=== PATIENT | female | born 1975 | race Caucasian/White ===

== ENCOUNTER 2016-09-14 23:29 | Emergency (ER) | payer BC, OTHER ==
[~2016-09-14] VITALS: Ht 167.6 cm; Wt 113.4 kg
[~2016-09-14 23:29] MED LIST: ALPR0.5T PO; ALPR0.5T7 PO; ARIP15TA PO; ATOR20TA66 PO; AZIT250T81 PO; BUSP10TA95 PO; CEFU250T11 PO; CIPR500T21 PO; D-ME118S33 PO; FLUO40CA PO; GUAI-555 PO; HYDR-3454 PO; HYDR-3820 PO; IBUP200T48 PO; LAMO150T3 PO; LAMO200T2 PO; METO-272 PO; METO-352 PO; MIRT15TA6 PO; NF-URO10 PO; OMEP40CA36 PO; POTA15TA9 PO; RANI150T15 PO; SPIR25TA3 PO; TPR25T PO; TRAZ150T42 PO; VENL75CA PO; VOLTAR PO; ZLP5T PO
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
[2016-09-15] MEDS ORDERED: NAPR500T3 PO (01:15)
[2016-09-15] MEDS ORDERED: RX-CYCLOBENZAPRINE 10 MG (FLEXERIL) TAB PPK#3 PO STA (01:15)
[2016-09-15] MEDS ORDERED: CYCL10TA9 PO (01:15)
[2016-09-15] MEDS ORDERED: RX-NAPROXEN (NAPROSYN) 250 MG TAB PPK#4 PO STA (01:15)
[2016-09-15] MEDS ORDERED: RX-CYCLOBENZAPRINE 10 MG (FLEXERIL) TAB PPK#3 PO ONE (01:22)
[2016-09-15] MEDS ORDERED: RX-NAPROXEN (NAPROSYN) 250 MG TAB PPK#4 PO ONE (01:22)
[2016-09-15 01:28] VITALS: BP 104/59
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
== END 2016-09-15 01:28 | disposition home or self-care (01) ==
LOC: EDUNIT# 23:29 → ER 23:31
DX: S00.93XA Contusion of unspecified part of head, initial encounter (principal); S16.1XXA Strain of muscle, fascia and tendon at neck level, initial encounter; S39.012A Strain of muscle, fascia and tendon of lower back, initial encounter; N20.0 Calculus of kidney; N83.202 Unspecified ovarian cyst, left side; R91.1 Solitary pulmonary nodule; V40.5XXA Car driver injured in collision with pedestrian or animal in traffic accident, initial encounter; Y92.410 Unspecified street and highway as the place of occurrence of the external cause; Y99.8 Other external cause status
CPT/HCPCS: 70450; 71010; 72125; 72128; 72131; 73030; 99283

== ENCOUNTER → 2017-03-12 | Outpatient (CLI) | payer BC, OTHER ==
[~2017-03-12] MED LIST changes: +CYCL10TA9 PO; +IOHEXOL 350 MG/ML 100 ML (OMNIPAQUE 350) VIAL IV ONE; +NAPR500T3 PO; +NS 100 ML (IVPB) BAG IV ONE
--- NOTE | 2017-03-12 12:21 | Diagnostic Imaging Report ---
PROCEDURE: CT pelvis with contrast. TECHNIQUE: Oral and intravenous contrast were administered with pelvic CT performed. INDICATION: Left lower quadrant pain. 100 mL of Omnipaque 350 is administered intravenously. FINDINGS: There is a fluid attenuation lesion in the left adnexa measuring 4 x 2.7 x 2.6 cm likely related to an ovarian cyst. No definite solid component is seen. There is suggestion of prior hysterectomy. The right adnexa demonstrate no definite abnormality. The appendix projects into the lower pelvis and appears normal. There is no significant peritoneal free fluid or evidence of abscess. The urinary bladder appears unremarkable. The osseous structures appear unremarkable. IMPRESSION: 4 cm fluid attenuation lesion in the left adnexa likely related to an ovarian cyst. Dictated by: Dictated on workstation # [id number]
== END ==
LOC: RAD 11:07
PROVIDERS: ATTEND Internal Medicine
DX: R19.09 Other intra-abdominal and pelvic swelling, mass and lump (principal)
CPT/HCPCS: 72193

== ENCOUNTER 2017-07-23 21:24 | Emergency (ER) | payer BC ==
[~2017-07-23] VITALS: Ht 167.6 cm; Wt 104.8 kg
[~2017-07-23 21:24] MED LIST changes: -IOHEXOL 350 MG/ML 100 ML (OMNIPAQUE 350) VIAL IV ONE; -METO-272 PO; +METO-370 PO; +NAPR-915 PO; -NAPR500T3 PO; -NS 100 ML (IVPB) BAG IV ONE
--- OUTSIDE RECORDS SUMMARY | 2017-07-23 21:30 | XMS REPORT ---
Author Author HANANE CHRISTIANSON Organization [facility] Address [address] [place] [address] Care Team Providers Care Head Transfer Clerk Name Role Phone SAMMY HANANE Unavailable PROBLEMS Type Condition ICD9-CM Code [id number] Code Onset Dates Condition Status SNOMED Code Problem Atherosclerosis of coronary artery of [place] heart without angina pectoris, unspecified vessel or lesion type I25.10 Active 055300994 Problem Acquired hypothyroidism E03.9 Active 144688796 Problem Wellness examination Z00.00 Active 155275509 Problem HTN (hypertension) I10 Active 80113879 Problem Bipolar depression F31.30 Active 70276372 Problem Pure hypercholesterolemia E78.00 Active 331250744 Problem Bladder spasms N32.89 Active 888564515 Problem Menopausal symptoms N95.1 Active 08370442 Problem Lumbago with sciatica, right side M54.41 Active 560746950 Problem Lumbago with sciatica, left side M54.42 Active 950212199 Problem Gastroesophageal reflux disease without esophagitis K21.9 Active 842957132 Problem Pain in thoracic spine M54.6 Active 895679948977082 ALLERGIES Substance Reaction Event Type Date Status Prednisone aggitation Drug Allergy September, Active Plastic Tape Unknown Non Drug Allergy September, Active SOCIAL HISTORY Never Assessed PLAN OF CARE Activity Details Follow Up 2 Weeks Reason:w/ PCP for follow up VITAL SIGNS Height 66 in 2016-10-06 Weight 247 lbs 2016-10-06 Temperature 98.3 degrees Fahrenheit 2016-10-06 Heart Rate 70 bpm 2016-10-06 Respiratory Rate 20 2016-10-06 BMI 39.86 kg/m2 2016-10-06 Blood pressure systolic 120 mmHg 2016-10-06 Blood pressure diastolic 84 mmHg 2016-10-06 MEDICATIONS Medication Instructions Dosage Frequency Start Date End Date Duration Status Hydrocodone-Acetaminophen 5-325 MG Orally every 6 hrs 1 tablet as needed 6h September, September, 07 days Active Spironolactone 25 TAKE ONE TABLET BY MOUTH DAILY 30 Active Metoprolol Tartrate 50 MG Orally Once a day 1 tablet 24h Active Tizanidine HCl 4 MG Orally Three times a day 1 tablet as needed 8h September, September, 07 days Active W23-Hjapfy 1 MG Active Ibuprofen 800 MG Orally Three times a day 1 tablet with food or milk 8h September, Oct, 30 day(s) Active buspirone 10 mg by inhalation route 2 times a day take 1 tablet by Oral route 3 times per day 12h Apr, Active Zantac 150 TAKE ONE TABLET BY MOUTH TWICE A DAY 30 Active Rexulti 1 MG Orally Once a day 1 tablet 24h Active Effexor XR 75 MG Orally Once a day 1 capsule with food 24h Active Lipitor 40 MG Orally Once a day 1 tablet 24h Active Xanax 0.5 mg 1 tablet by Oral route 2 times per day PRN before tests and other anxiety Dec, Active RESULTS Name Result Date Reference Range Xray : Spine, Thoracic 2 views (IN HOUSE) 2016-10-06 Xray : Spine, Cervical (IN HOUSE) 2016-10-06 PROCEDURES Procedure Date Ordered Result Body Site X-RAY EXAM OF THORACIC SPINE October 06, 2016 X-RAY EXAM OF NECK SPINE October 06, 2016 IMMUNIZATIONS No Known Immunizations MEDICAL (GENERAL) HISTORY Type Description Date Medical History hyperlipidemia Medical History arthritis in hands Medical History anxiety Medical History bi-polar Medical History Borderline Personality Disorder Surgical History cholecystectomy 2005 Surgical History hysterectomy - endometriosis 2001 Surgical History orthopedic surgery - right shoulder 1993 & 2005 Surgical History arthroscopic knee surgery - right knee - 1993 Surgical History colonoscopy 2009 Surgical History heart cath w/ Dr. Trejo WNL 2013 Surgical History Left foot-removed soft tissue growth/plantar faciatis 2014 Surgical History colonoscopy EGD 05/03/2015 Surgical History bladder mesh 08/2015 Hospitalization History no hospitalizations except surgeries
--- OUTSIDE RECORDS SUMMARY | 2017-07-23 21:30 | XMS REPORT ---
Author Author DASIA SMITH Organization [facility] Address [address] [place] [address] Care Team Providers Care Quantitative Associate Name Role Phone DASIA SMITH Unavailable PROBLEMS Type Condition ICD9-CM Code [id number] Code Onset Dates Condition Status SNOMED Code Problem HTN (hypertension) I10 Active 54918063 Problem Atherosclerosis of coronary artery of [place] heart without angina pectoris, unspecified vessel or lesion type I25.10 Active 186873813 Problem Wellness examination Z00.00 Active 504775832 Problem Pure hypercholesterolemia E78.00 Active 420244720 Problem Bipolar depression F31.30 Active 29643249 Problem Menopausal symptoms N95.1 Active 95596943 Problem Gastroesophageal reflux disease without esophagitis K21.9 Active 790503738 Problem Lumbago with sciatica, right side M54.41 Active 457077055 Problem Acquired hypothyroidism E03.9 Active 390753441 Problem Pain in thoracic spine M54.6 Active 142250841139341 Problem Lumbago with sciatica, left side M54.42 Active 932279196 ALLERGIES No Known Allergies SOCIAL HISTORY No smoking Hx information available PLAN OF CARE VITAL SIGNS MEDICATIONS Medication Instructions Dosage Frequency Start Date End Date Duration Status Lipitor 40 MG Orally Once a day 1 tablet 24h Active RESULTS No Results PROCEDURES No Known procedures IMMUNIZATIONS No Known Immunizations
--- OUTSIDE RECORDS SUMMARY | 2017-07-23 21:32 | XMS REPORT ---
Author Author CHELSIE QUINN Organization [facility] Address [address] [place] [address] Care Team Providers Care Gardener Name Role Phone RAI QUINNICE Unavailable PROBLEMS Type Condition ICD9-CM Code IJH67-CM Code Onset Dates Condition Status SNOMED Code Problem Atherosclerosis of coronary artery of [place] heart without angina pectoris, unspecified vessel or lesion type I25.10 Active 444045036 Problem Acquired hypothyroidism E03.9 Active 006184720 Problem Wellness examination Z00.00 Active 459226549 Problem HTN (hypertension) I10 Active 85204763 Problem Bipolar depression F31.30 Active 69573981 Problem Pure hypercholesterolemia E78.00 Active 867555387 Problem Bladder spasms N32.89 Active 082500023 Problem Menopausal symptoms N95.1 Active 12259977 Problem Lumbago with sciatica, right side M54.41 Active 614456618 Problem Lumbago with sciatica, left side M54.42 Active 944468960 Problem Gastroesophageal reflux disease without esophagitis K21.9 Active 270496418 Problem Pain in thoracic spine M54.6 Active 838812466092311 ALLERGIES Substance Reaction Event Type Date Status Prednisone aggitation Drug Allergy September, Active Plastic Tape Unknown Non Drug Allergy September, Active SOCIAL HISTORY Never Assessed PLAN OF CARE Activity Details Follow Up prn Reason: VITAL SIGNS Height 66 in 2016-10-25 Weight 244.2 lbs 2016-10-25 Temperature 98.6 degrees Fahrenheit 2016-10-25 Heart Rate 76 bpm 2016-10-25 Respiratory Rate 20 2016-10-25 BMI 39.41 kg/m2 2016-10-25 Blood pressure systolic 130 mmHg 2016-10-25 Blood pressure diastolic 78 mmHg 2016-10-25 MEDICATIONS Medication Instructions Dosage Frequency Start Date End Date Duration Status Rexulti 1 MG Orally Once a day 1 tablet 24h Active Effexor XR 75 MG Orally Once a day 1 capsule with food 24h Active buspirone 10 mg by inhalation route 2 times a day take 1 tablet by Oral route 3 times per day 12h Apr, Active J38-Cfcwzv 1 MG Active Zantac 150 TAKE ONE TABLET BY MOUTH TWICE A DAY 30 Active Xanax 0.5 mg 1 tablet by Oral route 2 times per day PRN before tests and other anxiety Dec, Active Lipitor 40 MG Orally Once a day 1 tablet 24h Active Ibuprofen 800 MG Orally Three times a day 1 tablet with food or milk 8h September, Oct, 30 day(s) Active Spironolactone 25 TAKE ONE TABLET BY MOUTH DAILY 30 Active Metoprolol Tartrate 50 MG Orally Once a day 1 tablet 24h Active Cephalexin 500 MG Orally every 12 hrs 1 capsule 12h September, Oct, 10 day(s) Active Phenazopyridine HCl 200 MG Orally Three times a day 1 tablet after meals 8h September, September, 3 days Active RESULTS Name Result Date Reference Range STREP A (IN HOUSE) 2016-10-25 STREP A positive Control + Lot # [id number] Exp date feb 15 UA LONG DIP (IN HOUSE) 2016-10-25 Lot # [id number] Exp date 2017 08 30 Clarity cloudy Color yellow Odor none GLU negative FRANK negative KET negative SG 1.025 BLO 2+ pH 6.0 Protein 2+ URO 0.2 NIT negative DEX 3+ Lot # [id number] Exp date 2017 07 CULTURE, URINE 2016-10-25 Urine Culture, Routine Final report Result 1 Escherichia coli Antimicrobial Susceptibility PROCEDURES Procedure Date Ordered Result Body Site STREP A ASSAY W/OPTIC October 25, 2016 URINALYSIS, AUTO, W/O SCOPE October 25, 2016 URINE CULTURE/COLONY COUNT October 25, 2016 IMMUNIZATIONS No Known Immunizations MEDICAL (GENERAL) HISTORY Type Description Date Medical History hyperlipidemia Medical History arthritis in hands Medical History anxiety Medical History bi-polar Medical History Borderline Personality Disorder Surgical History cholecystectomy 2006 Surgical History hysterectomy - endometriosis 2001 Surgical [...]
--- OUTSIDE RECORDS SUMMARY | 2017-07-23 21:34 | XMS REPORT | Continuity of Care Document ---
Author Author [facility] Address Unknown Phone Unavailable Allergies Active Description Code Type Severity Reaction Onset Reported/Identified Relationship to Patient Clinical Status Yes plastic tape OA N/A N/A 06/20/2012 Yes prednisone Drug Allergy N/A N/A 06/20/2012 Yes plastic tape OA 06/20/2012 Yes prednisone Drug Allergy 06/20/2012 Yes STEROIDS STEROIDS Mild N/A 04/08/2014 Yes tomato [id number] Drug Allergy Unknown HIVES 05/17/2014 Yes tomato Drug Allergy N/A N/A 05/22/2014 Medications There is no data. Problems Date Dx Coded Attending Type Code Diagnosis Diagnosed By 04/08/2012 MARSHAL LAMBERT APRN 296.52 MO BIPOLAR I DEPRESSED MODERATE 04/08/2012 NEREIDA JONES DO 296.52 MO BIPOLAR I DEPRESSED MODERATE 04/08/2012 296.52 MO BIPOLAR I DEPRESSED MODERATE 04/08/2012 MYKEL ZAMBRANO, ESTRELLA Ramirez 296.52 MO BIPOLAR I DEPRESSED MODERATE 04/08/2012 MARSHAL LAMBERT APRN 296.52 MO BIPOLAR I DEPRESSED MODERATE 04/08/2012 NEREIDA JONES DO 296.52 MO BIPOLAR I DEPRESSED MODERATE 04/08/2012 NEREIDA JONES DO 296.52 MO BIPOLAR I DEPRESSED MODERATE 04/08/2012 MYKEL ZAMBRANO, ESTRELLA Ramirez 296.52 MO BIPOLAR I DEPRESSED MODERATE 04/08/2012 296.52 MO BIPOLAR I DEPRESSED MODERATE 04/08/2012 296.52 MO BIPOLAR I DEPRESSED MODERATE 04/08/2012 296.52 MO BIPOLAR I DEPRESSED MODERATE 04/08/2012 NEREIDA JONES DO 296.52 MO BIPOLAR I DEPRESSED MODERATE 04/08/2012 296.52 MO BIPOLAR I DEPRESSED MODERATE 04/08/2012 296.52 MO BIPOLAR I DEPRESSED MODERATE 04/08/2012 296.52 MO BIPOLAR I DEPRESSED MODERATE 04/08/2012 296.52 MO BIPOLAR I DEPRESSED MODERATE 04/08/2012 AMARILYS PEÑA DO 296.52 MO BIPOLAR I DEPRESSED MODERATE 04/08/2012 BLAYNE LEMUS DDS 296.52 MO BIPOLAR I DEPRESSED MODERATE 04/08/[address] BETTS 296.52 MO BIPOLAR I DEPRESSED MODERATE 04/08/2012 ALFONSO NIELSEN MD 296.52 MO BIPOLAR I DEPRESSED MODERATE 04/08/2012 PETRA STOLL, MARSHAL S 296.52 MO BIPOLAR I DEPRESSED MODERATE 04/08/2012 PETRA STOLL MARSHAL S 296.52 MO BIPOLAR I DEPRESSED MODERATE 04/08/2012 DESHPANDERUBEN STOLL, PK BETTS 296.52 MO BIPOLAR I DEPRESSED MODERATE 04/08/2012 PEÑA DO, AMARILYS K 296.52 MO BIPOLAR I DEPRESSED MODERATE 04/08/2012 DESHPANDERUBEN STOLL, PK BETTS 296.52 MO BIPOLAR I DEPRESSED MODERATE 04/08/2012 DESHPANDERUBEN STOLL, PK BETTS 296.52 MO BIPOLAR I DEPRESSED MODERATE 04/08/2012 PETRA STOLL, MARSHAL S 296.52 MO BIPOLAR I DEPRESSED MODERATE 04/08/2012 PEÑA DO, AMARILYS K 296.52 MO BIPOLAR I DEPRESSED MODERATE 04/08/2012 FELIX DPM, KOLE 296.52 MO BIPOLAR I DEPRESSED MODERATE 04/08/2012 FELIX DPM, KOLE 296.52 MO BIPOLAR I DEPRESSED MODERATE 04/08/2012 FELIX DPM, KOLE 296.52 MO BIPOLAR I DEPRESSED MODERATE 04/08/2012 FELIX DPM, KOLE 296.52 MO BIPOLAR I DEPRESSED MODERATE 04/08/2012 PETRA STOLL, MARSHAL S 296.52 MO BIPOLAR I DEPRESSED MODERATE 04/08/2012 PETRA STOLL, MARSHAL S 296.52 MO BIPOLAR I DEPRESSED MODERATE 04/08/2012 FELIX DPM, KOLE 296.52 MO BIPOLAR I DEPRESSED MODERATE 04/08/2012 OMAIRA CARDENAS APRN D 296.52 MO BIPOLAR I DEPRESSED MODERATE 04/08/2012 OMAIRA CARDENAS APRN D 296.52 MO BIPOLAR I DEPRESSED MODERATE 05/02/2012 SUNNY LAMBERT APRNNDA S 256.4 POLYCYSTIC OVARIAN SYNDROME 05/02/2012 SUNNY LAMBERT APRNNDA S 272.0 HYPERCHOLESTEROLEMIA 05/02/2012 SUNNY LAMBERT APRNNDA S 305.1 NONDEPENDENT TOBACCO USE DISORDER 05/02/2012 NEREIDA JONES DO 256.4 POLYCYSTIC OVARIAN SYNDROME 05/02/2012 NEREIDA JONES DO 272.0 HYPERCHOLESTEROLEMIA 05/02/2012 NEREIDA JONES DO 305.1 NONDEPENDENT TOBACCO USE DISORDER 05/02/2012 256.4 POLYCYSTIC OVARIAN SYNDROME 05/02/2012 272.0 HYPERCHOLESTEROLEMIA 05/02/2012 305.1 NONDEPENDENT TOBACCO USE DISORDER 05/02/2012 ESTRELLA HOGUE PHD 256.4 POLYCYSTIC OVARIAN SYNDROME 05/02/2012 ESTRELLA HOGUE PHD 272.0 HYPERCHOLESTEROLEMIA 05/02/2012 ESTRELLA HOGUE PHD 305.1 NONDEPENDENT TOBACCO USE DISORDER 05/02/2012 EREN LAMBERT APRNA S 256.4 POLYCYSTIC OVARIAN SYNDROME 05/02/2012 PETRA STOLL MARSHAL S 272.0 HYPERCHOLESTEROLEMIA 05/02/2012 PETRA STOLL MARSHAL S 305.1 NONDEPENDENT TOBACCO USE DISORDER 05/02/2012 NEREIDA JONES DO 256.4 POLYCYSTIC OVARIAN SYNDROME 05/02/2012 NEREIDA JONES DO 272.0 HYPERCHOLESTEROLEMIA 05/02/2012 NEREIDA JONES DO 305.1 NONDEPENDENT TOBACCO USE DISORDER 05/02/2012 NEREIDA JONES DO 256.4 POLYCYSTIC OVARIAN SYNDROME 05/02/2012 NEREIDA JONES DO 272.0 HYPERCHOLESTEROLEMIA 05/02/2012 NEREIDA JONES DO 305.1 NONDEPENDENT TOBACCO USE DISORDER 05/02/2012 ESTRELLA HOGUE PHD 256.4 POLYCYSTIC OVARIAN SYNDROME 05/02/2012 ESTRELLA HOGUE PHD 272.0 HYPERCHOLESTEROLEMIA 05/02/2012 ESTRELLA HOGUE PHD 305.1 NONDEPENDENT TOBACCO USE DISORDER 05/02/2012 256.4 POLYCYSTIC OVARIAN SYNDROME 05/02/2012 272.0 HYPERCHOLESTEROLEMIA 05/02/2012 305.1 NONDEPENDENT TOBACCO USE DISORDER 05/02/2012 256.4 POLYCYSTIC OVARIAN SYNDROME 05/02/2012 272.0 HYPERCHOLESTEROLEMIA 05/02/2012 305.1 NONDEPENDENT TOBACCO USE DISORDER 05/02/2012 256.4 POLYCYSTIC OVARIAN SYNDROME 05/02/2012 272.0 HYPERCHOLESTEROLEMIA 05/02/2012 305.1 NICOTINE DEPENDENCE 05/02/2012 NEREIDA JONES DO 256.4 POLYCYSTIC OVARIAN SYNDROME 05/02/2012 NEREIDA JONES DO 272.0 HYPERCHOLESTEROLEMIA 05/02/2012 NEREIDA JONES DO 305.1 NICOTINE DEPENDENCE 05/02/2012 256.4 POLYCYSTIC OVARIAN SYNDROME 05/02/2012 272.0 HYPERCHOLESTEROLEMIA 05/02/2012 305.1 NICOTINE DEPENDENCE 05/02/2012 256.4 POLYCYSTIC OVARIAN SYNDROME 05/02/2012 272.0 HYPERCHOLESTEROLEMIA 05/02/2012 305.1 NICOTINE DEPENDENCE 05/02/2012 256.4 POLYCYSTIC OVARIAN SYNDROME 05/02/2012 272.0 HYPERCHOLESTEROLEMIA 05/02/2012 305.1 NICOTINE DEPENDENCE 05/02/2012 256.4 POLYCYSTIC OVARIAN SYNDROME 05/02/2012 272.0 HYPERCHOLESTEROLEMIA 05/02/2012 305.1 NICOTINE DEPENDENCE 05/02/2012 PEÑA DO, AMARILYS K 256.4 POLYCYSTIC OVARIAN SYNDROME 05/02/2012 PEÑA DO, AMARILYS K 272.0 HYPERCHOLESTEROLEMIA 05/02/2012 PEÑA DO, AMARILYS K 305.1 NICOTINE DEPENDENCE 05/02/2012 BLAYNE LEMUS DDS 256.4 POLYCYSTIC OVARIAN SYNDROME 05/02/2012 MARIAH LOPEZS, BLAYNE M 272.0 HYPERCHOLESTEROLEMIA 05/02/2012 MARIAH LOPEZS, BLAYNE M 305.1 NICOTINE DEPENDENCE 05/02/2012 PK DESHPANDE APRN 256.4 POLYCYSTIC OVARIAN SYNDROME 05/02/2012 PK DESHPANDE APRN 272.0 HYPERCHOLESTEROLEMIA 05/02/2012 PK DESHPANDE APRN 305.1 NICOTINE DEPENDENCE 05/02/2012 ALFONSO NIELSEN MD 256.4 POLYCYSTIC OVARIAN SYNDROME 05/02/2012 ALFONSO NIELSEN MD 272.0 HYPERCHOLESTEROLEMIA 05/02/2012 ALFONSO NIELSEN MD 305.1 NICOTINE DEPENDENCE 05/02/2012 SUNNY LAMBERT APRNNDA S 256.4 POLYCYSTIC OVARIAN SYNDROME 05/02/2012 PETRA STOLL, MARSHAL S 272.0 HYPERCHOLESTEROLEMIA 05/02/2012 PETRA STOLL, MARSHAL S 305.1 NONDEPENDENT TOBACCO USE DISORDER 05/02/2012 PETRA STOLL, MARSHAL S 256.4 POLYCYSTIC OVARIAN SYNDROME 05/02/2012 PETRA STOLL, MARSHAL S 272.0 HYPERCHOLESTEROLEMIA 05/02/2012 PETRA STOLL, MARSHAL S 305.1 NICOTINE DEPENDENCE 05/02/2012 PK DESHPANDE APRN 256.4 POLYCYSTIC OVARIAN SYNDROME 05/02/2012 PK DESHPANDE APRN 272.0 HYPERCHOLESTEROLEMIA 05/02/2012 PK DESHPANDE APRN 305.1 NICOTINE DEPENDENCE 05/02/2012 PEÑA DO, AMARILYS K 256.4 POLYCYSTIC OVARIAN SYNDROME 05/02/2012 PEÑA DO, AMARILYS K 272.0 HYPERCHOLESTEROLEMIA 05/02/2012 PEÑA DO, AMARILYS K 305.1 NICOTINE DEPENDENCE 05/02/2012 CHARLEE STOLL, PK BETTS 256.4 POLYCYSTIC OVARIAN SYNDROME 05/02/2012 CHARLEE B OPERATOR, PK BETTS 272.0 HYPERCHOLESTEROLEMIA 05/02/2012 CHARLEE WEBBN, PK BETTS 305.1 NICOTINE DEPENDENCE 05/02/2012 CHARLEE WEBBN, PK BETTS 256.4 POLYCYSTIC OVARIAN SYNDROME 05/02/2012 CHARLEE WEBBN, PK BETTS 272.0 HYPERCHOLESTEROLEMIA 05/02/2012 CHARLEE STOLL, PK BETTS 305.1 NICOTINE DEPENDENCE 05/02/2012 PETRASUNNY ANSARI APRNNDA S 256.4 POLYCYSTIC OVARIAN SYNDROME 05/02/2012 SUNNY LAMBERT APRNNDA S 272.0 HYPERCHOLESTEROLEMIA 05/02/2012 PETRA STOLL MARSHAL S 305.1 NICOTINE DEPENDENCE 05/02/2012 PEÑA DO, AMARILYS K 256.4 POLYCYSTIC OVARIAN SYNDROME 05/02/2012 PEÑA DO, AMARILYS K 272.0 HYPERCHOLESTEROLEMIA 05/02/2012 PEÑA DO, AMARILYS K 305.1 NICOTINE DEPENDENCE 05/02/2012 FELIX DPM, KOLE 256.4 POLYCYSTIC OVARIAN SYNDROME 05/02/2012 FELIX DPM, KOLE 272.0 HYPERCHOLESTEROLEMIA 05/02/2012 FELIX DPM, KOLE 305.1 NICOTINE DEPENDENCE 05/02/2012 FELIX DPM, KOLE 256.4 POLYCYSTIC OVARIAN SYNDROME 05/02/2012 FELIX DPM, KOLE 272.0 HYPERCHOLESTEROLEMIA 05/02/2012 FELIX DPM, KOLE 305.1 NICOTINE DEPENDENCE 05/02/2012 FELIX DPM, KOLE 256.4 POLYCYSTIC OVARIAN SYNDROME 05/02/2012 FELIX DPM, KOLE 272.0 HYPERCHOLESTEROLEMIA 05/02/2012 FELIX DPM, KOLE 305.1 NICOTINE DEPENDENCE 05/02/2012 FELIX DPM, KOLE 256.4 POLYCYSTIC OVARIAN SYNDROME 05/02/2012 FELIX DPM, KOLE 272.0 HYPERCHOLESTEROLEMIA 05/02/2012 FELIX DPM, KOLE 305.1 NICOTINE DEPENDENCE 05/02/2012 PETRA B OPERATOR, MARSHLA S 256.4 POLYCYSTIC OVARIAN SYNDROME 05/02/2012 PETRA STOLL, MARSHAL S 272.0 HYPERCHOLESTEROLEMIA 05/02/2012 PETRA WEBBN, MARSHAL S 305.1 NICOTINE DEPENDENCE 05/02/2012 PETRA WEBBN, MARSHAL S 256.4 POLYCYSTIC OVARIAN SYNDROME 05/02/2012 PETRA WEBBN, MARSHAL S 272.0 HYPERCHOLESTEROLEMIA 05/02/2012 PETRA WEBBN, MARSHAL S 305.1 NICOTINE DEPENDENCE 05/02/2012 FELIX DPM, KOLE 256.4 POLYCYSTIC OVARIAN SYNDROME 05/02/2012 FELIX DPM, KOLE 272.0 HYPERCHOLESTEROLEMIA 05/02/2012 FELIX DPM, KOLE 305.1 NICOTINE DEPENDENCE 05/02/2012 OMAIRA CARDENAS APRN 256.4 POLYCYSTIC OVARIAN SYNDROME 05/02/2012 OMAIRA CARDENAS APRN D 272.0 HYPERCHOLESTEROLEMIA 05/02/2012 OMAIRA CARDENAS APRN 305.1 NICOTINE DEPENDENCE 05/02/2012 OMAIRA CARDENAS APRN 256.4 POLYCYSTIC OVARIAN SYNDROME 05/02/2012 OMAIRA CARDENAS APRN 272.0 HYPERCHOLESTEROLEMIA 05/02/2012 OMAIRA CARDENAS APRN 305.1 NICOTINE DEPENDENCE 05/05/2012 SUNNY LAMBERT APRNNDA S 244.9 HYPOTHYROIDISM 05/05/2012 NEREIDA JONES DO 244.9 HYPOTHYROIDISM 05/05/2012 244.9 HYPOTHYROIDISM 05/05/2012 MYKEL PHD, ESTRELLA Ramirez 244.9 HYPOTHYROIDISM 05/05/2012 EREN LAMBERT APRNA S 244.9 HYPOTHYROIDISM 05/05/2012 NEREIDA JONES DO 244.9 HYPOTHYROIDISM 05/05/2012 NEREIDA JONES DO 244.9 HYPOTHYROIDISM 05/05/2012 MYKEL PHD, ESTRELLA Ramirez 244.9 HYPOTHYROIDISM 05/05/2012 244.9 HYPOTHYROIDISM 05/05/2012 244.9 HYPOTHYROIDISM 05/05/2012 244.9 HYPOTHYROIDISM 05/05/2012 NEREIDA JONES DO 244.9 HYPOTHYROIDISM 05/05/2012 244.9 HYPOTHYROIDISM 05/05/2012 244.9 HYPOTHYROIDISM 05/05/2012 244.9 HYPOTHYROIDISM 05/05/2012 244.9 HYPOTHYROIDISM 05/05/2012 AMARILYS PEÑA DO 244.9 HYPOTHYROIDISM 05/05/2012 MARIAH SMITH, BLAYNE [place] 244.9 HYPOTHYROIDISM 05/05/2012 DESHPANDE B OPERATOR, PK BETTS 244.9 HYPOTHYROIDISM 05/05/2012 GIA GRIJALVA, ALFONSO 244.9 HYPOTHYROIDISM 05/05/2012 SUNNY LAMBERT APRNNDA S 244.9 HYPOTHYROIDISM 05/05/2012 CHARLEE WEBBN, PK BETTS 244.9 HYPOTHYROIDISM 05/05/2012 PEÑA DO, AMARILYS K 244.9 HYPOTHYROIDISM 05/05/2012 CHARLEE WEBBN, PK BETTS 244.9 HYPOTHYROIDISM 05/05/2012 DESHPANDE B OPERATOR, PK BETTS 244.9 HYPOTHYROIDISM 05/05/2012 PETRA STOLL, MARSHAL S 244.9 HYPOTHYROIDISM 05/05/2012 PEÑA DO, AMARILYS K 244.9 HYPOTHYROIDISM 05/05/2012 FELIX DPM, KLOE 244.9 HYPOTHYROIDISM 05/05/2012 FELIX DPM, KOLE 244.9 HYPOTHYROIDISM 05/05/2012 FELIX DPM, KOLE 244.9 HYPOTHYROIDISM 05/05/2012 FELIX DPM, KOLE 244.9 HYPOTHYROIDISM 05/05/2012 SUNNY LAMBERT APRNNDA S 244.9 HYPOTHYROIDISM 05/05/2012 SUNNY LAMBERT APRNNDA S 244.9 HYPOTHYROIDISM 05/05/2012 FELIX DPM, KOLE 244.9 HYPOTHYROIDISM 05/05/2012 OMAIRA CARDENAS APRN 244.9 HYPOTHYROIDISM 05/05/2012 OMAIRA CARDENAS APRN 244.9 HYPOTHYROIDISM 05/19/2012 NEREIDA JONES DO 296.80 BIPOLAR DISORDER UNSPECIFIED 05/19/2012 NEREIDA JONES DO 300.23 AN SOCIAL PHOBIA 05/19/2012 296.80 BIPOLAR DISORDER UNSPECIFIED 05/19/2012 300.23 AN SOCIAL PHOBIA 05/19/2012 MYKEL ZAMBRANO, ESTRELLA Ramirez 296.80 BIPOLAR DISORDER UNSPECIFIED 05/19/2012 MYKEL ZAMBRANO, ESTRELLA Ramirez 300.23 AN SOCIAL PHOBIA 05/19/2012 MARSHAL LAMBERT APRN S 296.80 BIPOLAR DISORDER UNSPECIFIED 05/19/2012 EREN LAMBERT APRNA S 300.23 AN SOCIAL PHOBIA 05/19/2012 NEREIDA JONES DO 296.80 BIPOLAR DISORDER UNSPECIFIED 05/19/2012 NEREIDA JONES DO 300.23 AN SOCIAL PHOBIA 05/19/2012 WERDER DO, NEREIDA F 296.80 BIPOLAR DISORDER UNSPECIFIED 05/19/2012 KAREN DONEREIDA F 300.23 AN SOCIAL PHOBIA 05/19/2012 ESTRELLA HOGUE PHD 296.80 BIPOLAR DISORDER UNSPECIFIED 05/19/2012 ESTRELLA HOGUE PHD 300.23 AN SOCIAL PHOBIA 05/19/2012 296.80 BIPOLAR DISORDER UNSPECIFIED 05/19/2012 300.23 AN SOCIAL PHOBIA 05/19/2012 296.80 BIPOLAR DISORDER UNSPECIFIED 05/19/2012 300.23 AN SOCIAL PHOBIA 05/19/2012 296.80 BIPOLAR DISORDER UNSPECIFIED 05/19/2012 300.23 AN SOCIAL PHOBIA 05/19/2012 WERMANJEET DO, NEREIDA F 296.80 BIPOLAR DISORDER UNSPECIFIED 05/19/2012 KAREN DO NEREIDA F 300.23 AN SOCIAL PHOBIA 05/19/2012 296.80 BIPOLAR DISORDER UNSPECIFIED 05/19/2012 300.23 AN SOCIAL PHOBIA 05/19/2012 296.80 BIPOLAR DISORDER UNSPECIFIED 05/19/2012 300.23 AN SOCIAL PHOBIA 05/19/2012 296.80 BIPOLAR DISORDER UNSPECIFIED 05/19/2012 300.23 AN SOCIAL PHOBIA 05/19/2012 296.80 BIPOLAR DISORDER UNSPECIFIED 05/19/2012 300.23 AN SOCIAL PHOBIA 05/19/2012 PEÑA DOAMARILYS K 296.80 BIPOLAR DISORDER UNSPECIFIED 05/19/2012 PEÑA DOKIANA K 300.23 AN SOCIAL PHOBIA 05/19/2012 BLAYNE LEMUS DDS 296.80 BIPOLAR DISORDER UNSPECIFIED 05/19/2012 BLAYNE LEMUS DDS 300.23 AN SOCIAL PHOBIA 05/19/2012 PK DESHPANDE APRN 296.80 BIPOLAR DISORDER UNSPECIFIED 05/19/2012 PK DESHPANDE APRN 300.23 AN SOCIAL PHOBIA 05/19/2012 ALFONSO NIELSEN MD 296.80 BIPOLAR DISORDER UNSPECIFIED 05/19/2012 ALFONSO NIELSEN MD 300.23 AN SOCIAL PHOBIA 05/19/2012 MARSHAL LAMBERT APRN S 296.80 BIPOLAR DISORDER UNSPECIFIED 05/19/2012 MARSHAL LAMBERT APRN S 300.23 AN SOCIAL PHOBIA 05/19/2012 PK DESHPANDE APRN 296.80 BIPOLAR DISORDER UNSPECIFIED 05/19/2012 DESHPANDE B OPERATOR, PK ALPESH 300.23 AN SOCIAL PHOBIA 05/19/2012 PEÑA DO, AMARILYS K 296.80 BIPOLAR DISORDER UNSPECIFIED 05/19/2012 PEÑA DO, AMARILYS K 300.23 AN SOCIAL PHOBIA 05/19/2012 DESHPANDE B OPERATOR, PK BETTS 296.80 BIPOLAR DISORDER UNSPECIFIED 05/19/2012 DESHPANDE B OPERATOR, PK BETTS 300.23 AN SOCIAL PHOBIA 05/19/2012 DESHPANDE B OPERATOR, PK BETTS 296.80 BIPOLAR DISORDER UNSPECIFIED 05/19/2012 DESHPANDE B OPERATOR, PK BETTS 300.23 AN SOCIAL PHOBIA 05/19/2012 PETRA TSOLL, MARSHAL S 296.80 BIPOLAR DISORDER UNSPECIFIED 05/19/2012 PETRA STOLL, MARSHAL S 300.23 AN SOCIAL PHOBIA 05/19/2012 PEÑA DO, AMARILYS K 296.80 BIPOLAR DISORDER UNSPECIFIED 05/19/2012 PEÑA DO, AMARILYS K 300.23 AN SOCIAL PHOBIA 05/19/2012 FELIX DPM, KOLE 296.80 BIPOLAR DISORDER UNSPECIFIED 05/19/2012 FELIX DPM, KOLE 300.23 AN SOCIAL PHOBIA 05/19/2012 FELIX DPM, KOLE 296.80 BIPOLAR DISORDER UNSPECIFIED 05/19/2012 FELIX DPM, KOLE 300.23 AN SOCIAL PHOBIA 05/19/2012 FELIX DPM, KOLE 296.80 BIPOLAR DISORDER UNSPECIFIED 05/19/2012 FELIX DPM, KOLE 300.23 AN SOCIAL PHOBIA 05/19/2012 FELIX DPM, KOLE 296.80 BIPOLAR DISORDER UNSPECIFIED 05/19/2012 FELIX DPM, KOLE 300.23 AN SOCIAL PHOBIA 05/19/2012 PETRA STOLL, MARSHAL S 296.80 BIPOLAR DISORDER UNSPECIFIED 05/19/2012 PETRA STOLL, MARSHAL S 300.23 AN SOCIAL PHOBIA 05/19/2012 PETRA STOLL MARSHAL S 296.80 BIPOLAR DISORDER UNSPECIFIED 05/19/2012 PETRA STOLL MARSHAL S 300.23 AN SOCIAL PHOBIA 05/19/2012 FELIX DPM, KOLE 296.80 BIPOLAR DISORDER UNSPECIFIED 05/19/2012 FELIX DPM, KOLE 300.23 AN SOCIAL PHOBIA 05/19/2012 OMAIRA CARDENAS APRN 296.80 BIPOLAR DISORDER UNSPECIFIED 05/19/2012 OMAIRA CARDENAS APRN 300.23 AN SOCIAL PHOBIA 05/19/2012 OMAIRA CARDENAS APRN 296.80 BIPOLAR DISORDER UNSPECIFIED 05/19/2012 OMAIRA CARDENAS APRN 300.23 AN SOCIAL PHOBIA 06/20/2012 EREN LAMBERT APRNA S 782.1 RASH AND OTHER NONSPECIFIC SKIN ERUPTION 06/20/2012 EREN LAMBERT APRNA S V72.31 REINFORCING STEEL MACHINE OPERATOR EXAM, ROUTINE 06/20/2012 SUNNY LAMBERT APRNNDA S V76.10 BREAST CANCER SCREENING 06/20/2012 PETRA STOLL MARSHAL S V76.2 CERVICAL CANCER SCREENING (PAP SMEAR) 06/20/2012 NEREIDA JONES DO 782.1 RASH AND OTHER NONSPECIFIC SKIN ERUPTION 06/20/2012 NEREIDA JONES DO V72.31 REINFORCING STEEL MACHINE OPERATOR EXAM, ROUTINE 06/20/2012 NEREIDA JONES DO V76.10 BREAST CANCER SCREENING 06/20/2012 NEREIDA JONES DO V76.2 CERVICAL CANCER SCREENING (PAP SMEAR) 06/20/2012 NEREIDA JONES DO 782.1 RASH AND OTHER NONSPECIFIC SKIN ERUPTION 06/20/2012 NEREIDA JONES DO V72.31 REINFORCING STEEL MACHINE OPERATOR EXAM, ROUTINE 06/20/2012 NEREIDA JONES DO V76.10 BREAST CANCER SCREENING 06/20/2012 NEREIDA JONES DO V76.2 CERVICAL CANCER SCREENING (PAP SMEAR) 06/20/2012 ESTRELLA HOGUE PHD 782.1 RASH AND OTHER NONSPECIFIC SKIN ERUPTION 06/20/2012 ESTRELLA HOGUE PHD V72.31 REINFORCING STEEL MACHINE OPERATOR EXAM, ROUTINE 06/20/2012 ESTRELLA HOGUE PHD V76.10 BREAST CANCER SCREENING 06/20/2012 ESTRELLA HOGUE PHD V76.2 CERVICAL CANCER SCREENING (PAP SMEAR) 06/20/2012 782.1 RASH AND OTHER NONSPECIFIC SKIN ERUPTION 06/20/2012 V72.31 REINFORCING STEEL MACHINE OPERATOR EXAM, ROUTINE 06/20/2012 V76.10 BREAST CANCER SCREENING 06/20/2012 V76.2 CERVICAL CANCER SCREENING (PAP SMEAR) 06/20/2012 782.1 RASH AND OTHER NONSPECIFIC SKIN ERUPTION 06/20/2012 V72.31 REINFORCING STEEL MACHINE OPERATOR EXAM, ROUTINE 06/20/2012 V76.10 BREAST CANCER SCREENING 06/20/2012 V76.2 CERVICAL CANCER SCREENING (PAP SMEAR) 06/20/2012 782.1 RASH AND OTHER NONSPECIFIC SKIN ERUPTION 06/20/2012 V72.31 REINFORCING STEEL MACHINE OPERATOR EXAM, ROUTINE 06/20/2012 V76.10 BREAST CANCER SCREENING 06/20/2012 V76.2 CERVICAL CANCER SCREENING (PAP SMEAR) 06/20/2012 NEREIDA JONES DO F 782.1 RASH AND OTHER NONSPECIFIC SKIN ERUPTION 06/20/2012 NEREIDA JONES DO F V72.31 REINFORCING STEEL MACHINE OPERATOR EXAM, ROUTINE 06/20/2012 NEREIDA JONES DO F V76.10 BREAST CANCER SCREENING 06/20/2012 NEREIDA JONES DO F V76.2 CERVICAL CANCER SCREENING (PAP SMEAR) 06/20/2012 782.1 RASH AND OTHER NONSPECIFIC SKIN ERUPTION 06/20/2012 V72.31 REINFORCING STEEL MACHINE OPERATOR EXAM, ROUTINE 06/20/2012 V76.10 BREAST CANCER SCREENING 06/20/2012 V76.2 CERVICAL CANCER SCREENING (PAP SMEAR) 06/20/2012 782.1 RASH AND OTHER NONSPECIFIC SKIN ERUPTION 06/20/2012 V72.31 REINFORCING STEEL MACHINE OPERATOR EXAM, ROUTINE 06/20/2012 V76.10 BREAST CANCER SCREENING 06/20/2012 V76.2 CERVICAL CANCER SCREENING (PAP SMEAR) 06/20/2012 782.1 RASH AND OTHER NONSPECIFIC SKIN ERUPTION 06/20/2012 V72.31 REINFORCING STEEL MACHINE OPERATOR EXAM, ROUTINE 06/20/2012 V76.10 BREAST CANCER SCREENING 06/20/2012 V76.2 CERVICAL CANCER SCREENING (PAP SMEAR) 06/20/2012 782.1 RASH AND OTHER NONSPECIFIC SKIN ERUPTION 06/20/2012 V72.31 REINFORCING STEEL MACHINE OPERATOR EXAM, ROUTINE 06/20/2012 V76.10 BREAST CANCER SCREENING 06/20/2012 V76.2 CERVICAL CANCER SCREENING (PAP SMEAR) 06/20/2012 AMARILYS PEÑA DO 782.1 RASH AND OTHER NONSPECIFIC SKIN ERUPTION 06/20/2012 AMARILYS PEÑA DO K V72.31 REINFORCING STEEL MACHINE OPERATOR EXAM, ROUTINE 06/20/2012 AMARILYS PEÑA DO K V76.10 BREAST CANCER SCREENING 06/20/2012 KIAN PEÑA DOA K V76.2 CERVICAL CANCER SCREENING (PAP SMEAR) 06/20/2012 BLAYNE LEMUS DDS 782.1 RASH AND OTHER NONSPECIFIC SKIN ERUPTION 06/20/2012 BLAYNE LEMUS DDS V72.31 REINFORCING STEEL MACHINE OPERATOR EXAM, ROUTINE 06/20/2012 BLAYNE LEMUS DDS V76.10 BREAST CANCER SCREENING 06/20/2012 BLAYNE LEMUS DDS V76.2 CERVICAL CANCER SCREENING (PAP SMEAR) 06/20/2012 PK DESHPANDE APRN 782.1 RASH AND OTHER NONSPECIFIC SKIN ERUPTION 06/20/2012 CHARLEE STOLL PK ALPESH V72.31 REINFORCING STEEL MACHINE OPERATOR EXAM, ROUTINE 06/20/2012 PK DESHPANDE APRN V76.10 BREAST CANCER SCREENING 06/20/2012 PK DESHPANDE APRN V76.2 CERVICAL CANCER SCREENING (PAP SMEAR) 06/20/2012 ALFONSO NIELSEN MD 782.1 RASH AND OTHER NONSPECIFIC SKIN ERUPTION 06/20/2012 ALFONSO NIELSEN MD V72.31 REINFORCING STEEL MACHINE OPERATOR EXAM, ROUTINE 06/20/2012 ALFONSO NIELSEN MD V76.10 BREAST CANCER SCREENING 06/20/2012 ALFONSO NIELSEN MD V76.2 CERVICAL CANCER SCREENING (PAP SMEAR) 06/20/2012 EREN LAMBERT APRNA S 782.1 RASH AND OTHER NONSPECIFIC SKIN ERUPTION 06/20/2012 MARSHAL LAMBERT APRN S V72.31 REINFORCING STEEL MACHINE OPERATOR EXAM, ROUTINE 06/20/2012 EREN LAMBERT APRNA S V76.10 BREAST CANCER SCREENING 06/20/2012 EREN LAMBERT APRNA S V76.2 CERVICAL CANCER SCREENING (PAP SMEAR) 06/20/2012 PK DESHPANDE APRN 782.1 RASH AND OTHER NONSPECIFIC SKIN ERUPTION 06/20/2012 PK DESHPANDE APRN V72.31 REINFORCING STEEL MACHINE OPERATOR EXAM, ROUTINE 06/20/2012 PK DESHPANDE APRN V76.10 BREAST CANCER SCREENING 06/20/2012 PK DESHPANDE APRN V76.2 CERVICAL CANCER SCREENING (PAP SMEAR) 06/20/2012 MARIANA WOLFE AMARILYS K 782.1 RASH AND OTHER NONSPECIFIC SKIN ERUPTION 06/20/2012 MARIANA WOLFE AMARILYS K V72.31 REINFORCING STEEL MACHINE OPERATOR EXAM, ROUTINE 06/20/2012 PEÑA DO AMARILYS K V76.10 BREAST CANCER SCREENING 06/20/2012 MARIANA WOLFE AMARILYS K V76.2 CERVICAL CANCER SCREENING (PAP SMEAR) 06/20/2012 PK DESHPANDE APRN 782.1 RASH AND OTHER NONSPECIFIC SKIN ERUPTION 06/20/2012 DESHPANDERUBEN STOLL PK BETTS V72.31 REINFORCING STEEL MACHINE OPERATOR EXAM, ROUTINE 06/20/2012 DESHPANDE B OPERATOR, PK BETTS V76.10 BREAST CANCER SCREENING 06/20/2012 DESHPANDE B OPERATOR, PK BETTS V76.2 CERVICAL CANCER SCREENING (PAP SMEAR) 06/20/2012 DESHPANDE DODIE PK BETTS 782.1 RASH AND OTHER NONSPECIFIC SKIN ERUPTION 06/20/2012 DESHPANDE B OPERATOR, PK BETTS V72.31 REINFORCING STEEL MACHINE OPERATOR EXAM, ROUTINE 06/20/2012 DESHPANDE B OPERATOR, PK BETTS V76.10 BREAST CANCER SCREENING 06/20/2012 DESHPANDE B OPERATOR, PK BETTS V76.2 CERVICAL CANCER SCREENING (PAP SMEAR) 06/20/2012 PETRA STOLL MARSHAL S 782.1 RASH AND OTHER NONSPECIFIC SKIN ERUPTION 06/20/2012 PETRA STOLL MARSHAL S V72.31 REINFORCING STEEL MACHINE OPERATOR EXAM, ROUTINE 06/20/2012 PETRA STOLL MARSHAL S V76.10 BREAST CANCER SCREENING 06/20/2012 PETRA STOLL MARSHAL S V76.2 CERVICAL CANCER SCREENING (PAP SMEAR) 06/20/2012 PEÑA DO AMARILYS K 782.1 RASH AND OTHER NONSPECIFIC SKIN ERUPTION 06/20/2012 PEÑA DO AMARILYS K V72.31 REINFORCING STEEL MACHINE OPERATOR EXAM, ROUTINE 06/20/2012 PEÑA DO AMARILYS K V76.10 BREAST CANCER SCREENING 06/20/2012 PEÑA DO AMARILYS K V76.2 CERVICAL CANCER SCREENING (PAP SMEAR) 06/20/2012 FELIX DPM, KOLE 782.1 RASH AND OTHER NONSPECIFIC SKIN ERUPTION 06/20/2012 FELIX DPM, KOLE V72.31 REINFORCING STEEL MACHINE OPERATOR EXAM, ROUTINE 06/20/2012 FELIX DPM, KOLE V76.10 BREAST CANCER SCREENING 06/20/2012 FELIX DPM, KOLE V76.2 CERVICAL CANCER SCREENING (PAP SMEAR) 06/20/2012 FELIX DPM, KOLE 782.1 RASH AND OTHER NONSPECIFIC SKIN ERUPTION 06/20/2012 FELIX DPM, KOLE V72.31 REINFORCING STEEL MACHINE OPERATOR EXAM, ROUTINE 06/20/2012 FELIX DPM, KOLE V76.10 BREAST CANCER SCREENING 06/20/2012 FELIX DPM, KOLE V76.2 CERVICAL CANCER SCREENING (PAP SMEAR) 06/20/2012 FELIX DPM, KOLE 782.1 RASH AND OTHER NONSPECIFIC SKIN ERUPTION 06/20/2012 FELIX DPM, KOLE V72.31 REINFORCING STEEL MACHINE OPERATOR EXAM, ROUTINE 06/20/2012 FELIX DPM, KOLE V76.10 BREAST CANCER SCREENING 06/20/2012 FELIX DPM, KOLE V76.2 CERVICAL CANCER SCREENING (PAP SMEAR) 06/20/2012 FELIX DPM, KOLE 782.1 RASH AND OTHER NONSPECIFIC SKIN ERUPTION 06/20/2012 FELIX DPM, KOLE V72.31 REINFORCING STEEL MACHINE OPERATOR EXAM, ROUTINE 06/20/2012 FELIX DPM, KOLE V76.10 BREAST CANCER SCREENING 06/20/2012 FELIX DPM, KOLE V76.2 CERVICAL CANCER SCREENING (PAP SMEAR) 06/20/2012 PETRA STOLL MRASHAL S 782.1 RASH AND OTHER NONSPECIFIC SKIN ERUPTION 06/20/2012 SUNNY LAMBERT APRNNDA S V72.31 REINFORCING STEEL MACHINE OPERATOR EXAM, ROUTINE 06/20/2012 PETRA B OPERATOR, MARSHAL S V76.10 BREAST CANCER SCREENING 06/20/2012 PETRA B OPERATOR, MARSHAL S V76.2 CERVICAL CANCER SCREENING (PAP SMEAR) 06/20/2012 PETRA STOLL MARSHAL S 782.1 RASH AND OTHER NONSPECIFIC SKIN ERUPTION 06/20/2012 PETRA STOLL MARSHAL S V72.31 REINFORCING STEEL MACHINE OPERATOR EXAM, ROUTINE 06/20/2012 PETRA STOLL MARSHAL S V76.10 BREAST CANCER SCREENING 06/20/2012 PETRA STOLL MARSHAL S V76.2 CERVICAL CANCER SCREENING (PAP SMEAR) 06/20/2012 FELIX DPM, KOLE 782.1 RASH AND OTHER NONSPECIFIC SKIN ERUPTION 06/20/2012 FELIX DPM, KOLE V72.31 REINFORCING STEEL MACHINE OPERATOR EXAM, ROUTINE 06/20/2012 FELIX DPM, KOLE V76.10 BREAST CANCER SCREENING 06/20/2012 FELIX DPM, KOLE V76.2 CERVICAL CANCER SCREENING (PAP SMEAR) 06/20/2012 OMAIRA CARDENAS APRN 782.1 RASH AND OTHER NONSPECIFIC SKIN ERUPTION 06/20/2012 OMAIRA CARDENAS APRN V72.31 REINFORCING STEEL MACHINE OPERATOR EXAM, ROUTINE 06/20/2012 OMAIRA CARDENAS APRN V76.10 BREAST CANCER SCREENING 06/20/2012 OMAIRA CARDENAS APRN V76.2 CERVICAL CANCER SCREENING (PAP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
[2017-07-23] MEDS ORDERED: ASPIRIN 81 MG CHEW (CHILDREN'S ASA) PO ONE (21:45)
[2017-07-23 21:49] LABS: BASOPHILS % (AUTO) 0 % (0-10); EOSINOPHILS # (AUTO) 0.1 10^3/uL (0.0-0.3); EOSINOPHILS % (AUTO) 1 % (0-10); HEMATOCRIT 46 % (35-52); HEMOGLOBIN 15.6 G/DL (11.5-16.0); LYMPHOCYTES # (AUTO) 3.5 X 10^3 (1.0-4.0); LYMPHOCYTES % (AUTO) 46 % (12-44); MEAN CORPUSCULAR HEMOGLOBIN 29 PG (25-34); MEAN CORPUSCULAR HGB CONC 34 G/DL (32-36); MEAN CORPUSCULAR VOLUME 86 FL (80-99); MEAN PLATELET VOLUME 10.8 FL (7.4-10.4); MONOCYTES # (AUTO) 0.6 X 10^3 (0.0-1.0); MONOCYTES % (AUTO) 7 % (0-12); NEUTROPHILS # (AUTO) 3.5 X 10^3 (1.8-7.8); NEUTROPHILS % (AUTO) 46 % (42-75); PLATELET COUNT 245 10^3/uL (130-400); RED BLOOD COUNT 5.32 10^6/uL (4.35-5.85); RED CELL DISTRIBUTION WIDTH 13.3 % (10.0-14.5); WHITE BLOOD COUNT 7.7 10^3/uL (4.3-11.0)
--- NOTE | 2017-07-23 21:59 | ED Chest Pain ---
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 recently she was treated for the flu. reports persistent cough. Nursing Sepsis Screen: No Definite Risk Source: patient Exam Limitations: no limitations History of Present Illness Date Seen by Provider: Jul 23, 2017 Time Seen by Provider: 21:27 Initial Comments This 41-year-old woman presents to the emergency room with sudden onset of severe left upper chest pain that started while she was driving. Pain started about 10 minutes prior to arrival. She describes the pain as sharp and rated as 10/10. Pain is now rated as 7/10. She reports recently having influenza- like illness. Associated symptoms included shortness of breath, cough, lightheadedness. She denies any nausea, vomiting, diaphoresis. She has history of hypertension and hyperlipidemia and is out of her medications. She denies smoking but she does use vapor nicotine products. Pain does not change with deep inspiration. Review of her chart reveals a cardiac catheterization was performed in [place] [address] Trejo with no significant disease identified. Allergies and Home Medications Allergies Coded Allergies: tomato (Unverified Allergy, Unknown, HIVES, 05/17/14) Uncoded Allergies: STEROIDS (Allergy, Mild, 04/08/14) Home Medications Alprazolam 0.5 Mg Tablet, 0.5 MG PO DAILY PRN for ANXIETY, (Reported) Atorvastatin 20 Mg Tablet, 20 MG PO HS, (Reported) Buspirone HCl 10 Mg Tablet, 20 MG PO EVERY AFTERNOON PRN for ANXIETY, (Reported) TAKES 2 (10MG) TABLETS Buspirone Hcl 10 Mg Tab, 20 MG PO BID, (Reported) TAKES 2 (10MG) TABLETS MORNING AND NIGHT SCHEDULED Cyclobenzaprine HCl 10 Mg Tablet, 10 MG PO Q8H Prescribed by: KELLY GAONA on 09/15/16 0115 Hydrocodone/Acetaminophen 1 Each Tablet, 1-2 EA PO Q4H PRN for MILD TO MODERATE PAIN Prescribed by: RUTH CORTEZ on 09/05/15 1038 Metoprolol Succinate 50 Mg Tab.er.24h, 50 MG PO HS, (Reported) Mirtazapine 15 Mg Tablet, 15 MG PO HS, (Reported) Naproxen 500 Mg Tablet, 500 MG PO BID Prescribed by: KELLY GAONA on 09/15/16 0115 Potassium Citrate 15 Meq Tab, 15 MEQ PO BID, (Reported) Ranitidine HCl 150 Mg Tablet, 150 MG PO BID, (Reported) Spironolactone 25 Mg Tablet, 50 MG PO DAILY, (Reported) TAKES 2 (25MG) TABLETS Venlafaxine HCl 75 Mg Cap.er.24h, 75 MG PO DAILY, (Reported) Review of Systems Constitutional: no symptoms reported EENTM: No Symptoms Reported Respiratory: See HPI Cardiovascular: See HPI Gastrointestinal: No Symptoms Reported Genitourinary: No Symptoms Reported Musculoskeletal: no symptoms reported Skin: no symptoms reported Psychiatric/Neurological: No Symptoms Reported Endocrine: No Symptoms Reported Past Mdquxxz-Efibla-Zcawmh Hx Patient Social History Alcohol Use: Denies Use Recreational Drug Use: No Smoking Status: Current Everyday Smoker Type Used: Cigarettes, Electronic/Vapor 2nd Hand Smoke Exposure: No Recent Foreign Travel: No Contact w/Someone Who Travel: No Recent Infectious Disease Expo: No Recent Hopitalizations: No Immunizations Up To Date Tetanus Booster (TDap): Unknown Date of Pneumonia Vaccine: Mar 31, 2014 Date of Influenza Vaccine: Mar 01, 2017 Seasonal Allergies Seasonal Allergies: No Surgeries History of Surgeries: Yes Surgeries: Abdominal, Bladder Surgery, Cardiac, Gallbladder, Hysterectomy, Oophorectomy (foot, shoulder, knee), Orthopedic Respiratory History of Respiratory Disorde: No Cardiovascular History of Cardiac Disorders: Yes (HEART CATH IN APR 2014, R/T CHEST PAINS RULED ANXIETY ATTACKS) Cardiac Disorders: High Cholesterol, Hypertension Neurological History of Neurological Disord: No Reproductive System : No Hx Reproductive Disorders: No Sexually Transmitted Disease: No HIV/AIDS: No Female Reproductive Disorders: 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 Genitourinary History of Genitourinary Disor: Yes Genitourinary Disorders: Bladder Infection, Kidney Stones Gastrointestinal History of Gastrointestinal Di: Yes (S/P OFELIA) Gastrointestinal Disorders: Gastroesophageal Reflux, Gall Bladder Disease Musculoskeletal History of Musculoskeletal Dis: Yes Musculoskeletal Disorders: Arthritis Endocrine History of Endocrine Disorders: No (OBESITY) HEENT Loss of Vision: Denies Hearing Impairment: Denies Cancer History of Cancer: No Psychosocial History of Psychiatric Problem: Yes (EXTENSIVE PSYCH ISSUES) Behavioral Health Disorders: Sleep Difficulties, Anxiety, PTSD, Bipolar, Depression Integumentary History of Skin or Integumenta: No Blood Transfusions History of Blood Disorders: No Adverse Reaction to a Blood Tr: No Family Medical History Significant Family History: Heart Disease, Stroke Family Medial History: Alcoholism 19 FATHER, Onset:20's - 25 Cardiovascular disease 19 MOTHER, Onset:40's - 50 G8 SISTER, Onset:30's - 40 G8 SISTER, Onset:40's - 50 G8 SISTER, Onset:40's - 50 G8 SISTER, Onset:40's - 50 G8 SISTER, Onset:40's - 50 Gastroenteritis 19 MOTHER, Onset:50's - 60 Hypercholesterolemia 19 MOTHER, Onset:50's - 60 G8 SISTER, Onset:30's - 40 G8 SISTER, Onset:40's - 50 G8 SISTER, Onset:40's - 50 G8 SISTER, Onset:40's - 50 G8 SISTER, Onset:40's - 50 Neoplasm 19 FATHER, Onset:50's - 60 Physical Exam Vital Signs Vital Signs - First Documented 07/23/17 07/23/17 07/24/17 21:29 21:35 02:55 Temp 97.9 Pulse 69 Resp 18 B/P (MAP) 146/104 (118) Pulse Ox 99 O2 Delivery Nasal Cannula O2 Flow Rate 2.0 Capillary Refill : Less Than 3 Seconds General Appearance: WD/WN, Mild Distress HEENT: PERRL/EOMI, Normal ENT Inspection Neck: Normal Inspection Respiratory: Lungs Clear, Normal Breath Sounds, No Accessory Muscle Use, No Respiratory Distress, Other (minimal tenderness to palpation in left upper chest ) Cardiovascular: Regular Rate, Rhythm, No Edema, No Murmur, Normal Peripheral Pulses Gastrointestinal: Normal Bowel Sounds, Non Tender, Soft Extremity: Normal Inspection, Non Tender, No Calf Tenderness, No Pedal Edema, Other (negative Anthony) Neurologic/Psychiatric: Alert, Oriented x3, No Motor/Sensory Deficits, Normal Mood/Affect, 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-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 Norm as Tested Skin: Normal Color, Warm/Dry Progress/Results/Core Measures Results/Orders Lab Results Laboratory Tests Test 07/23/17 21:35 07/24/17 01:10 Range/Units White Blood Count 7.7 4.3-11.0 10^3/uL Red Blood Count 5.32 4.35-5.85 10^6/uL Hemoglobin 15.6 11.5-16.0 G/DL Hematocrit 46 35-52 % Mean Corpuscular Volume 86 80-99 FL Mean Corpuscular Hemoglobin 29 25-34 PG Mean Corpuscular Hemoglobin Concent 34 32-36 G/DL Red Cell Distribution Width 13.3 10.0-14.5 % Platelet Count 245 130-400 10^3/uL Mean Platelet Volume 10.8 H 7.4-10.4 FL Neutrophils (%) (Auto) 46 42-75 % Lymphocytes (%) (Auto) 46 H 12-44 % Monocytes (%) (Auto) 7 0-12 % Eosinophils (%) (Auto) 1 0-10 % Basophils (%) (Auto) 0 0-10 % Neutrophils # (Auto) 3.5 1.8-7.8 X 10^3 Lymphocytes # (Auto) 3.5 1.0-4.0 X 10^3 Monocytes # (Auto) 0.6 0.0-1.0 X 10^3 Eosinophils # (Auto) 0.1 0.0-0.3 10^3/uL Basophils # (Auto) 0.0 0.0-0.1 10^3/uL Prothrombin Time 12.5 12.2-14.7 SEC INR Comment 0.9 0.8-1.4 Activated Partial Thromboplast Time 26 24-35 SEC Sodium Level 137 135-145 MMOL/L Potassium Level 3.6 3.6-5.0 MMOL/L Chloride Level 102 98-107 MMOL/L Carbon Dioxide Level 22 21-32 MMOL/L Anion Gap 13 5-14 MMOL/L Blood Urea Nitrogen 10 7-18 MG/DL Creatinine 0.76 0.60-1.30 MG/DL Estimat Glomerular Filtration Rate > 60 BUN/Creatinine Ratio 13 Glucose Level 80 70-105 MG/DL Calcium Level 9.3 8.5-10.1 MG/DL Magnesium Level 2.1 1.8-2.4 MG/DL Total Bilirubin 0.5 0.1-1.0 MG/DL Aspartate Amino Transf (AST/SGOT) 38 H 5-34 U/L Alanine Aminotransferase (ALT/SGPT) 44 0-55 U/L Alkaline Phosphatase 55 40-136 U/L Myoglobin 34.2 10.0-92.0 NG/ML Troponin I < 0.30 < 0.30 <0.30 NG/ML Total Protein 7.9 6.4-8.2 GM/DL Albumin 4.2 3.2-4.5 GM/DL My Orders Orders - LUIS HOLLEY MD Cbc With Automated Diff (07/23/17 21:34) Magnesium (07/23/17 21:34) Ekg Tracing (07/23/17 21:34) Cardiac Profile 1 (07/23/17 21:34) Comprehensive Metabolic Panel (07/23/17 21:34) Myoglobin Serum (07/23/17 21:34) Protime With Inr (07/23/17 21:34) Partial Thromboplastin Time (07/23/17 21:34) O2 (07/23/17 21:34) Monitor-Rhythm Ecg Trace Only (07/23/17 21:34) Aspirin Chewable Tablet (Baby Aspirin Ch (07/23/17 21:45) Nitroglycerin 0.4 Mg Btl 25's (Nitrostat (07/23/17 21:45) Saline Lock/Iv-Start (07/23/17 21:34) Chest Pa/Lat (2 View) (07/23/17 21:35) Troponin I (07/23/17 22:40) Ketorolac Injection (Toradol Injection) (07/23/17 22:45) Iv Push Private Wealth Advisor Ed (07/23/17 ) Medications Given in ED Vital Signs/I&O Vital Sign - Last 12Hours 07/23/17 07/23/17 07/24/17 21:29 21:35 02:55 Temp 97.9 97.9 Pulse 69 69 Resp 18 18 B/P (MAP) 146/104 (118) 107/76 (118) Pulse Ox 99 O2 Delivery Nasal Cannula Room Air O2 Flow Rate 2.0 Blood Pressure Mean: 118 Progress Note #1: Time: 22:36 Progress Note Patient pain is now down to 2/10 after nitroglycerin 2. Blood pressure is 112 systolic. We will monitor her and perform a 4 hour troponin. Toradol will be given for treatment of pain and her pain. Progress Note #2: Progress Note For her troponin was negative. Patient was feeling well and had almost unnoticeable chest discomfort. She was discharged home for outpatient follow- up. ECG Initial ECG Impression Date: Jul 23, 2017 Initial ECG Impression Time: 21:28 Initial ECG Rate: 66 Initial ECG Rhythm: Normal Sinus Initial ECG Intervals: Normal Initial ECG Impression: Normal Comment Normal sinus rhythm with no ST elevation or depression. No abnormal intervals or axis deviation. Diagnostic Imaging Diagonstic Imaging: Xray Plain Films/CT/US/NM/MRI: chest Comments Chest x-ray viewed by me and report reviewed. See report below: NAME: VIKKI NDIAYE [facility] REC#: [id number] PT STATUS: REG ER : 1975 PHYSICIAN: LUIS HOLLEY MD ADMIT DATE: 07/23/17/ER Signed Date of Exam: 07/23/17 CHEST PA/LAT (2 VIEW) EXAMINATION: Chest (PA and lateral). CLINICAL INDICATION: 42-year-old female, sudden onset left chest pain. Shortness of breath. COMPARISON: 09/15/2016. FINDINGS: Heart size and mediastinal contours are unremarkable. There is no identified pneumothorax. There is no pleural effusion. There is no identified focal airspace consolidation. There are right upper quadrant surgical clips likely relating to prior cholecystectomy. IMPRESSION: No identified acute cardiopulmonary abnormality. Dictated by: Dictated on workstation # [id number] Dict: 07/23/172212 Trans: 07/23/172215 Interpreted by: RHETT CA MD Electronically signed by: RHETT CA MD 07/23/172215 Departure Impression Impression: Primary Impression: Atypical chest pain Disposition: 01 HOME, SELF-CARE Condition: Improved Departure-Patient Inst. Decision time for Depature: 02:46 Referrals: AMARILYS PEÑA DO (PCP) Primary Care Physician DASIA SMITH (Family) Primary Care Physician Patient Instructions: Chest Pain (DC) Add. Discharge Instructions: You may take ibuprofen up to 600 mg every 6 hours as needed for pain. Add Tylenol (acetaminophen) up to 1000 mg every 6 hours as needed for additional pain relief. Return to care if symptoms worsen again. Follow-up with your primary care provider as soon as possible. All discharge instructions reviewed with patient and/or family. Voiced understanding. Copy Copies To 1: RACHELLE TREJO MD FACP [facility] LUIS HOLLEY MD Jul 23, 2017 21:59
[2017-07-23] MEDS: NITROGLYCERIN 0.4 MG SL TABS BTL 25'S SL PRN ×2 (22:03→22:13)
[2017-07-23 22:05] LABS: INR 0.9 (0.8-1.4); PROTHROMBIN TIME PATIENT 12.5 SEC (12.2-14.7)
--- NOTE | 2017-07-23 22:16 | Diagnostic Imaging Report ---
EXAMINATION: Chest (PA and lateral). CLINICAL INDICATION: 42-year-old female, sudden onset left chest pain. Shortness of breath. COMPARISON: 09/15/2016. FINDINGS: Heart size and mediastinal contours are unremarkable. There is no identified pneumothorax. There is no pleural effusion. There is no identified focal airspace consolidation. There are right upper quadrant surgical clips likely relating to prior cholecystectomy. IMPRESSION: No identified acute cardiopulmonary abnormality. Dictated by: Dictated on workstation # [id number]
[2017-07-23 22:19] LABS: MYOGLOBIN SERUM 34.2 NG/ML (10.0-92.0)
[2017-07-23 22:27] LABS: ALANINE AMINOTRANSFERASE 44 U/L (0-55); ALBUMIN 4.2 GM/DL (3.2-4.5); ALKALINE PHOSPHATASE 55 U/L (40-136); BILIRUBIN,TOTAL 0.5 MG/DL (0.1-1.0); BUN/CREATININE RATIO 13; CALCIUM 9.3 MG/DL (8.5-10.1); CARBON DIOXIDE 22 MMOL/L (21-32); CHLORIDE 102 MMOL/L (98-107); CREATININE SERUM 0.76 MG/DL (0.60-1.30); GFR ESTIMATED > 60; GLUCOSE 80 MG/DL (70-105); MAGNESIUM 2.1 MG/DL (1.8-2.4); POTASSIUM 3.6 MMOL/L (3.6-5.0); SODIUM 137 MMOL/L (135-145); TOTAL PROTEIN 7.9 GM/DL (6.4-8.2)
[2017-07-23] MEDS ORDERED: KETOROLAC 30 MG/ML VIAL IVP ONE (22:45)
[2017-07-24 02:55] VITALS: BP 107/76
== END 2017-07-24 02:59 | disposition home or self-care (01) ==
LOC: EDUNIT# 21:24 → ER 21:26
DX: R07.89 Other chest pain (principal); I10 Essential (primary) hypertension; E78.5 Hyperlipidemia, unspecified; K21.9 Gastro-esophageal reflux disease without esophagitis; E66.9 Obesity, unspecified; F43.10 Post-traumatic stress disorder, unspecified; F31.9 Bipolar disorder, unspecified; F41.9 Anxiety disorder, unspecified; F17.210 Nicotine dependence, cigarettes, uncomplicated; Z88.5 Allergy status to narcotic agent; Z82.49 Family history of ischemic heart disease and other diseases of the circulatory system; Z90.710 Acquired absence of both cervix and uterus; Z87.448 Personal history of other diseases of urinary system; Z87.442 Personal history of urinary calculi; Z90.49 Acquired absence of other specified parts of digestive tract
CPT/HCPCS: 36415; 71046; 80053; 83735; 83874; 84484; 85025; 85610; 85730; 93005; 96374

== ENCOUNTER → 2018-04-29 | Outpatient (CLI) | payer BC ==
[~2018-04-29] MED LIST changes: -RANI150T15 PO; +RANI150T46 PO; -SPIR25TA3 PO; +SPIR25TA5 PO
--- NOTE | 2018-04-29 10:29 | Diagnostic Imaging Report ---
INDICATION: Routine screening. COMPARISON: 10/24/2015 and 10/01/2014. TECHNIQUE: 2D and 3D bilateral screening mammography was performed with CAD. FINDINGS: Both breasts are heterogeneously dense, limiting the sensitivity of mammography. There is a circumscribed nodular density in the outer aspect of the left breast approximately 12 cm from the nipple. This may represent a cyst. No other suspicious mass is seen. No malignant appearing microcalcifications are identified. The axillae are unremarkable. IMPRESSION: Circumscribed density in the outer left breast. Further evaluation with ultrasound is recommended. ACR BI-RADS Category 0: Incomplete. (Needs additional imaging evaluation). Result letter will be mailed to the patient. Note: At least 10% of breast cancer is not imaged by mammography. Dictated by: Dictated on workstation # [id number]
== END ==
LOC: RAD 07:56
PROVIDERS: ATTEND Nurse Practitioner Primary Care
DX: Z12.31 Encounter for screening mammogram for malignant neoplasm of breast (principal); R92.8 Other abnormal and inconclusive findings on diagnostic imaging of breast
CPT/HCPCS: 77067

== ENCOUNTER 2018-08-10 21:43 | Emergency (ER) | payer BC ==
[~2018-08-10] VITALS: Ht 167.6 cm; Wt 93.9 kg
[2018-08-10] MEDS ORDERED: PROCHLORPERAZINE 10 MG/2ML INJ (COMPAZINE) IV ONE (22:00)
[2018-08-10] MEDS ORDERED: NS IV 1000 ML 1,000 ML IV SCH (22:00)
[2018-08-10] MEDS ORDERED: PROC5TAB52 PO (22:05)
--- NOTE | 2018-08-10 22:06 | ED Abdominal Pain ---
General Stated Complaint: N/V SINCE 10 A.M. Source of Information: Patient Exam Limitations: No Limitations History of Present Illness Date Seen by Provider: Aug 10, 2018 Time Seen by Provider: 22:03 Initial Comments To ER per private vehicle with reports of nausea vomiting and abdominal cramping since 10 AM this morning. She's been exposed to several people positive for influenza A. No diarrhea. No fever. She took Zofran at home without relief. Timing/Duration: 1-2 Days Severity/Quality: Moderate Location: Generalized Abdomen Radiation: No Radiation Activities at Onset: None Associated Symptoms: Nausea/Vomiting Allergies and Home Medications Allergies Coded Allergies: tomato (Unverified Allergy, Unknown, HIVES, 05/17/14) Uncoded Allergies: STEROIDS (Allergy, Mild, 04/08/14) Home Medications Alprazolam 0.5 Mg Tablet, 0.5 MG PO DAILY PRN for ANXIETY, (Reported) Atorvastatin 20 Mg Tablet, 20 MG PO HS, (Reported) Buspirone HCl 10 Mg Tablet, 20 MG PO EVERY AFTERNOON PRN for ANXIETY, (Reported) TAKES 2 (10MG) TABLETS Buspirone Hcl 10 Mg Tab, 20 MG PO BID, (Reported) TAKES 2 (10MG) TABLETS MORNING AND NIGHT SCHEDULED Cyclobenzaprine HCl 10 Mg Tablet, 10 MG PO Q8H Prescribed by: KELLY GAONA on 09/15/16 011 Hydrocodone/Acetaminophen 1 Each Tablet, 1-2 EA PO Q4H PRN for MILD TO MODERATE PAIN Prescribed by: RUTH CORTEZ on 09/05/15 1038 Metoprolol Succinate 50 Mg Tab.er.24h, 50 MG PO HS, (Reported) Mirtazapine 15 Mg Tablet, 15 MG PO HS, (Reported) Naproxen 500 Mg Tablet, 500 MG PO BID Prescribed by: KELLY GAONA on 09/15/16 0115 Potassium Citrate 15 Meq Tab, 15 MEQ PO BID, (Reported) Ranitidine HCl 150 Mg Tablet, 150 MG PO BID, (Reported) Spironolactone 25 Mg Tablet, 50 MG PO DAILY, (Reported) TAKES 2 (25MG) TABLETS Venlafaxine HCl 75 Mg Cap.er.24h, 75 MG PO DAILY, (Reported) Patient Home Medication List Home Medication List Reviewed: Yes Review of Systems Review of Systems Constitutional: see HPI, chills; No fever; malaise EENTM: No Symptoms Reported Respiratory: No Symptoms Reported Cardiovascular: No Symptoms Reported Gastrointestinal: See HPI, Abdominal Pain; Denies Diarrhea; Nausea, Vomiting Genitourinary: No Symptoms Reported Musculoskeletal: no symptoms reported Skin: no symptoms reported Psychiatric/Neurological: No Symptoms Reported Endocrine: No Symptoms Reported Past Umealyb-Lnteqb-Thfrpn Hx Patient Social History Type Used: Cigarettes, Electronic/Vapor 2nd Hand Smoke Exposure: No Recent Foreign Travel: No Contact w/Someone Who Travel: No Recent Hopitalizations: No Immunizations Up To Date Tetanus Booster (TDap): Unknown Date of Pneumonia Vaccine: Mar 31, 2014 Date of Influenza Vaccine: Mar 01, 2017 Seasonal Allergies Seasonal Allergies: No Past Medical History Surgeries: Yes Abdominal, Bladder Surgery, Cardiac, Gallbladder, Hysterectomy, Oophorectomy, Orthopedic Respiratory: No Cardiac: Yes (HEART CATH IN APR 2014, R/T CHEST PAINS RULED ANXIETY ATTACKS) High Cholesterol, Hypertension Neurological: No Reproductive Disorders: No Female Reproductive Disorders: 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 Sexually Transmitted Disease: No HIV/AIDS: No Genitourinary: Yes Bladder Infection, Kidney Stones Gastrointestinal: Yes (S/P OFELIA) Gastroesophageal Reflux, Gall Bladder Disease Musculoskeletal: Yes Arthritis Endocrine: No (OBESITY) Loss of Vision: Denies Hearing Impairment: Denies Cancer: No Psychosocial: Yes (EXTENSIVE PSYCH ISSUES) Sleep Difficulties, Anxiety, PTSD, Bipolar, Depression Integumentary: No Blood Disorders: No Adverse Reaction/Blood Tranf: No Family Medical History Alcoholism 19 FATHER, Onset:20's - 25 Cardiovascular disease 19 MOTHER, Onset:40's - 50 G8 SISTER, Onset:30's - 40 G8 SISTER, Onset:40's - 50 G8 SISTER, Onset:40's - 50 G8 SISTER, Onset:40's - 50 G8 SISTER, Onset:40's - 50 Gastroenteritis 19 MOTHER, Onset:50's - 60 Hypercholesterolemia 19 MOTHER, Onset:50's - 60 G8 SISTER, Onset:30's - 40 G8 SISTER, Onset:40's - 50 G8 SISTER, Onset:40's - 50 G8 SISTER, Onset:40's - 50 G8 SISTER, Onset:40's - 50 Neoplasm 19 FATHER, Onset:50's - 60 Heart Disease, Stroke Physical Exam Vital Signs Capillary Refill : Height/Weight/BMI Height: 5'6.00" Weight: 231lbs. 0.0oz. [id number]; 41.0 BMI Method:Stated General Appearance: WD/WN, no apparent distress HEENT: PERRL/EOMI, normal ENT inspection Respiratory: no respiratory distress, no accessory muscle use Gastrointestinal: normal bowel sounds, soft, tenderness Extremities: normal range of motion, non-tender Neurologic/Psychiatric: alert, normal mood/affect, oriented x 3 Skin: normal color, cyanosis Progress/Results/Core Measures Results/Orders My Orders Orders - BLAKE KIDD APRN Cbc With Automated Diff (08/10/18 21:56) Comprehensive Metabolic Panel (08/10/18 21:56) Ua Culture If Indicated (08/10/18 21:56) Urine Bedside (08/10/18 21:56) Iv Heplock-Insert (Order) (08/10/18 21:56) Ns Iv 1000 Ml (Sodium Chloride 0.9%) (08/10/18 22:00) Prochlorperazine Injection (Compazine In (08/10/18 22:00) Influenza A And B Antigens (08/10/18 21:57) Departure Impression Primary Impression: Nausea and vomiting Qualified Codes: R11.2 - Nausea with vomiting, unspecified Disposition: 01 HOME, SELF-CARE Condition: Stable Departure-Patient Inst. Decision time for Depature: 22:04 Referrals: [facility] [place] Primary Care Physician [address] APRN (Family) Primary Care Physician Patient Instructions: Nausea and Vomiting, Adult Add. Discharge Instructions: 1. Return to ER for any concerns 2. Follow-up with your doctor next week 3. Scripts Prochlorperazine Maleate (Compazine) 5 Mg Tablet 5 MG PO TID PRN for NAUSEA/VOMITING, #10 TAB Prov: BLAKE KIDD APRN 08/10/18 Work/School Note: Work Release Form Date Seen in the Emergency Department: Aug 10, 2018 Return to Work: Aug 12, 2018 BLAKE KIDD APRN Aug 10, 2018 22:06
[2018-08-10 22:14] LABS: BASOPHILS % (AUTO) 0 % (0-10); EOSINOPHILS % (AUTO) 0 % (0-10); HEMATOCRIT 43 % (35-52); HEMOGLOBIN 14.9 G/DL (11.5-16.0); LYMPHOCYTES # (AUTO) 3.4 X 10^3 (1.0-4.0); LYMPHOCYTES % (AUTO) 27 % (12-44); MEAN CORPUSCULAR HEMOGLOBIN 29 PG (25-34); MEAN CORPUSCULAR HGB CONC 35 G/DL (32-36); MEAN CORPUSCULAR VOLUME 85 FL (80-99); MEAN PLATELET VOLUME 11.2 FL (7.4-10.4); MONOCYTES # (AUTO) 0.9 X 10^3 (0.0-1.0); MONOCYTES % (AUTO) 7 % (0-12); NEUTROPHILS # (AUTO) 8.2 X 10^3 (1.8-7.8); NEUTROPHILS % (AUTO) 65 % (42-75); PLATELET COUNT 284 10^3/uL (130-400); RED CELL DISTRIBUTION WIDTH 13.4 % (10.0-14.5); WHITE BLOOD COUNT 12.6 10^3/uL (4.3-11.0)
[2018-08-10 22:32] LABS: BILIRUBIN,URINE NEGATIVE (NEGATIVE); CLARITY,URINE CLEAR; COLOR,URINE YELLOW; GLUCOSE, URINE (UA) NEGATIVE (NEGATIVE); KETONES,URINE NEGATIVE (NEGATIVE); LEUKOCYTE ESTERASE ,URINE NEGATIVE (NEGATIVE); NITRITE,URINE NEGATIVE (NEGATIVE); PH,URINE 8 (5-9); PROTEIN,URINE NEGATIVE (NEGATIVE); UROBILINOGEN,URINE NORMAL (NORMAL)
[2018-08-10 22:38] LABS: ALANINE AMINOTRANSFERASE 15 U/L (0-55); ALBUMIN 4.3 GM/DL (3.2-4.5); ALKALINE PHOSPHATASE 53 U/L (40-136); BILIRUBIN,TOTAL 0.4 MG/DL (0.1-1.0); BUN/CREATININE RATIO 14; CALCIUM 9.7 MG/DL (8.5-10.1); CARBON DIOXIDE 20 MMOL/L (21-32); CHLORIDE 106 MMOL/L (98-107); CREATININE SERUM 0.71 MG/DL (0.60-1.30); GFR ESTIMATED > 60; GLUCOSE 94 MG/DL (70-105); POTASSIUM 3.7 MMOL/L (3.6-5.0); SODIUM 138 MMOL/L (135-145); TOTAL PROTEIN 7.5 GM/DL (6.4-8.2)
[2018-08-10 22:41] LABS: BACTERIA,URINE FEW /HPF; WBC,URINE RARE /HPF
[2018-08-10 23:03] VITALS: BP 124/68
== END 2018-08-10 23:03 | disposition home or self-care (01) ==
LOC: EDUNIT# 21:43 → ER 21:44
DX: R11.2 Nausea with vomiting, unspecified (principal); E78.00 Pure hypercholesterolemia, unspecified; I10 Essential (primary) hypertension; K21.9 Gastro-esophageal reflux disease without esophagitis; E66.9 Obesity, unspecified; F41.9 Anxiety disorder, unspecified; F43.10 Post-traumatic stress disorder, unspecified; F31.9 Bipolar disorder, unspecified; Z87.19 Personal history of other diseases of the digestive system; Z90.49 Acquired absence of other specified parts of digestive tract; Z82.49 Family history of ischemic heart disease and other diseases of the circulatory system; Z68.41 Body mass index [BMI] 40.0-44.9, adult; Z87.42 Personal history of other diseases of the female genital tract; Z87.448 Personal history of other diseases of urinary system; Z95.9 Presence of cardiac and vascular implant and graft, unspecified; Z88.8 Allergy status to other drugs, medicaments and biological substances; Z98.890 Other specified postprocedural states; Z90.710 Acquired absence of both cervix and uterus
CPT/HCPCS: 36415; 80053; 81000; 84703; 85025; 87804

== ENCOUNTER 2018-09-20 06:11 | Outpatient (CLI) | payer BC ==
[~2018-09-20] VITALS: Ht 167.6 cm; Wt 93.9 kg
[~2018-09-20 06:11] MED LIST changes: +PROC5TAB52 PO
[2018-09-20] MEDS ORDERED: ATOR80TA76 PO (09:51)
[2018-09-20] MEDS ORDERED: AMIT50TA3 PO (09:51)
[2018-09-20] MEDS ORDERED: METF500T8 PO (09:51)
[2018-09-20] MEDS ORDERED: VENL150C98 PO (09:51)
[2018-09-20] MEDS ORDERED: CETI10CA PO (09:51)
== END 2018-09-20 10:04 | disposition home or self-care (01) ==
LOC: PREOP 06:11
PROVIDERS: ATTEND Surgery
DX: Z01.818 Encounter for other preprocedural examination (principal)

== ENCOUNTER 2018-09-21 05:48 | Day surgery (SDC) | payer BC ==
[2018-09-21] VITALS (10 sets, daily range): BP systolic 100–152; BP diastolic 58–87
[~2018-09-21] VITALS: Ht 167.6 cm; Wt 93.9 kg
[~2018-09-21 05:48] MED LIST changes: +AMIT50TA3 PO; +ATOR80TA76 PO; +CETI10CA PO; +METF500T8 PO; +VENL150C98 PO
--- OUTSIDE RECORDS SUMMARY | 2018-09-21 05:53 | XMS REPORT ---
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 Name Role Phone [address] Unavailable PROBLEMS Type Condition ICD9-CM Code BSI31-IZ Code Onset Dates Condition Status SNOMED Code Problem Bipolar depression F31.30 Active 31719628 Problem Atherosclerosis of coronary artery of [place] heart without angina pectoris, unspecified vessel or lesion type I25.10 Active 963931816 Problem Pure hypercholesterolemia E78.00 Active 328059698 Problem Bladder spasms N32.89 Active 139583059 Problem Menopausal symptoms N95.1 Active 37310336 Problem Lumbago with sciatica, right side M54.41 Active 689111043 Problem Lumbago with sciatica, left side M54.42 Active 421309225 Problem Gastroesophageal reflux disease without esophagitis K21.9 Active 603988106 Problem Pain in thoracic spine M54.6 Active [id number] ALLERGIES No Information ENCOUNTERS Encounter Location Date Diagnosis [facility] [id number] [place] [address] 84374- 6738 Apr, Left breast mass N63.20 [facility] [id number] [place] [address] 36783- 8253 Mar, [facility] [id number] [place] [address] 00048- 2059 Mar, Encounter for immunization Z23 ; Screening for breast cancer Z12.31 ; Screening for lipoid disorders Z13.220 ; Screening for diabetes mellitus Z13.1 ; Screening for thyroid disorder Z13.29 and Viral warts, unspecified type B07.9 [facility] [id number] [place] [address] 09486 -1680 Mar, Gastroenteritis K52.9 [facility] [id number] [place] [address] 65865 -7973 Dec, Rash and nonspecific skin eruption R21 [facility] [place] [address] [address] -4610 Jul, Influenza-like illness R69 [facility] [address] [address] Mar, Acute recurrent maxillary sinusitis J01.01 [place] [address] 58128- 0893 Feb, Pelvic pain R10.2 [facility] [address] [address] -8882 Feb, Acute recurrent maxillary sinusitis J01.01 [place] [address] 90344- 2366 Feb, Cyst of left ovary N83.202 [place] [address] 09858- 1543 Feb, LLQ pain R10.32 [place] [address] 50115- 9705 Feb, Left lower quadrant pain R10.32 [facility] [place] [address] 89969 -6801 Jan, [facility] [place] [address] 27525 -8776 Jan, Bladder spasms N32.89 [place] [address] 81036- 4142 Nov, Gastroesophageal reflux disease without esophagitis K21.9 ; HTN (hypertension) I10 ; Bipolar depression F31.30 ; Atherosclerosis of coronary artery of [place] heart without angina pectoris, unspecified vessel or lesion type I25.10 ; Acquired hypothyroidism E03.9 and Menopausal symptoms N95.1 [place] [address] [place] [address]- 3183 Oct, Pain in thoracic spine M54.6 ; Bipolar depression F31.30 ; HTN (hypertension) I10 ; Atherosclerosis of coronary artery of [place] heart without angina pectoris, unspecified vessel or lesion type I25.10 ; Acquired hypothyroidism E03.9 and Gastroesophageal reflux disease without esophagitis K21.9 [place] [address] 69834- 9748 Oct, Pain in thoracic spine M54.6 [facility] [place] [address] 08086 -4941 September, Sore throat J02.9 ; Dysuria R30.0 ; Strep throat J02.0 and Acute cystitis with hematuria N30.01 [place] [address] 10064- 8359 September, Cervicalgia M54.2 and Pain in thoracic spine M54.6 [place] [address] 33538- 3016 Aug, [place] [address] 07811- 3154 Aug, High risk bisexual behavior Z72.53 and Acute vaginitis N76.0 [place] [address] 01132- 1310 May, Internal hemorrhoids K64.8 ; Lower abdominal pain R10.30 ; HTN (hypertension) I10 ; Bipolar depression F31.30 ; Hypercholesteremia E78.0 and Other hyperlipidemia E78.4 [place] [address] 27850- 4228 Apr, Hypercholesteremia E78.0 [facility] [address] 25[address] -8226 Apr, Dysuria R30.0 ; Lumbago with sciatica, left side M54.42 and Lumbago with sciatica, right side M54.41 [place] [id number] [place] [address] 23569- 6717 Apr, HTN (hypertension) I10 ; Hypercholesteremia E78.0 ; Bipolar depression F31.30 ; Atherosclerosis of coronary artery of [place] heart without angina pectoris, unspecified vessel or lesion type I25.10 ; Wellness examination Z00.00 ; Other hyperlipidemia E78.4 ; Acquired hypothyroidism E03.9 and Other viral warts B07.8 [facility] [address] 7[address] -2581 Feb, Encounter for immunization Z23 [facility] IN [address] [address] 27 Jan, 2016 Bronchitis J40 and Sore throat J02.9 [facility] [address] 89489 -5881 07 Jan, 2016 URI, acute J06.[address] 10315- 6793 September, Other hyperlipidemia E78.[address] 70230- 3060 September, HTN (hypertension) I10 ; Hypercholesteremia E78.0 ; Bipolar depression F31.30 ; Atherosclerosis of coronary artery of [place] heart without angina pectoris, unspecified vessel or lesion type I25.10 ; Acute recurrent maxillary sinusitis J01.01 and Wellness examination Z00.00 [facility] IN [address] [address]2727 Aug, Acute allergic serous otitis media of both ears H65.113 and Acute sinusitis J01.[address] 33942- 5203 Jul, Encounter for PPD test Z11.1 [facility] [address] 35546 -9176 May, Acute bacterial sinusitis J01.90 [place] [id number] [place] [address] 09172- 3458 May, [facility] [address] 96739- 1428 Apr, [facility] [address] 41237- 3474 Apr, RUQ pain R10.11 and Exposure to strep throat Z20.818 [facility] [address] 30711- 3578 Mar, Right upper quadrant abdominal pain R10.11 [facility] [address] 07032- 9660 Mar, Encounter for immunization Z23 [place] [address] 25313- 8679 Mar, Dysuria R30.0 [facility] [address] 64472- 3202 Feb, [facility] [address] 32137- 6494 Feb, Right upper quadrant pain R10.11 and Hematuria R31.9 [place] [id number] [place] [address] 79590- 4475 Jan, RUQ pain 789.01 and Obesity 278.00 [facility] [address] 07800- 0597 Dec, [facility] [id number] [place] [address] 51570- 5311 Dec, [facility] [address] 19921- 1386 Nov, Edema 782.3 and Gastritis 535.50 [facility] [id number] [place] [address] 46716- 6174 Nov, Hypertension 401.9 [facility] [address] [place] [address]- 7556 Nov, [facility] [id number] [place] [address] 53389- 7734 Nov, Edema 782.3 [facility] [id number] [place] [address] 77514- 0621 Nov, [facility] [id number] [place] [address] 38024- 0868 Nov, Hypertension 401.9 ; Hyperlipemia 272.4 ; Edema of lower extremity 782.3 and CAD (coronary artery disease) 414.00 [facility] [id number] [place] [address] 95351- 0878 Oct, Edema 782.3 [facility] [id number] [place] [address] 44023- 1124 Oct, [facility] [id number] [place] [address] 85225- 1323 Oct, Urinary incontinence 788.30 ; Weight gain due to medication 783.9 ; Status post foot surgery V45.89 and Bronchitis [address] [place] [id number] [place] [address] 53679- 7263 September, Routine physical examination V70.0 [place] [id number] [place] [address] 33521- 2956 Aug, Breast cancer screening V76.10 [facility] [id number] [place] [address] 38597- 3138 Aug, [facility] [id number] [place] [address] 09992- 1246 Aug, [facility] [id number] [place] [address] 70996- 6464 Jul, [facility] [id number] [place] [address] 09369- 4248 Jul, [facility] [id number] [place] [address] 22172- 0372 Jul, [facility] [place] [facility] [address] [id number] [place] [address]- 3111 Jul, [facility] [place] [facility] [address] [id number] [place] [address]- 3935 Jul, [facility] [place] [facility] [address] [id number] [place] [address]- 2676 Jul, [facility] [place] [facility] [address] [id number] [place] [address]- 9734 Jul, [facility] [place] [facility] [address] [id number] [place] [address]- 8896 Jul, [facility] [place] [facility] [address] [id number] [place] [address]- 0535 May, [facility] [place] [facility] [address] [facility] [id number] [place] [address]- 8466 May, [facility] [place] [facility] [address] [id number] [place] [address]- 4984 May, [facility] [place] [facility] [address] [facility] [id number] [place] [address]- 1299 May, [facility] [place] [facility] [address] [facility] [id number] [place] [address]- 0252 Apr, [facility] [place] [facility] [address] [id number] [place] [address]- 5361 Apr, [facility] [place] [facility] [address] [id number] [place] [address]- 2334 Apr, [facility] [place] [facility] [address] [id number] [place] [address]- 1887 Apr, [facility] [place] [facility] [address] [id number] [place] [address]- 5715 Apr, [facility] [place] [facility] [address] [id number] [place] [address]- 7804 Apr, [facility] [place] [facility] [address] [id number] [place] [address]- 3587 Mar, [facility] [place] [facility] [address] [id number] [place] [address]- 1353 Mar, [facility] [place] [facility] [address] [id number] [place] [address]- 6424 Mar, [facility] [place] [facility] [address] [id number] [place] [address]- 5856 Mar, [facility] [place] [facility] [address] [id number] [place] [address]- 9690 Mar, [facility] [place] [facility] [address] [id number] [place] [address]- 0225 Mar, [facility] [place] [facility] [address] [id number] [place] [address]- 8519 Feb, [facility] [place] [facility] [address] [id number] [place] [address]- 8039 Feb, [facility] [place] [facility] [address] [id number] [place] [address]- 2199 Feb, [facility] [place] [facility] [address] [id number] [place] [address]- 9037 Feb, [facility] [place] [facility] [address] [id number] [place] [address]- 0866 Feb, [facility] [place] [facility] [address] [id number] [place] [address]- 3884 Feb, [facility] [place] [facility] [address] [id number] [place] [address]- 4997 Jan, [facility] [place] [facility] [address] [id number] [place] [address]- 6712 Jan, [facility] [place] [facility] [address] [id number] [place] [address]- 5398 12 Jan, 2014 [facility] [place] [facility] [address] [id number] [place] [address]- 1200 Jan, [facility] [place] [facility] [address] [id number] [place] [address]- 6442 Jan, [facility] [place] [facility] [address] [id number] [place] [address]- 9109 Jan, [facility] [place] [facility] [address] [id number] [place] [address]- 7266 Dec, [facility] [place] [facility] [address] [id number] [place] [address]- 5727 Dec, [facility] [place] [facility] [address] [id number] [place] [address]- 7940 Dec, [facility] [place] [facility] [address] [id number] [place] [address]- 5641 Dec, [facility] [place] [facility] [address] [id number] [place] [address]- 6532 Dec, [facility] [place] [facility] [address] [id number] [place] [address]- 3594 Dec, [facility] [place] [facility] [address] [id number] [place] [address]- 0486 Dec, [facility] [place] [facility] [address] [id number] [place] [address]- 7213 Dec, [facility] [place] [facility] [address] [id number] [place] [address]- 6173 Nov, [facility] [place] [facility] [address] [id number] [place] [address]- 6173 Nov, [facility] [place] [facility] [address] [id number] [place] [address]- 3621 Nov, [facility] [place] [facility] [address] [id number] [place] [address]- 1093 Nov, [facility] [place] [facility] [address] [id number] [place] [address]- 9235 Nov, [facility] [place] [facility] [address] [id number] [place] [address]- 4391 Nov, [facility] [place] [facility] [address] [id number] [place] [address]- 9061 Oct, [facility] [place] [facility] [address] [id number] [place] [address]- 1049 Oct, [facility] [place] [facility] [address] [id number] [place] [address]- 6587 Oct, [facility] [place] [facility] [address] [id number] [place] [address]- 6936 Oct, [facility] [place] [facility] [address] [id number] [place] [address]- 7446 Oct, [facility] [place] [facility] [address] [id number] [place] [address]- 3338 Oct, [facility] [place] [facility] [address] [id number] [place] [address]- 0665 September, [facility] [place] [facility] [address] [id number] [place] [address]- 8579 September, [facility] [place] [facility] [address] [id number] [place] [address]- 9559 Aug, [facility] [place] [facility] [address] [id number] [place] [address]- 2439 Aug, [facility] [place] [facility] [address] [id number] [place] [address]- 3999 Jul, [facility] [place] [facility] [address] [id number] [place] [address]- 4904 Jul, [facility] [place] [facility] [address] [id number] [place] [address]- 5305 Jul, [facility] [place] [facility] [address] [id number] [place] [address]- 2176 Jul, [facility] [place] [facility] [address] [id number] [place] [address]- 1347 Jul, [facility] [place] [facility] [address] [id number] [place] [address]- 0787 Jul, [facility] [place] [facility] [address] [id number] [place] [address]- 7026 Jul, [facility] [place] [facility] [address] [id number] [place] 6486 Jul, [facility] [place] [facility] [address] [id number] [place] [address]- 1214 May, [facility] [place] [facility] [address] [id number] [place] [address]- 3739 May, [facility] [place] [facility] [address] [id number] [place] [address]- 6241 Apr, [facility] [place] [facility] [address] [id number] [place] [address]- 3166 Apr, [facility] [place] [facility] [address] [id number] [place] [address]- 0683 Apr, [facility] [place] [facility] [address] [id number] [place] [address]- 1261 Apr, [facility] [place] [facility] [address] [id number] [place] [address]- 4467 Apr, [facility] [place] [facility] [address] [id number] [place] [address]- 4661 Apr, [facility] [place] [facility] [address] [id number] [place] [address]- 1048 Apr, [facility] [place] [facility] [address] [id number] [place] [address]- 1879 Apr, [facility] [place] [facility] [address] [id number] [place] [address]- 3669 Apr, [facility] [place] [facility] [address] [id number] [place] [address]- 4681 Mar, [facility] [place] [facility] [address] [id number] [place] [address]- 9020 Mar, [facility] [address] [id number] [place] [address]- 0948 Mar, [facility] [address] [id number] [place] [address]- 6502 Mar, [facility] [address] [id number] [place] [address]- 3506 Feb, [facility] [address] [id number] [place] [address]- 3282 Feb, [facility] [address] [id number] [place] [address]- 6470 Jan, [facility] [address] [id number] [place] [address]- 7761 Dec, [facility] [address] [id number] [place] [address]- 3150 Dec, [facility] [address] [id number] [place] [address]- 1718 Dec, [facility] [address] [id number] [place] [address]- 5109 Nov, [facility] [address] [id number] [place] [address]- 1567 Nov, [facility] [address] [id number] [place] [address]- 1087 Nov, [facility] [address] [id number] [place] [address]- 3679 Oct, [facility] [place] [facility] [address] [id number] [place] [address]- 2470 Aug, [facility] [place] [facility] [address] [id number] [place] [address]- 1486 Jul, [facility] [place] [facility] [address] [id number] [place] [address]- 5170 Jul, [facility] [place] [facility] [address] [id number] [place] [address]- 8429 14 Jul, 2012 [facility] [place] [facility] [address] [id number] [place] [address]- 8016 Jul, [facility] [place] [facility] [address] [id number] [place] [address]- 1328 Jul, [facility] [place] [facility] [address] [id number] [place] [address]- 3056 Jul, [facility] [place] [facility] [address] [id number] [place] [address]- 9433 Jul, [facility] [place] [facility] [address] [id number] [place] [address]- 2874 14 Jul, 2012 [facility] [place] [facility] [address] [id number] [place] [address]- 3426 Jul, [facility] [place] [facility] [address] [id number] [place] [address]- 4916 Jul, [facility] [place] [facility] [address] [id number] [place] [address]- 9156 Jul, [facility] [place] [facility] [address] [id number] [place] [address]- 7963 Jul, [facility] [place] [facility] [address] [id number] [place] [address]- 5772 Jul, [facility] [place] [facility] [address] [id number] [place] [address]- 3321 May, [facility] [place] [facility] [address] [id number] [place] [address]- 9180 May, [facility] [place] [facility] [address] [id number] [place] [address]- 2566 May, [facility] [place] [facility] [address] [id number] [place] [address]- 3128 May, [facility] [place] [facility] [address] [id number] [place] [address]- 7796 May, [facility] [address] [id number] [place] [address]- 3886 May, [facility] [address] [id number] [place] [address]- 3436 May, [facility] [address] [id number] [place] [address]- 9348 May, [facility] [address] [id number] [place] [address]- 2922 Apr, [facility] [address] [id number] [place] [address]- 4644 Apr, [facility] [address] [id number] [place] [address]- 0639 Apr, [facility] [address] [id number] [place] [address]- 3076 Apr, [facility] [address] [id number] [place] [address]- 3308 Apr, [facility] [address] [id number] [place] [address]- 5218 Apr, [facility] [address] [id number] [place] [address]- 2725 Apr, [facility] [address] [id number] [place] [address]- 2466 Apr, [facility] [address] [id number] [place] [address] Apr, [facility] [address] [id number] [place] [address] Apr, [facility] [address] [id number] [place] [address] Apr, [facility] [address] [id number] [place] [address] Mar, [facility] [address] [facility] [place] [id number], [place] [address] Mar, [facility] [address] [facility] [place] [id number], [place] [address] Mar, [facility] [address] [facility] [place] [id number], [place] [address] Mar, [facility] [address] [facility] [place] [id number], [place] [address] Feb, [facility] [address] [facility] [place] [id number], [place] [address] Feb, IMMUNIZATIONS No Known Immunizations SOCIAL HISTORY Never Assessed REASON FOR VISIT PLAN OF CARE Activity Details Pending Test Mammogram Dx, Left VITAL SIGNS MEDICATIONS Unknown Medications RESULTS No Results PROCEDURES No Known procedures INSTRUCTIONS MEDICATIONS ADMINISTERED No Known Medications MEDICAL (GENERAL) HISTORY Type Description Date Medical [...]
--- OUTSIDE RECORDS SUMMARY | 2018-09-21 05:54 | XMS REPORT ---
Author Author [address] Organization [facility] Address [address] [place] [address] Care Team Providers Care Security Director Name Role Phone [address] Unavailable PROBLEMS Type Condition ICD9-CM Code [id number] Code Onset Dates Condition Status SNOMED Code Problem Bipolar depression F31.30 Active 25695913 Problem Atherosclerosis of coronary artery of north fork heart without angina pectoris, unspecified vessel or lesion type I25.10 Active 539553922 Problem Pure hypercholesterolemia E78.00 Active 261467988 Problem Bladder spasms N32.89 Active 115192124 Problem Menopausal symptoms N95.1 Active 20896342 Problem Lumbago with sciatica, right side M54.41 Active 860711507 Problem Lumbago with sciatica, left side M54.42 Active 549673894 Problem Gastroesophageal reflux disease without esophagitis K21.9 Active 336783199 Problem Pain in thoracic spine M54.6 Active [id number] ALLERGIES No Information ENCOUNTERS Encounter Location Date Diagnosis [facility] [address] [address] Mar, [facility] [address] [address] Mar, Encounter for immunization Z23 ; Screening for breast cancer Z12.31 ; Screening for lipoid disorders Z13.220 ; Screening for diabetes mellitus Z13.1 ; Screening for thyroid disorder Z13.29 and Viral warts, unspecified type B07.9 [facility] [address] [address] Mar, Gastroenteritis K52.9 [facility] [id number] [place] [address] -[address]10 Dec, Rash and nonspecific skin eruption R21 [facility] [id number] [place] [address] 64[address] -[address]996 Jul, Influenza-like illness R69 [facility] [id number] [place] [address]00 -[address]137 Mar, Acute recurrent maxillary sinusitis J01.01 [place] [id number] [place] [address] 84486- 0939 Feb, Pelvic pain R10.2 [facility] [address] [address] Feb, Acute recurrent maxillary sinusitis J01.01 [place] [address] [address]- 1572 Feb, Cyst of left ovary N83.202 [place] [address] 69[address]- 0398 Feb, LLQ pain R10.32 [place] [address] [address]31- 2863 Feb, Left lower quadrant pain R10.32 [facility] [address] [address] Jan, [facility] [place] [id number] [place] [address]2399 Jan, Bladder spasms N32.89 [place] [address] [address] Nov, Gastroesophageal reflux disease without esophagitis K21.9 ; HTN (hypertension) I10 ; Bipolar depression F31.30 ; Atherosclerosis of coronary artery of north fork heart without angina pectoris, unspecified vessel or lesion type I25.10 ; Acquired hypothyroidism E03.9 and Menopausal symptoms N95.1 [place] [id number] [place] [address] 98006- 6906 Oct, Pain in thoracic spine M54.6 ; Bipolar depression F31.30 ; HTN (hypertension) I10 ; Atherosclerosis of coronary artery of north fork heart without angina pectoris, unspecified vessel or lesion type I25.10 ; Acquired hypothyroidism E03.9 and Gastroesophageal reflux disease without esophagitis K21.9 [place] [id number] [place] [address] 49216- 6755 Oct, Pain in thoracic spine M54.6 [facility] [id number] [place] [address] 56548 [address] September, Sore throat J02.9 ; Dysuria R30.0 ; Strep throat J02.0 and Acute cystitis with hematuria N30.01 [place] [address] 5[address]45- 9697 September, Cervicalgia M54.2 and Pain in thoracic spine M54.6 [place] [address] 73393- 7214 Aug, [place] [address] 13737- 6567 Aug, High risk bisexual behavior Z72.53 and Acute vaginitis N76.0 [place] [address] 72978- 8670 May, Internal hemorrhoids K64.8 ; Lower abdominal pain R10.30 ; HTN (hypertension) I10 ; Bipolar depression F31.30 ; Hypercholesteremia E78.0 and Other hyperlipidemia E78.4 [place] [id number] [place] [address] 88337- 5305 Apr, Hypercholesteremia E78.0 [facility] [id number] [place] [address] 58844 -1156 Apr, Dysuria R30.0 ; Lumbago with sciatica, left side M54.42 and Lumbago with sciatica, right side M54.41 [place] [id number] [place] [address] 97585- 4161 Apr, HTN (hypertension) I10 ; Hypercholesteremia E78.0 ; Bipolar depression F31.30 ; Atherosclerosis of coronary artery of north fork heart without angina pectoris, unspecified vessel or lesion type I25.10 ; Wellness examination Z00.00 ; Other hyperlipidemia E78.4 ; Acquired hypothyroidism E03.9 and Other viral warts B07.8 [facility] [id number] [place] [address] 28 Feb, 2016 Encounter for immunization Z23 [facility] [place] [address] [address] 27 Jan, 2016 Bronchitis J40 and Sore throat J02.9 [facility] [place] [address] [address] 07 Jan, 2016 URI, acute J06.9 [place] [address] 41629- 2255 September, Other hyperlipidemia E78.4 [place] [address] 05173- 5290 September, HTN (hypertension) I10 ; Hypercholesteremia E78.0 ; Bipolar depression F31.30 ; Atherosclerosis of coronary artery of north fork heart without angina pectoris, unspecified vessel or lesion type I25.10 ; Acute recurrent maxillary sinusitis J01.01 and Wellness examination Z00.00 [facility] [place] [address] [address] Aug, Acute allergic serous otitis media of both ears H65.113 and Acute sinusitis J01.90 [place] [address] [address]64- 9328 Jul, Encounter for PPD test Z11.1 [facility] [place] [address] [address] May, Acute bacterial sinusitis J01.90 [place] [address] 09639- 1471 May, [place] [address] 21491- 30[address] Apr, [facility] [address] [address]- 4967 Apr, RUQ pain R10.11 and Exposure to strep throat Z20.818 [facility] [address] [address]- 0695 Mar, Right upper quadrant abdominal pain R10.11 [facility] [address] 20301- 4923 Mar, Encounter for immunization Z23 [place] [address] 98715- 0866 Mar, Dysuria R30.0 [facility] [address] 36651- 8891 Feb, [facility] [address] 92371- 3964 Feb, Right upper quadrant pain R10.11 and Hematuria R31.9 [facility] [address] 44979- 8424 Jan, RUQ pain 789.01 and Obesity 278.00 [facility] [address] [address]25- 9906 Dec, [facility] [address] 16098- 1747 Dec, [facility] [address] 0[address]- 2007 Nov, Edema 782.3 and Gastritis 535.50 [facility] [address] 39277- 9840 Nov, Hypertension 401.9 [facility] [address] 47007- 1016 Nov, [facility] [address] 25422- 8258 Nov, Edema 782.3 [facility] [id number] [place] [address] 89143- 3465 Nov, [facility] [id number] [place] [address] 93668- 4794 Nov, Hypertension 401.9 ; Hyperlipemia 272.4 ; Edema of lower extremity 782.3 and CAD (coronary artery disease) 414.00 [place] [id number] [place] [address] 54883- 4488 Oct, Edema 782.3 [place] [id number] [place] [address] 12982- 4248 Oct, [place] [id number] [place] [address] 70349- 8969 Oct, Urinary incontinence 788.30 ; Weight gain due to medication 783.9 ; Status post foot surgery V45.89 and Bronchitis [address] [place] [id number] [place] [address] 04039- 2260 September, Routine physical examination V70.0 [place] [id number] [place] [address] 78574- 6207 Aug, Breast cancer screening V76.10 [place] [id number] [place] [address] 97268- 1517 Aug, [place] [id number] [place] [address] 21535- 8359 Aug, [place] [id number] [place] [address] 46542- 2929 Jul, [place] [id number] [place] [address] 93481- 4446 Jul, [place] [id number] [place] [address] 18363- 0006 Jul, [place] [id number] [place] [address] 02452- 0249 Jul, [facility] [place] [facility] [address] [id number] [place] [address]- 1745 Jul, [facility] [place] [facility] [address] [id number] [place] 8946 Jul, [facility] [place] [facility] [address] [id number] [place] [address]- 3521 Jul, [facility] [place] [facility] [address] [id number] [place] [address]- 6205 Jul, [facility] [place] [facility] [address] [id number] [place] [address]- 6931 May, [facility] [place] [facility] [address] [id number] [place] [address]- 5477 May, [facility] [place] [facility] [address] [id number] [place] [address]- 0102 May, [facility] [place] [facility] [address] [id number] [place] [address]- 5030 May, [facility] [place] [facility] [address] [id number] [place] [address]- 0086 Apr, [facility] [place] [facility] [address] [id number] [place] [address]- 7874 Apr, [facility] [place] [facility] [address] [id number], [place] [address]- 9809 Apr, [facility] [place] [facility] [address] [id number], [place] [address]- 6832 Apr, [facility] [place] [facility] [address] [id number] [place] [address]- 8187 Apr, [facility] [place] [facility] [address] [id number] [place] [address]28 Apr, [facility] [place] [facility] [address] [id number] [place] [address]- 1667 Mar, [facility] [place] [facility] [address] [id number] [place] [address]- 9858 Mar, [facility] [place] [facility] [address] [id number] [place] [address]- 7429 Mar, [facility] [place] [facility] [address] [id number] [place] [address]- 6366 Mar, [facility] [place] [facility] [address] [id number] [place] [address]- 5361 Mar, [facility] [place] [facility] [address] [id number] [place] [address]- 5016 Mar, [facility] [place] [facility] [address] [id number] [place] [address]- 4534 Feb, [facility] [place] [facility] [address] [id number] [place] [address]- 5498 Feb, [facility] [place] [facility] [address] [id number] [place] [address]- 1396 Feb, [facility] [place] [facility] [address] [id number] [place] [address]- 8286 Feb, [facility] [place] [facility] [address] [id number] [place] [address]- 4633 Feb, [facility] [place] [facility] [address] [id number] [place] [address]- 9073 Feb, [facility] [place] [facility] [address] [id number] [place] [address]- 7399 Jan, [facility] [place] [facility] [address] [id number] [place] [address]- 8225 19 Jan, 2014 [facility] [place] [facility] [address] [id number] [place] [address]- 5762 12 Jan, 2014 [facility] [place] [facility] [address] [id number] [place] [address]- 9163 12 Jan, 2014 [facility] [place] [facility] [address] [id number] [place] [address]- 8642 Jan, [facility] [place] [facility] [address] [id number] [place] [address]- 1852 Jan, [facility] [place] [facility] [address] [id number] [place] [address]- 1514 Dec, [facility] [place] [facility] [address] [id number] [place] [address]- 1637 Dec, [facility] [place] [facility] [address] [id number] [place] [address]- 3575 Dec, [facility] [place] [facility] [address] [id number] [place] [address]- 9787 Dec, [facility] [place] [facility] [address] [id number] [place] [address]- 1965 Dec, [facility] [place] [facility] [address] [id number] [place] [address]- 3403 Dec, [facility] [place] [facility] [address] [id number] [place] [address]- 0687 Dec, [facility] [place] [facility] [address] [id number] [place] [address]- 9388 Dec, [facility] [place] [facility] [address] [id number] [place] [address]- 4746 Nov, [facility] [place] [facility] [address] [id number] [place] [address]- 9684 Nov, [facility] [place] [facility] [address] [id number] [place] [address]- 6452 Nov, [facility] [place] [facility] [address] [id number] [place] [address]- 2458 Nov, [facility] [place] [facility] [address] [id number] [place] [address]- 7631 Nov, [facility] [place] [facility] [address] [id number] [place] [address]- 4978 Nov, [facility] [place] [facility] [address] [id number] [place] [address]- 5741 Oct, [facility] [place] [facility] [address] [id number] [place] [address]- 0007 Oct, [facility] [place] [facility] [address] [id number] [place] [address]- 6014 Oct, [facility] [place] [facility] [address] [id number] [place] [address]- 4711 Oct, [facility] [place] [facility] [address] [id number] [place] [address]- 4966 Oct, [facility] [place] [facility] [address] [id number] [place] [address]- 6432 Oct, [facility] [place] [facility] [address] [id number] [place] [address]- 8170 September, [facility] [place] [facility] [address] [id number] [place] [address]- 7413 September, [facility] [place] [facility] [address] [id number] [place] [address]- 5683 Aug, [facility] [place] [facility] [address] [id number] [place] [address]- 5942 Aug, [facility] [place] [facility] [address] [id number] [place] [address]- 6146 Jul, [facility] [place] [facility] [address] [id number] [place] [address]- 4684 Jul, [facility] [place] [facility] [address] [id number] [place] [address]- 9590 Jul, [facility] [place] [facility] [address] [id number] [place] [address]- 2638 Jul, [facility] [place] [facility] [address] [id number] [place] [address]- 6946 Jul, [facility] [place] [facility] [address] [id number] [place] [address]- 3949 Jul, [facility] [place] [facility] [address] [id number] [place] [address]- 6679 Jul, [facility] [place] [facility] [address] [id number] [place] [address]- 8006 Jul, [facility] [place] [facility] [address] [id number] [place] [address]- 7596 May, [facility] [place] [facility] [address] [id number] [place] [address]- 7178 May, [facility] [place] [facility] [address] [id number] [place] [address]- 2382 Apr, [facility] [place] [facility] [address] [id number] [place] [address]- 7949 Apr, [facility] [place] [facility] [address] [id number] [place] [address]- 4813 Apr, [facility] [place] [facility] [address] [id number] [place] [address]- 7965 Apr, [facility] [place] [facility] [address] [id number] [place] [address]- 0619 Apr, [facility] [place] [facility] [address] [id number] [place] [address]- 2535 Apr, [facility] [place] [facility] [address] [id number] [place] [address]- 4860 Apr, [facility] [place] [facility] [address] [id number], [place] [address]- 1555 Apr, [facility] [place] [facility] [address] [id number] [place] [address]- 4342 Apr, [facility] [place] [facility] [address] [id number] [place] [address]- 5425 Mar, [facility] [place] [facility] [address] [id number] [place] [address]- 0300 Mar, [facility] [place] [facility] [address] [id number], [place] [address]- 0645 Mar, [facility] [address] [id number] [place] [address]- 2832 Mar, [facility] [place] [facility] [address] [id number] [place] [address]- 7034 Feb, [facility] [place] [facility] [address] [id number] [place] [address]- 7471 Feb, [facility] [place] [facility] [address] [id number] [place] [address]- 4220 Jan, [facility] [place] [facility] [address] [id number] [place] [address]- 5860 Dec, [facility] [place] [facility] [address] [id number] [place] [address]- 0178 Dec, [facility] [place] [facility] [address] [id number] [place] [address]- 7090 Dec, [facility] [place] [facility] [address] [id number] [place] [address]- 0053 Nov, [facility] [place] [facility] [address] [id number] [place] [address]- 1574 Nov, [facility] [place] [facility] [address] [id number] [place] [address]- 9103 Nov, [facility] [place] [facility] [address] [id number] [place] [address]- 5149 Oct, [facility] [place] [facility] [address] [id number] [place] [address]- 5785 Aug, [facility] [place] [facility] [address] [id number] [place] [address]- 8701 Jul, [facility] [place] [facility] [address] [id number] [place] [address]- 7914 Jul, [facility] [place] [facility] [address] [id number] [place] [address]- 3678 Jul, [facility] [place] [facility] [address] [id number] [place] [address]- 8249 Jul, [facility] [place] [facility] [address] [id number] [place] [address]- 1379 Jul, [facility] [place] [facility] [address] [id number] [place] [address]- 6327 Jul, [facility] [place] [facility] [address] [id number] [place] [address]- 2142 Jul, [facility] [place] [facility] [address] [id number] [place] [address]- 6800 14 Jul, 2012 [facility] [place] [facility] [address] [id number] [place] [address]- 2206 Jul, [facility] [place] [facility] [address] [facility] [id number] [place] [address]- 1367 Jul, [facility] [place] [facility] [address] [id number] [place] [address]- 4892 Jul, [facility] [place] [facility] [address] [id number] [place] [address]- 3387 Jul, [facility] [place] [facility] [address] [facility] [facility] [id number] [place] [address]- 6205 Jul, [facility] [place] [facility] [address] [facility] [facility] [id number] [place] [address]- 5961 May, [facility] [place] [facility] [address] [id number], [place] [address]- 5888 May, [facility] [place] [facility] [address] [id number] [place] [address]- 0128 May, [facility] [place] [facility] [address] [id number] [place] [address]- 3864 May, [facility] [place] [facility] [address] [facility] [id number], [place] [address]- 2015 May, [facility] [place] [facility] [address] [id number], [place] [address]- 5804 May, [facility] [address] [id number] [place] [address]- 9946 May, [facility] [place] [facility] [address] [id number] [place] [address]- 3276 May, [facility] [address] [id number] [place] [address]- 6216 Apr, [facility] [place] [facility] [address] [id number] [place] [address]- 8146 Apr, [facility] [place] [facility] [address] [id number] [place] [address] Apr, [facility] [place] [facility] [address] [id number] [place] [address] Apr, [facility] [address] [facility] [facility] [id number] [place] [address] Apr, [facility] [place] [facility] [address] [id number] [place] [address] Apr, [facility] [place] [facility] [address] [id number] [place] [address] Apr, [facility] [place] [facility] [address] [id number] [place] [address] Apr, [facility] [place] [facility] [address] [id number] [place] [address] Apr, [facility] [place] [facility] [address] [id number] [place] [address] Apr, [facility] [place] [facility] [address] [id number] [place] [address] Apr, [facility] [place] [facility] [address] [id number] [place] [address] Mar, [facility] [place] [facility] [address] [id number] [place] [address] Mar, [facility] [place] [facility] [address] [facility] [address] [facility] [id number] [place] [address] Mar, [facility] [address] [facility] [id number], [place] [address] Mar, [facility] [address] [facility] [id number], [place] [address] Feb, [facility] [address] [facility] [id number], [place] [address] Feb, IMMUNIZATIONS No Known Immunizations SOCIAL HISTORY Never Assessed REASON FOR VISIT Lab results PLAN OF CARE VITAL SIGNS MEDICATIONS Medication Instructions Dosage Frequency Start Date End Date Duration Status Atorvastatin Calcium 80 MG Orally Once a day 1 tablet 24h Mar, 30 day(s) Active RESULTS No Results PROCEDURES No Known [...]
--- OUTSIDE RECORDS SUMMARY | 2018-09-21 05:54 | XMS REPORT ---
Author Author [address] [facility] Address [address] [place] [address] Care Team Providers Care Road Worker Name Role Phone [address] Unavailable PROBLEMS Type Condition ICD9-CM Code EJL97-TC Code Onset Dates Condition Status SNOMED Code Problem Bipolar depression F31.30 Active 51862292 Problem Atherosclerosis of coronary artery of tetlin heart without angina pectoris, unspecified vessel or lesion type I25.10 Active 054673023 Problem Pure hypercholesterolemia E78.00 Active 283076069 Problem Bladder spasms N32.89 Active 182064560 Problem Menopausal symptoms N95.1 Active 49765390 Problem Lumbago with sciatica, right side M54.41 Active 163191938 Problem Lumbago with sciatica, left side M54.42 Active 895084234 Problem Gastroesophageal reflux disease without esophagitis K21.9 Active 131436691 Problem Pain in thoracic spine M54.6 Active [id number] ALLERGIES Substance Reaction Event Type Date Status Prednisone aggitation Drug Allergy Mar, Active Plastic Tape Unknown Non Drug Allergy Mar, Active ENCOUNTERS Encounter Location Date Diagnosis [facility] [id number] [place] [address] 72964- 4382 Mar, Encounter for immunization Z23 ; Screening for breast cancer Z12.31 ; Screening for lipoid disorders Z13.220 ; Screening for diabetes mellitus Z13.1 ; Screening for thyroid disorder Z13.29 and Viral warts, unspecified type B07.9 [facility] [id number] [place] [address] 38495 -6008 Mar, Gastroenteritis K52.9 [facility] [id number] [place] [address] 54875 -0457 Dec, Rash and nonspecific skin eruption R21 [facility] [id number] [place] [address] 45253 -1462 Jul, Influenza-like illness R69 [facility] [place] [address] 66[address] -3221 Mar, Acute recurrent maxillary sinusitis J01.01 [place] [address] 01729- 2247 Feb, Pelvic pain R10.[address] [facility] [address] 9[address]77 -4457 Feb, Acute recurrent maxillary sinusitis J01.01 [place] [address] 52021- 9783 Feb, Cyst of left ovary N83.202 [place] [address] 41383- 5979 Feb, LLQ pain R10.32 [place] [address] 61688- 1654 Feb, Left lower quadrant pain R10.[address] [facility] [address] 25513 -3291 Jan, [facility] [place] [id number] [place] [address] 30203 -1518 Jan, Bladder spasms N32.89 [place] [address] 82503- 9985 Nov, Gastroesophageal reflux disease without esophagitis K21.9 ; HTN (hypertension) I10 ; Bipolar depression F31.30 ; Atherosclerosis of coronary artery of tetlin heart without angina pectoris, unspecified vessel or lesion type I25.10 ; Acquired hypothyroidism E03.9 and Menopausal symptoms N95.1 [place] [id number] [place] [address] 54928- 5059 Oct, Pain in thoracic spine M54.6 ; Bipolar depression F31.30 ; HTN (hypertension) I10 ; Atherosclerosis of coronary artery of tetlin heart without angina pectoris, unspecified vessel or lesion type I25.10 ; Acquired hypothyroidism E03.9 and Gastroesophageal reflux disease without esophagitis K21.9 [place] [id number] [place] [address] 46579- 1258 Oct, Pain in thoracic spine M54.6 [facility] [id number] [place] [address] 30343 -2522 September, Sore throat J02.9 ; Dysuria R30.0 ; Strep throat J02.0 and Acute cystitis with hematuria N30.01 [place] [address] 61664- 9766 September, Cervicalgia M54.2 and Pain in thoracic spine M54.6 [place] [id number] [place] [address] 74362- 6609 Aug, [place] [address] 83194- 3047 Aug, High risk bisexual behavior Z72.53 and Acute vaginitis N76.0 [place] [id number] [place] [address] 81075- 0738 May, Internal hemorrhoids K64.8 ; Lower abdominal pain R10.30 ; HTN (hypertension) I10 ; Bipolar depression F31.30 ; Hypercholesteremia E78.0 and Other hyperlipidemia E78.4 [place] [id number] [place] [address] 98519- 3460 Apr, Hypercholesteremia E78.0 [facility] [id number] [place] [address] 81771 -9534 Apr, Dysuria R30.0 ; Lumbago with sciatica, left side M54.42 and Lumbago with sciatica, right side M54.41 [place] [id number] [place] [address] 03209- 9862 Apr, HTN (hypertension) I10 ; Hypercholesteremia E78.0 ; Bipolar depression F31.30 ; Atherosclerosis of coronary artery of tetlin heart without angina pectoris, unspecified vessel or lesion type I25.10 ; Wellness examination Z00.00 ; Other hyperlipidemia E78.4 ; Acquired hypothyroidism E03.9 and Other viral warts B07.8 [facility] [id number] [place] [address] 78577 -5568 28 Feb, 2016 Encounter for immunization Z23 [facility] [place] [address] 6[address] -5144 27 Jan, 2016 Bronchitis J40 and Sore throat J02.[address] 35251 -8075 07 Jan, 2016 URI, acute J06.[address] 35278- 7751 September, Other hyperlipidemia E78.[address] 46164- 7378 September, HTN (hypertension) I10 ; Hypercholesteremia E78.0 ; Bipolar depression F31.30 ; Atherosclerosis of coronary artery of tetlin heart without angina pectoris, unspecified vessel or lesion type I25.10 ; Acute recurrent maxillary sinusitis J01.01 and Wellness examination Z00.00 [facility] [place] [id number] [place] [address] 35916 -2265 Aug, Acute allergic serous otitis media of both ears H65.113 and Acute sinusitis J01.90 [place] [id number] [place] [address] 20236- 0906 Jul, Encounter for PPD test Z11.1 [facility] [place] [address] 83240 -7554 May, Acute bacterial sinusitis J01.90 [place] [id number] [place] [address] 06645- 4789 May, [place] [address] 91359- 7752 Apr, [facility] [address] 77921- 6767 Apr, RUQ pain R10.11 and Exposure to strep throat Z20.818 [facility] [address] 64687- 1185 Mar, Right upper quadrant abdominal pain R10.11 [facility] [address] 29458- 9694 14 Mar, 2015 Encounter for immunization Z23 [facility] [address] 70410- 9127 Mar, Dysuria R30.0 [facility] [address] 29125- 2355 Feb, [facility] [address] 58074- 8296 Feb, Right upper quadrant pain R10.11 and Hematuria R31.9 [facility] [address] 03465- 2453 Jan, RUQ pain 789.01 and Obesity 278.00 [facility] [address] 86888- 7644 Dec, [facility] [address] 21914- 9756 Dec, [facility] [address] 55011- 5501 Nov, Edema 782.3 and Gastritis 535.50 [facility] [address] 96666- 2861 Nov, Hypertension 401.9 [facility] [address] 41280- 7226 Nov, [facility] [address] 97114- 6367 Nov, Edema 782.3 [facility] [id number] [place] [address] 49369- 6104 Nov, [facility] [id number] [place] [address] 54324- 7993 Nov, Hypertension 401.9 ; Hyperlipemia 272.4 ; Edema of lower extremity 782.3 and CAD (coronary artery disease) 414.00 [place] [id number] [place] [address] 86608- 9079 Oct, Edema 782.3 [facility] [id number] [place] [address] 07199- 6417 Oct, [place] [id number] [place] [address] 19304- 3983 Oct, Urinary incontinence 788.30 ; Weight gain due to medication 783.9 ; Status post foot surgery V45.89 and Bronchitis [address] [place] [id number] [place] [address] 08320- 3235 September, Routine physical examination V70.0 [place] [id number] [place] [address] 06262- 5800 Aug, Breast cancer screening V76.10 [place] [id number] [place] [address] 40936- 9877 Aug, [place] [id number] [place] [address] 84795- 9587 Aug, [facility] [id number] [place] [address] 43579- 3953 Jul, [facility] [id number] [place] [address] 65524- 5704 Jul, [facility] [id number] [place] [address] 87245- 6363 Jul, [facility] [id number] [place] [address] 31502- 2933 Jul, [facility] [place] [facility] [address] [id number] [place] [address]- 2647 Jul, 2014 [facility] [place] [facility] [address] [id number] [place] [address]- 3825 Jul, [facility] [place] [facility] [address] [id number] [place] [address]- 1000 Jul, [facility] [place] [facility] [address] [id number] [place] [address]- 3332 Jul, [facility] [place] [facility] [address] [id number] [place] [address]- 3510 May, [facility] [place] [facility] [address] [id number] [place] [address]- 0064 May, [facility] [place] [facility] [address] [id number] [place] [address]- 6421 May, [facility] [place] [facility] [address] [id number] [place] [address]- 4171 May, [facility] [place] [facility] [address] [id number] [place] [address]- 2435 Apr, [facility] [place] [facility] [address] [id number] [place] [address]- 0189 Apr, [facility] [place] [facility] [address] [id number] [place] [address]- 1433 Apr, [facility] [place] [facility] [address] [id number] [place] [address]- 9825 Apr, [facility] [place] [facility] [address] [id number] [place] [address]- 2185 Apr, [facility] [place] [facility] [address] [id number] [place] [address]- 0739 Apr, [facility] [place] [facility] [address] [id number] [place] [address]- 6186 Mar, [facility] [place] [facility] [address] [id number] [place] [address]- 3994 Mar, [facility] [place] [facility] [address] [id number] [place] [address]- 3658 Mar, [facility] [place] [facility] [address] [id number] [place] [address]- 7706 Mar, [facility] [place] [facility] [address] [id number] [place] [address]- 3474 Mar, [facility] [place] [facility] [address] [id number] [place] [address]- 7797 Mar, [facility] [place] [facility] [address] [id number] [place] [address]- 3698 Feb, [facility] [place] [facility] [address] [id number] [place] [address]- 5160 Feb, [facility] [place] [facility] [address] [id number] [place] [address]- 4186 Feb, [facility] [place] [facility] [address] [id number] [place] [address]- 2794 Feb, [facility] [place] [facility] [address] [id number] [place] [address]- 6115 Feb, [facility] [place] [facility] [address] [facility] [id number] [place] [address]- 7347 Feb, [facility] [place] [facility] [address] [id number] [place] [address]- 5794 19 Jan, 2014 [facility] [place] [facility] [address] [id number] [place] [address]- 6161 19 Jan, 2014 [facility] [place] [facility] [address] [id number] [place] [address]- 3468 12 Jan, 2014 [facility] [place] [facility] [address] [id number] [place] [address]- 9116 12 Jan, 2014 [facility] [place] [facility] [address] [id number] [place] [address]- 2398 04 Jan, 2014 [facility] [place] [facility] [address] [id number] [place] [address]- 8637 Jan, [facility] [place] [facility] [address] [id number] [place] [address]- 7752 Dec, [facility] [place] [facility] [address] [id number] [place] [address]- 5945 Dec, [facility] [place] [facility] [address] [id number] [place] [address]- 4633 Dec, [facility] [place] [facility] [address] [id number] [place] [address]- 6985 Dec, [facility] [place] [facility] [address] [id number] [place] [address]- 3502 Dec, [facility] [place] [facility] [address] [id number] [place] [address]- 8104 Dec, [facility] [place] [facility] [address] [id number] [place] [address]- 2360 Dec, [facility] [place] [facility] [address] [id number] [place] [address]- 9202 Dec, [facility] [place] [facility] [address] [id number] [place] [address]- 2969 Nov, [facility] [place] [facility] [address] [id number] [place] [address]- 6513 Nov, [facility] [place] [facility] [address] [id number] [place] [address]- 1403 Nov, [facility] [place] [facility] [address] [id number] [place] [address]- 4098 Nov, [facility] [place] [facility] [address] [id number] [place] [address]- 8794 Nov, [facility] [place] [facility] [address] [id number] [place] [address]- 4299 Nov, [facility] [place] [facility] [address] [id number] [place] [address]- 3434 Oct, [facility] [place] [facility] [address] [id number] [place] [address]- 5339 Oct, [facility] [place] [facility] [address] [id number] [place] [address]- 6916 Oct, [facility] [place] [facility] [address] [id number] [place] [address]- 4728 Oct, [facility] [place] [facility] [address] [id number] [place] [address]- 4010 Oct, [facility] [place] [facility] [address] [id number] [place] [address]- 1132 Oct, [facility] [place] [facility] [address] [id number] [place] [address]- 6350 September, [facility] [place] [facility] [address] [id number] [place] [address]- 7981 September, [facility] [place] [facility] [address] [id number] [place] [address]- 3430 Aug, [facility] [place] [facility] [address] [id number] [place] [address]- 2843 Aug, [facility] [place] [facility] [address] [id number] [place] [address]- 6170 Jul, [facility] [place] [facility] [address] [id number] [place] [address]- 7553 Jul, [facility] [place] [facility] [address] [id number] [place] [address]- 9085 Jul, [facility] [place] [facility] [address] [id number] [place] [address]- 1396 Jul, [facility] [place] [facility] [address] [id number] [place] [address]- 2390 Jul, [facility] [place] [facility] [address] [id number] [place] [address]- 7068 Jul, [facility] [place] [facility] [address] [id number] [place] [address]- 6778 10 Jul, 2013 [facility] [place] [facility] [address] [id number] [place] [address]- 4995 Jul, [facility] [place] [facility] [address] [id number] [place] [address]- 3206 May, [facility] [place] [facility] [address] [id number] [place] [address]- 3240 May, [facility] [place] [facility] [address] [id number] [place] [address]- 1927 Apr, [facility] [place] [facility] [address] [id number] [place] [address]- 6992 Apr, [facility] [place] [facility] [address] [id number] [place] [address]- 6802 Apr, [facility] [place] [facility] [address] [id number] [place] [address]- 1983 16 Apr, 2013 [facility] [place] [facility] [address] [id number] [place] [address]- 2757 12 Apr, 2013 [facility] [place] [facility] [address] [id number] [place] [address]- 1307 Apr, [facility] [place] [facility] [address] [id number] [place] [address]- 8243 Apr, [facility] [place] [facility] [address] [id number] [place] [address]- 7449 Apr, [facility] [place] [facility] [address] [id number] [place] [address]- 2549 Apr, [facility] [place] [facility] [address] [id number] [place] [address]- 1874 Mar, [facility] [place] [facility] [address] [id number] [place] [address]- 5956 Mar, [facility] [place] [facility] [address] [id number] [place] [address]- 1437 Mar, [facility] [place] [facility] [address] [id number] [place] [address]- 1232 Mar, [facility] [place] [facility] [address] [id number] [place] [address]- 5828 Feb, [facility] [place] [facility] [address] [id number] [place] [address]- 8746 Feb, [facility] [place] [facility] [address] [id number] [place] [address]- 6501 Jan, [facility] [place] [facility] [address] [id number] [place] [address]- 3731 Dec, [facility] [place] [facility] [address] [id number] [place] [address]- 2052 Dec, [facility] [place] [facility] [address] [id number] [place] [address]- 5394 Dec, [facility] [place] [facility] [address] [id number] [place] [address]- 7052 Nov, [facility] [place] [facility] [address] [id number] [place] [address]- 9405 Nov, [facility] [place] [facility] [address] [id number] [place] [address]- 2117 Nov, [facility] [place] [facility] [address] [id number] [place] [address]- 9445 Oct, [facility] [place] [facility] [address] [id number] [place] [address]- 9198 Aug, [facility] [place] [facility] [address] [id number] [place] [address]- 1195 Jul, [facility] [place] [facility] [address] [id number] [place] [address]- 8702 Jul, [facility] [place] [facility] [address] [id number] [place] [address]- 6803 Jul, [facility] [place] [facility] [address] [id number] [place] [address]- 4642 Jul, [facility] [address] [id number] [place] [address]- 9580 Jul, [facility] [place] [facility] [address] [id number] [place] [address] 2546 Jul, [facility] [place] [facility] [address] [id number] [place] [address]- 1988 Jul, [facility] [place] [facility] [address] [id number] [place] [address] 2544 14 Jul, 2012 [facility] [place] [facility] [address] [id number] [place] [address]- 0558 07 Jul, 2012 [facility] [place] [facility] [address] [id number] [place] [address] 2546 04 Jul, 2012 [facility] [place] [facility] [address] [id number] [place] [address] 2549 04 Jul, 2012 [facility] [place] [facility] [address] [id number] [place] [address]- 8553 Jul, [facility] [place] [facility] [address] [id number] [place] [address]- 4931 Jul, [facility] [place] [facility] [address] [id number] [place] [address]- 1852 May, [facility] [place] [facility] [address] [id number] [place] [address] 2544 May, [facility] [place] [facility] [address] [id number] [place] [address] 2540 May, [facility] [place] [facility] [address] [id number] [place] [address] 2543 May, [facility] [place] [facility] [address] [id number] [place] [address]- 2543 May, [facility] [place] [facility] [address] [id number] [place] [address]- 7099 May, [facility] [address] [id number] [place] [address]- 4681 May, [facility] [place] [facility] [address] [id number] [place] [address]- 4442 May, [facility] [address] [id number] [place] [address]- 5874 Apr, [facility] [place] [facility] [address] [id number] [place] [address]- 4581 Apr, [facility] [place] [facility] [address] [id number] [place] [address]- 1348 Apr, [facility] [place] [facility] [address] [id number] [place] [address]- 2416 Apr, [facility] [place] [facility] [address] [id number] [place] [address]- 8248 Apr, [facility] [place] [facility] [address] [id number] [place] [address]- 7090 Apr, [facility] [place] [facility] [address] [id number] [place] [address]- 9285 Apr, [facility] [place] [facility] [address] [id number] [place] [address]- 6415 Apr, [facility] [place] [facility] [address] [id number] [place] [address]- 1152 Apr, [facility] [place] [facility] [address] [id number] [place] [address] Apr, [facility] [place] [facility] [address] [id number] [place] [address] Apr, [facility] [place] [facility] [address] [id number] [place] [address] Mar, [facility] [place] [facility] [address] [id number] [place] [address] Mar, [facility] [place] [facility] [address] [facility] [id number] [place] [address] Mar, [facility] [address] [facility] [id number] [place] [address] Mar, [facility] [address] [facility] [id number] [place] [address] Feb, [facility] [address] [facility] [id number] [place] [address] Feb, IMMUNIZATIONS Vaccine Route Administration Date Status FLULAVAL QUAD 0.5ML (6 MO & UP) 2018 IM Intramuscular Apr 19, 2018 Administered SOCIAL HISTORY Never Assessed REASON FOR VISIT Annual Wellness Exam- NIMA Peñaloza, Establish Care- NIMA Peñaloza, breast exam and needs order for mammogram/ flu shot- NIMA Peñaloza PLAN OF CARE Activity Details Follow Up 3 months or as indicated by lab Reason: Pending Test Mammogram, Bilateral Screening Pending Test LIPID PANEL Pending Test CMP Pending Test TSH Future/Pending Procedure CRYOTHERAPY OF SKIN VITAL SIGNS Height 66 in 2018-04-19 Weight 222.8 lbs 2018-04-19 Temperature 98.0 degrees Fahrenheit 2018-04-19 Heart Rate 79 bpm 2018-04-19 Respiratory Rate 18 2018-04-19 BMI 35.96 kg/m2 2018-04-19 Blood pressure systolic 102 mmHg 2018-04-19 Blood pressure diastolic 68 mmHg 2018-04-19 MEDICATIONS Medication Instructions Dosage Frequency Start Date End Date Duration Status Fish Oil 1000 MG Orally Once a day 1 capsule 24h Active Simvastatin 10 MG Orally Once a day 1 tablet in the evening 24h Active MetFORMIN HCl ER 500 MG Orally Once a day 1 tablet with evening meal 24h Active Vitamin D-3 5000 UNIT Orally Once a day 1 tablet 24h Active RESULTS No Results PROCEDURES Procedure Date Ordered Result Body Site FLULAVAL QUAD 0.5ML (6 MO & UP) 2018 Apr 19, 2018 SINGLE IMMUNIZATION ADMIN Apr 19, 2018 VENIPUNCT, ROUTINE* Apr 19, 2018 CRYOTHERAPY OF SKIN Apr 19, 2018 LIPID PANEL Apr 19, 2018 COMPREHEN METABOLIC PANEL Apr 19, 2018 ASSAY THYROID STIM HORMONE Apr 19, 2018 INSTRUCTIONS MEDICATIONS ADMINISTERED No Known Medications MEDICAL [...]
--- OUTSIDE RECORDS SUMMARY | 2018-09-21 05:55 | XMS REPORT ---
Author Author [address] Organization [facility] Address [address] [place] [address] Care Team Providers Care Cabinetmaker Helper Name Role Phone [address] Unavailable PROBLEMS Type Condition ICD9-CM Code JQY66-OX Code Onset Dates Condition Status SNOMED Code Problem Atherosclerosis of coronary artery of [place] heart without angina pectoris, unspecified vessel or lesion type I25.10 Active 431166643 Problem Acquired hypothyroidism E03.9 Active 843725145 Problem Wellness examination Z00.00 Active 290011061 Problem HTN (hypertension) I10 Active 94400224 Problem Bipolar depression F31.30 Active 38730068 Problem Pure hypercholesterolemia E78.00 Active 810948574 Problem Bladder spasms N32.89 Active 382549732 Problem Menopausal symptoms N95.1 Active 77137243 Problem Lumbago with sciatica, right side M54.41 Active 077351711 Problem Lumbago with sciatica, left side M54.42 Active 408999349 Problem Gastroesophageal reflux disease without esophagitis K21.9 Active 652899088 Problem Pain in thoracic spine M54.6 Active [id number] ALLERGIES Substance Reaction Event Type Date Status Prednisone aggitation Drug Allergy Mar, Active Plastic Tape Unknown Non Drug Allergy Mar, Active ENCOUNTERS Encounter Location Date Diagnosis [facility] [address] [id number] [address] Mar, [facility] [id number] [place] [address] 28248 -4934 Mar, Gastroenteritis K52.9 [facility] [id number] [place] [address] 43513 -1143 Dec, Rash and nonspecific skin eruption R21 [facility] [id number] [place] [address] 26944 -7381 Jul, Influenza-like illness R69 [facility] [id number] [place] [address] 28433 -2271 Mar, Acute recurrent maxillary sinusitis J01.01 [facility] [id number] [place] [address] 37480- 6480 Feb, Pelvic pain R10.2 [facility] [place] [address] 6[address]29 -6374 Feb, Acute recurrent maxillary sinusitis J01.01 [place] [id number] [place] [address] 84124- 6529 Feb, Cyst of left ovary N83.202 [place] [address] [address]884- 7897 Feb, LLQ pain R10.32 [place] [address] 09187- 7290 Feb, Left lower quadrant pain R10.32 [facility] [place] [id number] [place] [address] 88586 -4315 Jan, [facility] [place] [id number] [place] [address] 23627 -9566 Jan, Bladder spasms N32.89 [place] [id number] [place] [address] 50798- 8477 Nov, Gastroesophageal reflux disease without esophagitis K21.9 ; HTN (hypertension) I10 ; Bipolar depression F31.30 ; Atherosclerosis of coronary artery of [place] heart without angina pectoris, unspecified vessel or lesion type I25.10 ; Acquired hypothyroidism E03.9 and Menopausal symptoms N95.1 [place] [id number] [place] [address] 30901- 3478 Oct, Pain in thoracic spine M54.6 ; Bipolar depression F31.30 ; HTN (hypertension) I10 ; Atherosclerosis of coronary artery of [place] heart without angina pectoris, unspecified vessel or lesion type I25.10 ; Acquired hypothyroidism E03.9 and Gastroesophageal reflux disease without esophagitis K21.9 [place] [id number] [place] [address] 91664- 0157 Oct, Pain in thoracic spine M54.6 [facility] [place] [id number] [place] [address] 44428 -4516 September, Sore throat J02.9 ; Dysuria R30.0 ; Strep throat J02.0 and Acute cystitis with hematuria N30.01 [place] [address] 01110- 8132 September, Cervicalgia M54.2 and Pain in thoracic spine M54.6 [place] [address] 37433- 3974 Aug, [place] [address] 38114- 9820 Aug, High risk bisexual behavior Z72.53 and Acute vaginitis N76.0 [place] [id number] [place] [address] 49442- 0461 May, Internal hemorrhoids K64.8 ; Lower abdominal pain R10.30 ; HTN (hypertension) I10 ; Bipolar depression F31.30 ; Hypercholesteremia E78.0 and Other hyperlipidemia E78.4 [place] [id number] [place] [address] 45532- 2706 Apr, Hypercholesteremia E78.0 [facility] [id number] [place] [address] 93099 -0489 Apr, Dysuria R30.0 ; Lumbago with sciatica, left side M54.42 and Lumbago with sciatica, right side M54.41 [place] [id number] [place] [address] 51367- 9157 Apr, HTN (hypertension) I10 ; Hypercholesteremia E78.0 ; Bipolar depression F31.30 ; Atherosclerosis of coronary artery of [place] heart without angina pectoris, unspecified vessel or lesion type I25.10 ; Wellness examination Z00.00 ; Other hyperlipidemia E78.4 ; Acquired hypothyroidism E03.9 and Other viral warts B07.8 [facility] [id number] [place] [address] 23453 -5513 28 Feb, 2016 Encounter for immunization Z23 [facility] [address] [address]57 [address]2171 27 Jan, 2016 Bronchitis J40 and Sore throat J02.9 [facility] [place] [address] 39347 -2075 07 Jan, 2016 URI, acute J06.9 [place] [address] 32454- 5229 September, Other hyperlipidemia E78.4 [place] [address] 90268- 3538 September, HTN (hypertension) I10 ; Hypercholesteremia E78.0 ; Bipolar depression F31.30 ; Atherosclerosis of coronary artery of [place] heart without angina pectoris, unspecified vessel or lesion type I25.10 ; Acute recurrent maxillary sinusitis J01.01 and Wellness examination Z00.00 [facility] [place] [id number] [place] [address] 49396 -2004 Aug, Acute allergic serous otitis media of both ears H65.113 and Acute sinusitis J01.90 [place] [id number] [place] [address] 45297- 4904 Jul, Encounter for PPD test Z11.1 [facility] [place] [id number] [place] [address] 12151 -0025 May, Acute bacterial sinusitis J01.90 [place] [id number] [place] [address] 34557- 1094 May, [place] [id number] [place] [address] 96244- 4959 Apr, [place] [address] 32326- 8733 08 Apr, 2015 RUQ pain R10.11 and Exposure to strep throat Z20.818 [facility] [address] 49252- 1316 Mar, Right upper quadrant abdominal pain R10.11 [facility] [address] 69714- 1641 Mar, Encounter for immunization Z23 [facility] [address] 39042- 3681 Mar, Dysuria R30.0 [place] [address] 19007- 6522 Feb, [place] [address] 34465- 0882 Feb, Right upper quadrant pain R10.11 and Hematuria R31.9 [place] [address] 38563- 8028 Jan, RUQ pain 789.01 and Obesity 278.00 [place] [address] 33364- 8247 Dec, [facility] [address] 88839- 0049 Dec, [facility] [address] 08474- 2296 Nov, Edema 782.3 and Gastritis 535.50 [facility] [address] 65571- 0432 Nov, Hypertension 401.9 [facility] [address] 19735- 4572 Nov, [facility] [address] 42484- 5682 Nov, Edema 782.3 [facility] [id number] [place] [address] 78463- 8935 Nov, [facility] [id number] [place] [address] 85186- 4139 Nov, Hypertension 401.9 ; Hyperlipemia 272.4 ; Edema of lower extremity 782.3 and CAD (coronary artery disease) 414.00 [place] [id number] [place] [address] 28614- 4544 Oct, Edema 782.3 [place] [id number] [place] [address] 92497- 5090 Oct, [place] [address] 32969- 5117 Oct, Urinary incontinence 788.30 ; Weight gain due to medication 783.9 ; Status post foot surgery V45.89 and Bronchitis 490 [place] [id number] [place] [address] 50959- 5384 September, Routine physical examination V70.0 [place] [id number] [place] [address] 12598- 9635 Aug, Breast cancer screening V76.10 [place] [id number] [place] [address] 69332- 8878 Aug, [place] [address] [address] 0452 Aug, [place] [id number] [place] [address] 08323- 0933 Jul, [facility] [id number] [place] [address] 57566- 2662 Jul, [facility] [id number] [place] [address] 56808- 0648 Jul, [facility] [address] [address]- 9166 Jul, [facility] [id number] [place] [address] 43675- 3597 Jul, [facility] [place] [facility] [address] [id number] [place] [address]- 3716 Jul, [facility] [place] [facility] [address] [id number] [place] Jul, [facility] [place] [facility] [address] [id number] [place] [address]- 4146 Jul, [facility] [place] [facility] [address] [id number] [place] [address]- 8578 May, [facility] [place] [facility] [address] [id number] [place] [address]- 3353 May, [facility] [place] [facility] [address] [id number] [place] [address]- 7233 May, [facility] [place] [facility] [address] [id number] [place] [address]- 9636 May, [facility] [place] [facility] [address] [id number] [place] [address]- 5806 Apr, [facility] [place] [facility] [address] [id number] [place] [address]- 1931 Apr, [facility] [place] [facility] [address] [facility] [id number] [place] [address]- 8598 Apr, [facility] [place] [facility] [address] [id number] [place] [address]- 7568 Apr, [facility] [place] [facility] [address] [id number] [place] [address]- 2640 Apr, [facility] [place] [facility] [address] [id number] [place] 9150 Apr, [facility] [place] [facility] [address] [id number] [place] [address]- 3896 Mar, [facility] [place] [facility] [address] [id number] [place] [address]- 7850 Mar, [facility] [place] [facility] [address] [id number] [place] [address]- 4691 Mar, [facility] [place] [facility] [address] [id number] [place] [address]- 7116 Mar, [facility] [place] [facility] [address] [id number] [place] [address]- 7245 Mar, [facility] [place] [facility] [address] [id number] [place] [address]- 9669 Mar, [facility] [place] [facility] [address] [id number] [place] [address]- 4064 Feb, [facility] [place] [facility] [address] [id number] [place] [address]- 5281 Feb, [facility] [place] [facility] [address] [id number] [place] [address]- 3765 Feb, [facility] [place] [facility] [address] [id number] [place] [address]- 3148 Feb, [facility] [place] [facility] [address] [id number] [place] [address]- 8501 Feb, [facility] [place] [facility] [address] [id number] [place] [address]- 0162 Feb, [facility] [place] [facility] [address] [id number] [place] [address]- 9841 Jan, [facility] [place] [facility] [address] [id number] [place] [address]- 9740 19 Jan, 2014 [facility] [place] [facility] [address] [id number] [place] [address]- 8946 12 Jan, 2014 [facility] [place] [facility] [address] [id number] [place] [address]- 3082 12 Jan, 2014 [facility] [place] [facility] [address] [id number] [place] [address]- 1910 04 Jan, 2014 [facility] [place] [facility] [address] [id number] [place] [address]- 0812 Jan, [facility] [place] [facility] [address] [id number] [place] [address]- 3714 Dec, [facility] [place] [facility] [address] [id number] [place] [address]- 2349 Dec, [facility] [place] [facility] [address] [id number] [place] [address]- 0313 Dec, [facility] [place] [facility] [address] [id number] [place] [address]- 1029 Dec, [facility] [place] [facility] [address] [id number] [place] [address]- 0077 Dec, [facility] [place] [facility] [address] [id number] [place] [address]- 0720 Dec, [facility] [place] [facility] [address] [id number] [place] [address]- 9257 Dec, [facility] [place] [facility] [address] [id number] [place] [address]- 7248 Dec, [facility] [place] [facility] [address] [id number] [place] [address]- 6447 Nov, [facility] [place] [facility] [address] [id number] [place] [address]- 7692 Nov, [facility] [place] [facility] [address] [id number] [place] [address]- 5986 Nov, [facility] [place] [facility] [address] [id number] [place] [address]- 2658 Nov, [facility] [place] [facility] [address] [id number] [place] [address]- 4501 Nov, [facility] [place] [facility] [address] [id number] [place] [address]- 1003 Nov, [facility] [place] [facility] [address] [id number] [place] [address]- 2938 Oct, [facility] [place] [facility] [address] [id number] [place] [address]- 4605 Oct, [facility] [place] [facility] [address] [id number] [place] [address]- 4981 Oct, [facility] [place] [facility] [address] [id number] [place] [address]- 4509 Oct, [facility] [place] [facility] [address] [id number] [place] [address]- 9623 Oct, [facility] [place] [facility] [address] [id number] [place] [address]- 6923 Oct, [facility] [place] [facility] [address] [id number] [place] [address]- 1170 September, [facility] [place] [facility] [address] [id number] [place] [address]- 8939 September, [facility] [place] [facility] [address] [id number] [place] [address]- 5180 Aug, [facility] [place] [facility] [address] [id number] [place] [address]- 1401 Aug, [facility] [place] [facility] [address] [id number] [place] [address]- 3943 Jul, [facility] [place] [facility] [address] [facility] [id number] [place] [address]- 9625 Jul, [facility] [place] [facility] [address] [id number] [place] [address]- 1526 Jul, [facility] [place] [facility] [address] [id number] [place] [address]- 8142 Jul, [facility] [place] [facility] [address] [id number] [place] [address]- 2125 Jul, [facility] [place] [facility] [address] [id number] [place] [address]- 5673 Jul, [facility] [place] [facility] [address] [id number] [place] [address]- 7526 10 Jul, 2013 [facility] [place] [facility] [address] [id number] [place] [address]- 3742 Jul, [facility] [place] [facility] [address] [id number] [place] [address]- 5646 May, [facility] [place] [facility] [address] [id number] [place] [address]- 6125 May, [facility] [place] [facility] [address] [id number] [place] [address]- 3794 Apr, [facility] [place] [facility] [address] [id number] [place] [address]- 7846 Apr, [facility] [place] [facility] [address] [id number] [place] [address]- 1558 Apr, [facility] [place] [facility] [address] [id number] [place] [address]- 0433 Apr, [facility] [place] [facility] [address] [id number] [place] [address]- 1052 Apr, [facility] [place] [facility] [address] [id number] [place] [address]- 1150 Apr, [facility] [place] [facility] [address] [id number] [place] [address]- 1530 Apr, [facility] [place] [facility] [address] [id number] [place] [address]- 9222 Apr, [facility] [place] [facility] [address] [id number] [place] [address]- 8240 Apr, [facility] [place] [facility] [address] [id number] [place] [address]- 5148 Mar, [facility] [place] [facility] [address] [id number] [place] [address]- 0011 Mar, [facility] [place] [facility] [address] [id number] [place] [address]- 7104 Mar, [facility] [place] [facility] [address] [id number] [place] [address]- 9652 Mar, [facility] [address] [id number] [place] [address]- 0922 Feb, [facility] [place] [facility] [address] [id number] [place] [address]- 8153 Feb, [facility] [address] [id number] [place] [address]- 9222 Jan, [facility] [place] [facility] [address] [id number] [place] [address]- 3711 Dec, [facility] [place] [facility] [address] [id number] [place] [address]- 9811 Dec, [facility] [place] [facility] [address] [id number] [place] [address]- 4351 Dec, [facility] [address] [id number] [place] [address]- 3960 Nov, [facility] [address] [id number] [place] [address]- 0179 Nov, [facility] [place] [facility] [address] [id number] [place] [address]- 5589 Nov, [facility] [address] [id number] [place] [address]- 8087 Oct, [facility] [place] [facility] [address] [id number] [place] [address]- 1822 Aug, [facility] [place] [facility] [address] [id number] [place] [address]- 9936 Jul, [facility] [place] [facility] [address] [id number] [place] [address]- 8320 Jul, [facility] [place] [facility] [address] [id number] [place] [address]- 8505 Jul, [facility] [place] [facility] [address] [id number] [place] [address]- 0811 Jul, [facility] [place] [facility] [address] [id number] [place] [address]- 0315 Jul, [facility] [place] [facility] [address] [id number] [place] [address]- 8546 Jul, [facility] [place] [facility] [address] [id number] [place] [address]- 4836 Jul, [facility] [place] [facility] [address] [id number] [place] [address] 2549 14 Jul, 2012 [facility] [address] [id number] [place] [address] 2542 Jul, [facility] [place] [facility] [address] [id number] [place] [address]- 6340 Jul, [facility] [place] [facility] [address] [id number] [place] [address]- 8726 Jul, [facility] [place] [facility] [address] [id number] [place] [address]- 9953 Jul, [facility] [place] [facility] [address] [id number] [place] [address]- 7572 Jul, [facility] [place] [facility] [address] [id number] [place] [address]- 8867 May, [facility] [place] [facility] [address] [id number] [place] [address]- 5506 May, [facility] [place] [facility] [address] [id number] [place] [address]- 6149 May, [facility] [place] [facility] [address] [id number] [place] [address]- 3865 May, [facility] [place] [facility] [address] [id number] [place] [address]- 4856 May, [facility] [place] [facility] [address] [id number] [place] [address]- 6968 May, [facility] [place] [facility] [address] [id number] [place] [address]- 7558 May, [facility] [address] [id number] [place] [address]- 4726 May, [facility] [address] [id number] [place] [address]276 Apr, [facility] [address] [id number] [place] [address]- 9146 Apr, [facility] [place] [facility] [address] [id number] [place] [address]- 4756 Apr, [facility] [address] [id number] [place] [address] Apr, [facility] [address] [id number] [place] [address] Apr, [facility] [address] [id number] [place] [address] Apr, [facility] [address] [id number] [place] [address] Apr, [facility] [place] [facility] [address] [id number] [place] [address] Apr, [facility] [address] [id number] [place] [address] Apr, [facility] [place] [facility] [address] [id number] [place] [address] Apr, [facility] [place] [facility] [address] [id number] [place] [address] Apr, [facility] [place] [facility] [address] [id number] [place] [address] Mar, [facility] [place] [facility] [address] [id number] [place] [address] Mar, [facility] [place] [facility] [address] [id number] [place] [address] Mar, [facility] [address] [facility] [id number] [place] [address] Mar, [facility] [address] [facility] [id number] [address] Feb, [facility] [address] [facility] [id number] [place] [address] Feb, IMMUNIZATIONS Vaccine Route Administration Date Status PHENERGAN 50MG/ML IM Intramuscular Apr 03, 2018 Administered SOCIAL HISTORY Never Assessed REASON FOR VISIT Vomiting started this morning- has a lot of facial pressure JStrasserRN PLAN OF CARE Activity Details Follow Up if not improving with PCP or reg follow up Reason: VITAL SIGNS Height 66 in 2018-04-03 Weight 222.2 lbs 2018-04-03 Temperature 97.7 degrees Fahrenheit 2018-04-03 Heart Rate 76 bpm 2018-04-03 Respiratory Rate 20 2018-04-03 BMI 35.86 kg/m2 2018-04-03 Blood pressure systolic 114 mmHg 2018-04-03 Blood pressure diastolic 80 mmHg 2018-04-03 MEDICATIONS Medication Instructions Dosage Frequency Start Date End Date Duration Status Vitamin D-3 5000 UNIT Orally Once a day 1 tablet 24h Active Promethazine HCl 25 MG Orally 4 times a day 1 tablet as needed 6h Mar, Mar, 5 days Active Simvastatin 10 MG Orally Once a day 1 tablet in the evening 24h Active MetFORMIN HCl ER 500 MG Orally Once a day 1 tablet with evening meal 24h Active Fish Oil 1000 MG Orally Once a day 1 capsule 24h Active RESULTS No Results PROCEDURES Procedure Date Ordered Result Body Site PHENERGAN 50MG/ML Apr 03, 2018 THER/PROPH/DIAG INJ, SC/IM Apr 03, 2018 INSTRUCTIONS MEDICATIONS ADMINISTERED No Known Medications [...]
--- OUTSIDE RECORDS SUMMARY | 2018-09-21 05:56 | XMS REPORT ---
Author Author TAMIKO MELENDEZ Organization [facility] Address [address] [place] [address] Care Team Providers Care Continuing Education Director Name Role Phone TAMIKO MELENDEZ Unavailable PROBLEMS Type Condition ICD9-CM Code HQZ80-II Code Onset Dates Condition Status SNOMED Code Problem Atherosclerosis of coronary artery of [place] heart without angina pectoris, unspecified vessel or lesion type I25.10 Active 677982614 Problem Acquired hypothyroidism E03.9 Active 844807957 Problem Wellness examination Z00.00 Active 327723169 Problem HTN (hypertension) I10 Active 32976587 Problem Bipolar depression F31.30 Active 86253497 Problem Pure hypercholesterolemia E78.00 Active 262082502 Problem Bladder spasms N32.89 Active 597208595 Problem Menopausal symptoms N95.1 Active 54184363 Problem Lumbago with sciatica, right side M54.41 Active 146867300 Problem Lumbago with sciatica, left side M54.42 Active 077951637 Problem Gastroesophageal reflux disease without esophagitis K21.9 Active 892970696 Problem Pain in thoracic spine M54.6 Active [id number] ALLERGIES Substance Reaction Event Type Date Status Prednisone aggitation Drug Allergy Mar, Active Plastic Tape Unknown Non Drug Allergy Mar, Active ENCOUNTERS Encounter Location Date Diagnosis [facility] [address] [facility] [id number] [address] Jul, Influenza-like illness R69 [facility] [address] [id number] [address] Mar, Acute recurrent maxillary sinusitis J01.01 [facility] [address] [id number] [address] Feb, Pelvic pain R10.2 [facility] [address] [id number] [address] Feb, Acute recurrent maxillary sinusitis J01.01 [place] [address] [place] [id number] [place] [address] Feb, Cyst of left ovary N83.202 [place] [address] [address] 10 Feb, 2017 LLQ pain R10.32 [place] [address] [address] 09 Feb, 2017 Left lower quadrant pain R10.32 [facility] [place] [address] [address] Jan, [facility] [place] [address] [address] Jan, Bladder spasms N32.[address] [address] Nov, Gastroesophageal reflux disease without esophagitis K21.9 ; HTN (hypertension) I10 ; Bipolar depression F31.30 ; Atherosclerosis of coronary artery of [place] heart without angina pectoris, unspecified vessel or lesion type I25.10 ; Acquired hypothyroidism E03.9 and Menopausal symptoms N95.1 [place] [address] [address] Oct, Pain in thoracic spine M54.6 ; Bipolar depression F31.30 ; HTN (hypertension) I10 ; Atherosclerosis of coronary artery of [place] heart without angina pectoris, unspecified vessel or lesion type I25.10 ; Acquired hypothyroidism E03.9 and Gastroesophageal reflux disease without esophagitis K21.9 [place] [address] [address] Oct, Pain in thoracic spine M54.6 [facility] [place] [address] [id number] [place] [address] September, Sore throat J02.9 ; Dysuria R30.0 ; Strep throat J02.0 and Acute cystitis with hematuria N30.[address] [address] 09 Sep, 2016 Cervicalgia M54.2 and Pain in thoracic spine M54.[address] [address] Aug, [address] [address] Aug, High risk bisexual behavior Z72.53 and Acute vaginitis N76.[address] [address] May, Internal hemorrhoids K64.8 ; Lower abdominal pain R10.30 ; HTN (hypertension) I10 ; Bipolar depression F31.30 ; Hypercholesteremia E78.0 and Other hyperlipidemia E78.[address] [address] Apr, Hypercholesteremia E78.0 [facility] IN [address] [address] 08 Apr, 2016 Dysuria R30.0 ; Lumbago with sciatica, left side M54.42 and Lumbago with sciatica, right side M54.[address] [address] Apr, HTN (hypertension) I10 ; Hypercholesteremia E78.0 ; Bipolar depression F31.30 ; Atherosclerosis of coronary artery of [place] heart without angina pectoris, unspecified vessel or lesion type I25.10 ; Wellness examination Z00.00 ; Other hyperlipidemia E78.4 ; Acquired hypothyroidism E03.9 and Other viral warts B07.8 [facility] IN [address] [address] Feb, Encounter for immunization Z23 [facility] IN [address] [address] 27 Jan, 2016 Bronchitis J40 and Sore throat J02.9 [facility] [id number] [place] [address] 07 Jan, 2016 URI, acute J06.9 [place] [address] [address] September, Other hyperlipidemia E78.[address] [address] September, HTN (hypertension) I10 ; Hypercholesteremia E78.0 ; Bipolar depression F31.30 ; Atherosclerosis of coronary artery of [place] heart without angina pectoris, unspecified vessel or lesion type I25.10 ; Acute recurrent maxillary sinusitis J01.01 and Wellness examination Z00.00 [facility] IN [place] [address] [address] Aug, Acute allergic serous otitis media of both ears H65.113 and Acute sinusitis J01.90 [place] [address] [address] Jul, Encounter for PPD test Z11.1 [facility] IN [address] [address] May, Acute bacterial sinusitis J01.90 [place] [address] [id number] [place] [address] May, [place] [address] [address] Apr, [place] [address] [address] 08 Apr, 2015 RUQ pain R10.11 and Exposure to strep throat Z20.818 [place] [address] [address] 17 Mar, 2015 Right upper quadrant abdominal pain R10.11 [place] [address] 96[address]- 6[address] 14 Mar, 2015 Encounter for immunization Z23 [place] [address] [place] [id number] [place] [address] Mar, Dysuria R30.0 [place] [address] [address]- [address] Feb, [place] [address] [address] Feb, Right upper quadrant pain R10.11 and Hematuria R31.9 [place] [address] [address] Jan, RUQ pain 789.01 and Obesity 278.00 [place] [address] [address]- [address] Dec, [place] [address] 6[address]- [address] Dec, [place] [address] 03163- 6446 Nov, Edema 782.3 and Gastritis 535.50 [place] [address] [address] Nov, Hypertension 401.9 [place] [address] 6[address]85- 9[address] Nov, [place] [address] 15017- 2784 Nov, Edema 782.3 [place] [address] [address]- 6[address] Nov, [place] [address] 6[address]66- [address] Nov, Hypertension 401.9 ; Hyperlipemia 272.4 ; Edema of lower extremity 782.3 and CAD (coronary artery disease) 414.00 [place] [address] [place] [id number] [place] [address] 8[address] Oct, Edema 782.3 [facility] [address] [id number] [address] Oct, [facility] [address] [id number] [place] [address] Oct, Urinary incontinence 788.30 ; Weight gain due to medication 783.9 ; Status post foot surgery V45.89 and Bronchitis 490 [facility] [id number] [place] [address]- [address] September, Routine physical examination V70.0 [facility] [id number] [place] [address] 10752- 5870 Aug, Breast cancer screening V76.10 [facility] [address] [place] [id number] [place] [address]61- 75[address] Aug, [facility] [address] [id number] [place] [address] 8[address]85- 9176 Aug, [facility] [id number] [place] [address]81- 5135 Jul, [facility] [id number] [place] [address] 01261- 5782 Jul, [facility] [id number] [place] [address] 81095- 5597 Jul, [facility] [address] [place] [address] 8[address]39- 555[address] Jul, [facility] [id number] [place] [address] 61652- 4279 Jul, [facility] [address] [place] [address] 10259- 0505 Jul, [facility] [id number] [place] [address] 31631- 7565 Jul, [facility] [address] [address] Jul, [facility] [place] [facility] [address] [id number] [place] [address] 69[address] May, [facility] [place] [facility] [address] [id number] [place] [address]- 6471 May, [facility] [place] [facility] [address] [id number] [place] [address]- 8887 May, [facility] [place] [facility] [address] [id number] [place] [address]- 37[address] May, [facility] [place] [facility] [address] [id number] [place] [address]- 8862 Apr, [facility] [place] [facility] [address] [id number] [place] [address]- 5534 Apr, [facility] [place] [facility] [address] [id number] [place] [address]- 7651 Apr, [facility] [place] [facility] [address] [id number] [place] [address]- 5592 Apr, [facility] [place] [facility] [address] [id number] [place] [address]- 0948 Apr, [facility] [place] [facility] [address] [id number] [place] [address]- 1972 Apr, [facility] [place] [facility] [address] [id number] [place] [address]- 9341 Mar, [facility] [place] [facility] [address] [id number] [place] [address]- 1461 Mar, [facility] [place] [facility] [address] [id number] [place] [address]- 0795 Mar, [facility] [place] [facility] [address] [id number] [place] [address]- 3557 Mar, [facility] [place] [facility] [address] [id number] [place] [address]- 8654 Mar, [facility] [place] [facility] [address] [id number] [place] [address] 59[address] Mar, [facility] [place] [facility] [address] [id number] [place] [address]- 4809 Feb, [facility] [place] [facility] [address] [id number] [place] [address]- 6901 14 Feb, 2014 [facility] [place] [facility] [address] [id number] [place] [address]- 7014 Feb, [facility] [place] [facility] [address] [id number] [place] [address]- 5838 Feb, [facility] [place] [facility] [address] [id number] [place] [address]- 4154 Feb, [facility] [place] [facility] [address] [id number] [place] [address]- 1536 Feb, [facility] [place] [facility] [address] [id number] [place] [address]- 5136 Jan, [facility] [place] [facility] [address] [id number] [place] [address]- 8732 Jan, [facility] [place] [facility] [address] [id number] [place] [address]- 8253 12 Jan, 2014 [facility] [place] [facility] [address] [id number] [place] [address]- 5713 Jan, [facility] [place] [facility] [address] [id number] [address] 6990 Jan, [facility] [place] [facility] [address] [id number] [address]- 4375 Jan, [facility] [place] [facility] [address] [id number] [place] [address]- 4350 Dec, [facility] [place] [facility] [address] [id number] [place] [address]- 9277 Dec, [facility] [place] [facility] [address] [id number] [place] [address]- 9882 Dec, [facility] [place] [facility] [address] [id number] [place] [address]- 7482 Dec, [facility] [place] [facility] [address] [id number] [place] [address]- 9151 Dec, [facility] [place] [facility] [address] [id number] [place] [address]- 9153 Dec, [facility] [place] [facility] [address] [id number] [place] [address]- 7016 Dec, [facility] [place] [facility] [address] [id number] [place] [address]- 9610 Dec, [facility] [place] [facility] [address] [id number] [place] [address]- 2973 Nov, [facility] [place] [facility] [address] [id number] [place] [address]- 9424 Nov, [facility] [place] [facility] [address] [id number] [place] [address]- 3666 Nov, [facility] [place] [facility] [address] [id number] [place] [address]- 8855 Nov, [facility] [place] [facility] [address] [id number] [place] [address]- 2363 Nov, [facility] [place] [facility] [address] [id number] [place] [address]- 9154 Nov, [facility] [place] [facility] [address] [id number] [place] [address]- 0432 Oct, [facility] [place] [facility] [address] [id number] [place] [address]- 2378 Oct, [facility] [place] [facility] [address] [id number] [place] [address]- 0984 Oct, [facility] [place] [facility] [address] [id number] [place] [address]- 1568 Oct, [facility] [place] [facility] [address] [id number] [place] 24[address] Oct, [facility] [place] [facility] [address] [id number] [place] [address]- 0288 Oct, [facility] [place] [facility] [address] [id number] [place] [address]- 8392 September, [facility] [place] [facility] [address] [id number] [place] [address]- 7403 September, [facility] [place] [facility] [address] [id number] [place] [address]- 8862 Aug, [facility] [place] [facility] [address] [id number] [place] [address]- 7482 Aug, [facility] [place] [facility] [address] [id number] [place] [address]- 9278 Jul, [facility] [place] [facility] [address] [id number] [place] [address]- 1728 Jul, [facility] [place] [facility] [address] [id number] [place] [address]- 9085 Jul, [facility] [place] [facility] [address] [id number] [place] [address]- 6219 Jul, [facility] [place] [facility] [address] [id number] [place] [address]- 7391 Jul, [facility] [place] [facility] [address] [id number] [place] [address]- 2183 Jul, [facility] [place] [facility] [address] [id number] [place] [address]- 7424 Jul, [facility] [place] [facility] [address] [id number] [place] [address]- 6967 Jul, [facility] [place] [facility] [address] [id number] [place] [address]- 7725 May, [facility] [place] [facility] [address] [id number] [place] [address]- 9991 May, [facility] [place] [facility] [address] [id number] [place] [address]- 9790 24 Apr, 2013 [facility] [address] [id number] [place] [address]- 8256 24 Apr, 2013 [facility] [place] [facility] [address] [id number] [place] [address]- 2123 16 Apr, 2013 [facility] [place] [facility] [address] [id number] [place] 7841 16 Apr, 2013 [facility] [place] [facility] [address] [id number] [place] [address]- 4851 12 Apr, 2013 [facility] [place] [facility] [address] [id number] [place] [address]- 1581 11 Apr, 2013 [facility] [place] [facility] [address] [id number] [place] [address]- 4074 Apr, [facility] [place] [facility] [address] [id number] [place] [address]- 0889 10 Apr, 2013 [facility] [place] [facility] [address] [id number] [place] [address]- 4215 Apr, [facility] [place] [facility] [address] [id number] [place] [address]- 0503 Mar, [facility] [place] [facility] [address] [id number] [place] [address]- 2445 Mar, [facility] [place] [facility] [address] [id number] [place] [address]- 8202 Mar, [facility] [place] [facility] [address] [id number] [place] [address]- 8062 Mar, [facility] [place] [facility] [address] [id number] [place] [address]- 4470 29 Feb, 2013 [facility] [place] [facility] [address] [id number] [place] [address]- 8843 29 Feb, 2013 [facility] [place] [facility] [address] [id number] [place] [address]- 1336 06 Jan, 2013 [facility] [place] [facility] [address] [id number] [place] [address]- 3936 Dec, [facility] [address] [id number] [place] [address]- 0083 Dec, [facility] [place] [facility] [address] [id number] [place] [address]- 2644 Dec, [facility] [place] [facility] [address] [id number] [place] [address]- 2030 Nov, [facility] [address] [id number] [place] [address]- 7907 Nov, [facility] [place] [facility] [address] [id number] [place] [address]- 0082 Nov, [facility] [address] [id number] [place] [address]- 8428 Oct, [facility] [address] [id number] [place] [address]- 4398 Aug, [facility] [address] [id number] [place] [address]- 3616 Jul, [facility] [address] [id number] [place] [address]- 8223 Jul, [facility] [address] [id number] [place] [address]- 3324 Jul, [facility] [place] [facility] [address] [id number] [place] [address]- 2616 Jul, [facility] [place] [facility] [address] [id number] [place] [address]- 0739 Jul, [facility] [place] [facility] [address] [id number] [place] [address]- 2228 Jul, [facility] [place] [facility] [address] [id number] [place] [address]- 4261 Jul, [facility] [place] [facility] [address] [id number] [place] [address]- 1224 14 Jul, 2012 [facility] [address] [id number] [place] [address]- 0946 07 Jul, 2012 [facility] [address] [id number] [place] [address]- 5306 04 Jul, 2012 [facility] [address] [id number] [place] [address]- 7296 Jul, [facility] [address] [id number] [place] [address]- 0929 Jul, [facility] [address] [id number] [place] [address]- 4799 Jul, [facility] [address] [id number] [place] [address]- 8622 May, [facility] [address] [id number] [place] [address]- 5316 May, [facility] [address] [id number] [place] [address]- 4463 May, [facility] [address] [id number] [place] [address]- 6736 May, [facility] [address] [id number] [place] [address]- 2185 May, [facility] [address] [id number] [place] [address]- 1468 May, [facility] [address] [id number] [place] [address]- 4761 May, [facility] [address] [id number] [place] [address]- 8576 May, [facility] [address] [id number] [place] [address]- 1723 Apr, [facility] [address] [id number] [place] [address]- 7153 Apr, [facility] [address] [facility] [id number] [address] [address] Apr, [facility] [address] [facility] [id number] [place] 1706 Apr, [facility] [address] [facility] [id number] [place] [address]- 4776 Apr, [facility] [address] [facility] [id number] [place] [address], [place] [address]- 6816 Apr, [facility] [address] [facility] [id number] [place] 8535 Apr, [facility] [address] [facility] [id number] [place] 7216 Apr, [facility] [id number] [place] [address]- 6169 Apr, [facility] [id number] [address] Apr, [facility] [id number] [address] Apr, [facility] [id number] [address] Mar, [facility] [id number] [address] Mar, [facility] [id number] [address] Mar, [facility] [id number] [address] Mar, [facility] [id number] [address] Feb, [facility] [id number] [address] Feb, IMMUNIZATIONS Vaccine Route Administration Date Status SOLUMEDROL (UP TO 125 MG) IM Intramuscular Mar 31, 2017 Administered SOCIAL HISTORY Never Assessed REASON FOR VISIT sinus infection/left ear pain [facility] VITAL SIGNS Height 66 in 2017-03-31 Weight 231.8 lbs 2017-03-31 Temperature 98.3 degrees Fahrenheit 2017-03-31 Heart Rate 84 bpm 2017-03-31 Respiratory Rate 18 2017-03-31 BMI 37.41 kg/m2 2017-03-31 Blood pressure systolic 110 mmHg 2017-03-31 Blood pressure diastolic 80 mmHg 2017-03-31 MEDICATIONS Medication Instructions Dosage Frequency Start Date End Date Duration Status Tessalon Perles 100 mg Orally 3 times a day 1 capsule as needed 8h Feb, Active Augmentin 875-125 MG Orally every 12 hrs 1 tablet 12h Mar,Mar 10 day(s) Active Metoprolol Tartrate 50 MG Orally Once a day 1 tablet 24h Active Premarin 0.3 MG Orally Once a day 1 tablet 24h Nov, 30 day(s) Active Amoxicillin 500 mg Orally 3 times a day 1 capsule 8h Feb, Mar, 14 days Active RESULTS No Results PROCEDURES Procedure Date Ordered Result Body Site SOLUMEDROL (UP TO 125 MG) Mar 31, 2017 THER/PROPH/DIAG INJ, SC/IM Mar 31, 2017 INSTRUCTIONS MEDICATIONS ADMINISTERED No Known Medications MEDICAL [...]
--- OUTSIDE RECORDS SUMMARY | 2018-09-21 05:56 | XMS REPORT ---
Author Author Rufino DASIA Organization [facility] Address [address] [place] [address] Care Team Providers Care Compressor Operator Adjuster Name Role Phone celesteDASIA Drew Unavailable PROBLEMS Type Condition ICD9-CM Code [id number] Code Onset Dates Condition Status SNOMED Code Problem Atherosclerosis of coronary artery of lime heart without angina pectoris, unspecified vessel or lesion type I25.10 Active 405532926 Problem Acquired hypothyroidism E03.9 Active 164772487 Problem Wellness examination Z00.00 Active 470960819 Problem HTN (hypertension) I10 Active 31834067 Problem Bipolar depression F31.30 Active 96951441 Problem Pure hypercholesterolemia E78.00 Active 039503258 Problem Bladder spasms N32.89 Active 709281194 Problem Menopausal symptoms N95.1 Active 11900452 Problem Lumbago with sciatica, right side M54.41 Active 093770853 Problem Lumbago with sciatica, left side M54.42 Active 782376530 Problem Gastroesophageal reflux disease without esophagitis K21.9 Active 542790465 Problem Pain in thoracic spine M54.6 Active [id number] ALLERGIES No Information ENCOUNTERS Encounter Location Date Diagnosis [facility] [id number] [place] [address]40 -2965 Jul, Influenza-like illness R69 [facility] [id number] [place] [address] 46025 -2148 Mar, Acute recurrent maxillary sinusitis J01.01 [facility] [id number] [place] [address] 14833- 9228 Feb, Pelvic pain R10.2 [facility] [id number] [place] [address] 38928 -3160 Feb, Acute recurrent maxillary sinusitis J01.01 [place] [id number] [place] [address] 11206- 1589 17 Feb, 2017 Cyst of left ovary N83.202 [place] [id number] [place] [address] 40157- 6503 10 Feb, 2017 LLQ pain R10.32 [place] [address] 16473- 1965 09 Feb, 2017 Left lower quadrant pain R10.32 [facility] [place] [id number] [place] [address] 64930 -8106 Jan, [facility] [place] [address] 72614 -1689 11 Jan, 2017 Bladder spasms N32.89 [place] [address] 15162- 7034 Nov, Gastroesophageal reflux disease without esophagitis K21.9 ; HTN (hypertension) I10 ; Bipolar depression F31.30 ; Atherosclerosis of coronary artery of lime heart without angina pectoris, unspecified vessel or lesion type I25.10 ; Acquired hypothyroidism E03.9 and Menopausal symptoms N95.1 [place] [id number] [place] [address] 34656- 6134 Oct, Pain in thoracic spine M54.6 ; Bipolar depression F31.30 ; HTN (hypertension) I10 ; Atherosclerosis of coronary artery of lime heart without angina pectoris, unspecified vessel or lesion type I25.10 ; Acquired hypothyroidism E03.9 and Gastroesophageal reflux disease without esophagitis K21.9 [place] [id number] [place] [address] 53428- 8017 Oct, Pain in thoracic spine M54.6 [facility] [place] [id number] [place] [address] 40094 -1257 September, Sore throat J02.9 ; Dysuria R30.0 ; Strep throat J02.0 and Acute cystitis with hematuria N30.01 [place] [address] [place] [id number] [place] [address] 5470 September, Cervicalgia M54.2 and Pain in thoracic spine M54.[address] [address]40- 5393 Aug, [address] 40381- 5618 Aug, High risk bisexual behavior Z72.53 and Acute vaginitis N76.[address] 30604- 6755 May, Internal hemorrhoids K64.8 ; Lower abdominal pain R10.30 ; HTN (hypertension) I10 ; Bipolar depression F31.30 ; Hypercholesteremia E78.0 and Other hyperlipidemia E78.[address] 69809- 8395 Apr, Hypercholesteremia E78.0 [facility] [address] 835[address] -0079 Apr, Dysuria R30.0 ; Lumbago with sciatica, left side M54.42 and Lumbago with sciatica, right side M54.41 [place] [id number] [place] [address] 67759- 9053 Apr, HTN (hypertension) I10 ; Hypercholesteremia E78.0 ; Bipolar depression F31.30 ; Atherosclerosis of coronary artery of lime heart without angina pectoris, unspecified vessel or lesion type I25.10 ; Wellness examination Z00.00 ; Other hyperlipidemia E78.4 ; Acquired hypothyroidism E03.9 and Other viral warts B07.8 [facility] [address] [address]3698 Feb, Encounter for immunization Z23 [facility] [address] 16032 -3013 27 Jan, 2016 Bronchitis J40 and Sore throat J02.9 [facility] [place] [id number] [place] [address] 27035 -9575 07 Jan, 2016 URI, acute J06.9 [place] [address] 58780- 0505 September, Other hyperlipidemia E78.4 [place] [id number] [place] [address] 54249- 9767 September, HTN (hypertension) I10 ; Hypercholesteremia E78.0 ; Bipolar depression F31.30 ; Atherosclerosis of coronary artery of lime heart without angina pectoris, unspecified vessel or lesion type I25.10 ; Acute recurrent maxillary sinusitis J01.01 and Wellness examination Z00.00 [facility] [place] [id number] [place] [address] 07673 -7619 Aug, Acute allergic serous otitis media of both ears H65.113 and Acute sinusitis J01.90 [place] [address] 19683- 3864 Jul, Encounter for PPD test Z11.1 [facility] [place] [id number] [place] [address] 76877 -6881 May, Acute bacterial sinusitis J01.90 [place] [id number] [place] [address] 04984- 8135 May, [place] [id number] [place] [address] 58800- 8643 28 Apr, 2015 [place] [address] 94425- 1507 08 Apr, 2015 RUQ pain R10.11 and Exposure to strep throat Z20.818 [place] [address] 61028- 9003 17 Mar, 2015 Right upper quadrant abdominal pain R10.11 [place] [id number] [place] [address] 52303- 2380 14 Mar, 2015 Encounter for immunization Z23 [place] [address] [place] [address]- 8110 Mar, Dysuria R30.0 [facility] [address] 78673- 3249 Feb, [facility] [address] 10956- 3468 Feb, Right upper quadrant pain R10.11 and Hematuria R31.9 [facility] [address] 23760- 4372 Jan, RUQ pain 789.01 and Obesity 278.00 [place] [address] 33485- 8356 Dec, [facility] [address] 76676- 4810 Dec, [facility] [address] 21655- 2186 Nov, Edema 782.3 and Gastritis 535.50 [facility] [id number] [place] [address] 90366- 5423 Nov, Hypertension 401.9 [facility] [id number] [place] [address] 40682- 0777 Nov, [facility] [id number] [place] [address] 24662- 9614 Nov, Edema 782.3 [facility] [id number] [place] [address] 70647- 3406 Nov, [facility] [id number] [place] [address] 73518- 0441 Nov, Hypertension 401.9 ; Hyperlipemia 272.4 ; Edema of lower extremity 782.3 and CAD (coronary artery disease) 414.00 [facility] [id number] [place] [address] 02356- 5186 Oct, Edema 782.3 [facility] [address] [address] [place] [address] 9733 Oct, [facility] [address] [address] 8499 Oct, Urinary incontinence 788.30 ; Weight gain due to medication 783.9 ; Status post foot surgery V45.89 and Bronchitis 490 [facility] [address] [address] 3127 September, Routine physical examination V70.0 [facility] [id number] [place] [address] 53698- 2207 Aug, Breast cancer screening V76.10 [facility] [id number] [place] [address] 96182- 7798 Aug, [facility] [address] [address]- 0181 Aug, [facility] [id number] [place] [address] 31883- 2335 Jul, [facility] [address] [address]- 0640 Jul, [facility] [address] [address]- 5682 Jul, [facility] [address] [address]- 4037 Jul, [facility] [address] [address]- 1396 Jul, [facility] [address] [address]- 3505 Jul, [facility] [address] 5741 Jul, [facility] [address] [address]- 2676 Jul, [facility] [id number] [address]- 0273 May, [facility] [place] [facility] [address] [id number] [place] [address]- 6698 May, [facility] [place] [facility] [address] [id number] [place] [address]- 8190 May, [facility] [place] [facility] [address] [facility] [id number] [place] [address]- 3384 May, [facility] [place] [facility] [address] [id number] [place] [address]- 1934 Apr, [facility] [place] [facility] [address] [id number] [place] [address]- 0347 Apr, [facility] [place] [facility] [address] [id number] [place] [address]- 3839 Apr, [facility] [place] [facility] [address] [facility] [id number] [place] [address]- 7379 Apr, [facility] [place] [facility] [address] [id number] [place] [address]- 9139 Apr, [facility] [place] [facility] [address] [facility] [id number] [place] [address]- 2348 Apr, [facility] [place] [facility] [address] [facility] [id number] [place] [address]- 2469 Mar, [facility] [place] [facility] [address] [id number] [place] [address]- 2196 Mar, [facility] [place] [facility] [address] [id number] [address]- 1311 Mar, [facility] [place] [facility] [address] [id number] [place] [address]- 1336 Mar, [facility] [place] [facility] [address] [facility] [id number] [place] [address]- 4577 Mar, [facility] [place] [facility] [address] [facility] [id number] [place] [address]- 1214 Mar, [facility] [place] [facility] [address] [id number] [place] [address]- 4755 14 Feb, 2014 [facility] [place] [facility] [address] [id number] [place] [address]- 7155 14 Feb, 2014 [facility] [place] [facility] [address] [id number] [place] [address]- 6113 10 Feb, 2014 [facility] [place] [facility] [address] [id number] [place] [address]- 1274 10 Feb, 2014 [facility] [place] [facility] [address] [id number] [place] [address]- 7423 06 Feb, 2014 [facility] [place] [facility] [address] [id number] [place] [address]- 6598 06 Feb, 2014 [facility] [place] [facility] [address] [id number] [place] [address]- 2207 19 Jan, 2014 [facility] [place] [facility] [address] [id number] [place] [address]- 7100 19 Jan, 2014 [facility] [place] [facility] [address] [id number] [place] [address]- 3672 12 Jan, 2014 [facility] [place] [facility] [address] [id number] [place] [address]- 8338 12 Jan, 2014 [facility] [place] [facility] [address] [id number] [place] [address]- 9484 04 Jan, 2014 [facility] [place] [facility] [address] [id number] [place] [address]- 8748 04 Jan, 2014 [facility] [place] [facility] [address] [id number] [place] [address]- 0883 Dec, [facility] [place] [facility] [address] [id number] [place] [address]- 7954 Dec, [facility] [place] [facility] [address] [id number] [place] [address]- 8296 Dec, [facility] [place] [facility] [address] [id number] [place] [address]- 8838 Dec, [facility] [place] [facility] [address] [id number] [place] [address]- 2652 Dec, [facility] [place] [facility] [address] [id number] [place] [address]- 0267 Dec, [facility] [place] [facility] [address] [id number] [place] [address]- 3687 Dec, [facility] [place] [facility] [address] [id number] [place] [address]- 3065 Dec, [facility] [place] [facility] [address] [id number] [place] [address]- 5136 Nov, [facility] [place] [facility] [address] [id number] [place] [address]- 4113 Nov, [facility] [place] [facility] [address] [id number] [place] [address]- 8552 Nov, [facility] [place] [facility] [address] [id number] [place] [address]- 4132 Nov, [facility] [place] [facility] [address] [id number] [place] [address]- 9622 Nov, [facility] [place] [facility] [address] [id number] [place] [address]- 5132 Nov, [facility] [place] [facility] [address] [id number] [place] [address]- 4674 Oct, [facility] [place] [facility] [address] [id number] [place] [address]- 1282 Oct, [facility] [place] [facility] [address] [id number] [place] [address]- 7805 Oct, [facility] [place] [facility] [address] [id number] [place] [address]- 3091 Oct, [facility] [place] [facility] [address] [id number] [place] [address]- 7659 Oct, [facility] [place] [facility] [address] [id number] [place] [address]- 4385 Oct, [facility] [place] [facility] [address] [id number] [place] [address]- 3200 September, [facility] [place] [facility] [address] [id number] [place] [address]- 8143 September, [facility] [place] [facility] [address] [id number] [place] [address]- 9137 Aug, [facility] [place] [facility] [address] [id number] [place] [address]- 4654 Aug, [facility] [place] [facility] [address] [id number] [place] [address]- 3994 Jul, [facility] [place] [facility] [address] [id number] [place] [address]- 1666 Jul, [facility] [place] [facility] [address] [facility] [id number] [place] [address]- 6518 Jul, [facility] [place] [facility] [address] [id number] [place] [address]- 5335 Jul, [facility] [place] [facility] [address] [id number] [place] [address]- 4592 Jul, [facility] [place] [facility] [address] [facility] [id number] [place] [address]- 7764 Jul, [facility] [place] [facility] [address] [id number] [place] [address]- 8853 Jul, [facility] [place] [facility] [address] [id number] [place] [address]- 6718 Jul, [facility] [place] [facility] [address] [id number] [place] [address]- 1753 May, [facility] [place] [facility] [address] [facility] [id number] [place] [address]- 9656 May, [facility] [place] [facility] [address] [facility] [id number] [place] [address]- 8787 Apr, [facility] [address] [id number] [place] [address]- 5929 Apr, [facility] [place] [facility] [address] [id number] [place] [address]- 7185 Apr, [facility] [place] [facility] [address] [id number] [place] [address]- 8405 16 Apr, 2013 [facility] [place] [facility] [address] [id number] [place] [address]- 3218 12 Apr, 2013 [facility] [place] [facility] [address] [id number] [place] [address]- 8424 Apr, [facility] [place] [facility] [address] [id number] [place] [address]- 3996 Apr, [facility] [place] [facility] [address] [id number] [place] [address]- 2220 Apr, [facility] [place] [facility] [address] [id number] [place] [address]- 3857 Apr, [facility] [place] [facility] [address] [id number] [place] [address]- 2659 Mar, [facility] [place] [facility] [address] [id number] [place] [address]- 2900 Mar, [facility] [place] [facility] [address] [id number] [place] [address]- 4746 Mar, [facility] [place] [facility] [address] [id number], [place] [address]- 4013 Mar, [facility] [place] [facility] [address] [id number] [place] [address]- 1554 Feb, [facility] [place] [facility] [address] [id number] [place] [address]- 3122 Feb, [facility] [place] [facility] [address] [id number] [place] 8636 Jan, [facility] [place] [facility] [address] [id number] [place] [address]- 6287 Dec, [facility] [address] [id number] [place] [address]- 9384 Dec, [facility] [place] [facility] [address] [id number] [place] [address]- 9645 Dec, [facility] [address] [id number] [place] [address]- 8559 Nov, [facility] [place] [facility] [address] [id number] [place] [address]- 2190 Nov, [facility] [place] [facility] [address] [id number] [place] [address]- 8585 Nov, [facility] [place] [facility] [address] [id number] [place] [address]- 2497 Oct, [facility] [address] [id number] [place] [address]- 5856 Aug, [facility] [address] [id number] [place] [address]- 7034 Jul, [facility] [place] [facility] [address] [id number] [place] [address]- 5913 Jul, [facility] [place] [facility] [address] [id number] [place] [address]- 3259 Jul, [facility] [place] [facility] [address] [id number] [place] [address]- 3266 Jul, [facility] [place] [facility] [address] [id number] [place] [address] 2548 Jul, [facility] [place] [facility] [address] [id number] [place] [address]- 4904 28 Jul, 2012 [facility] [place] [facility] [address] [id number] [place] [address]- 8906 27 Jul, 2012 [facility] [place] [facility] [address] [id number] [place] [address]- 3085 14 Jul, 2012 [facility] [place] [facility] [address] [id number] [place] [address]- 7395 07 Jul, 2012 [facility] [address] [id number] [place] [address]- 3396 04 Jul, 2012 [facility] [address] [id number] [place] [address]- 6223 04 Jul, 2012 [facility] [place] [facility] [address] [id number] [place] [address]- 6724 Jul, [facility] [address] [id number] [place] [address]- 7361 Jul, [facility] [address] [id number] [place] [address]- 0245 May, [facility] [address] [id number] [place] [address]- 8126 May, [facility] [address] [id number] [place] [address]- 6997 May, [facility] [address] [id number] [place] [address]- 5110 May, [facility] [address] [id number] [place] [address]- 4685 May, [facility] [address] [id number] [place] [address]- 0083 May, [facility] [address] [id number] [place] [address]- 6447 May, [facility] [place] [facility] [address] [id number] [place] [address]- 7431 May, [facility] [place] [facility] [address] [id number] [place] [address]- 3872 Apr, [facility] [place] [facility] [address] [id number] [place] [address]- 2362 Apr, [facility] [place] [facility] [address] [id number] [address]115 Apr, [facility] [address] [address]93 Apr, [facility] [id number] [address] Apr, [facility] [id number] [address] Apr, [facility] [id number] [address] Apr, [facility] [id number] [place] [address] Apr, [facility] [id number] [place] [address]- [address] Apr, [facility] [id number] [place] [address] Apr, [facility] [id number] [address] Apr, [facility] [id number] [address] Mar, [facility] [id number] [address] Mar, [facility] [id number], [place] [address] Mar, [facility] [id number] [address] Mar, [facility] [id number] [address] Feb, [facility] [id number], [place] [address] Feb, IMMUNIZATIONS No Known Immunizations SOCIAL HISTORY Never Assessed REASON FOR VISIT PLAN OF CARE VITAL SIGNS MEDICATIONS No Known Medications RESULTS No Results PROCEDURES No Known [...]
--- OUTSIDE RECORDS SUMMARY | 2018-09-21 05:57 | XMS REPORT ---
Author Author CINDY FRANKS Organization [facility] Address [address] [place] [address] Care Team Providers Care Group Work Program Director Name Role Phone CINDY FRANKS Unavailable PROBLEMS Type Condition ICD9-CM Code NXD36-LV Code Onset Dates Condition Status SNOMED Code Problem Atherosclerosis of coronary artery of [place]' heart without angina pectoris, unspecified vessel or lesion type I25.10 Active 319883512 Problem Acquired hypothyroidism E03.9 Active 316827063 Problem Wellness examination Z00.00 Active 908350593 Problem HTN (hypertension) I10 Active 25314105 Problem Bipolar depression F31.30 Active 63739897 Problem Pure hypercholesterolemia E78.00 Active 708477136 Problem Bladder spasms N32.89 Active 163376173 Problem Menopausal symptoms N95.1 Active 78508867 Problem Lumbago with sciatica, right side M54.41 Active 786325948 Problem Lumbago with sciatica, left side M54.42 Active 599714626 Problem Gastroesophageal reflux disease without esophagitis K21.9 Active 815938661 Problem Pain in thoracic spine M54.6 Active [id number] ALLERGIES Substance Reaction Event Type Date Status Prednisone aggitation Drug Allergy Jan, Active Plastic Tape Unknown Non Drug Allergy Jan, Active ENCOUNTERS Encounter Location Date Diagnosis [facility] [address] [id number], [place] [address] Jul, Influenza-like illness R69 [facility] [address], [place] [address] Mar, Acute recurrent maxillary sinusitis J01.01 [facility] [place] [address] [address] Feb, Pelvic pain R10.2 [facility] [id number] [place] [address] Feb, Acute recurrent maxillary sinusitis J01.01 [place] [id number] [place] [address] 17 Feb, 2017 Cyst of left ovary N83.202 [place] [address] [address] 10 Feb, 2017 LLQ pain R10.[address] [address] 09 Feb, 2017 Left lower quadrant pain R10.32 [facility] [address] [address] 11 Jan, 2017 [facility] [place] [address] [address] 11 Jan, 2017 Bladder spasms N32.[address] [address] Nov, Gastroesophageal reflux disease without esophagitis K21.9 ; HTN (hypertension) I10 ; Bipolar depression F31.30 ; Atherosclerosis of coronary artery of [place]' heart without angina pectoris, unspecified vessel or lesion type I25.10 ; Acquired hypothyroidism E03.9 and Menopausal symptoms N95.1 [place] [id number] [place] [address] Oct, Pain in thoracic spine M54.6 ; Bipolar depression F31.30 ; HTN (hypertension) I10 ; Atherosclerosis of coronary artery of [place]' heart without angina pectoris, unspecified vessel or lesion type I25.10 ; Acquired hypothyroidism E03.9 and Gastroesophageal reflux disease without esophagitis K21.9 [place] [id number] [place] [address] Oct, Pain in thoracic spine M54.6 [facility] [id number] [place] [address] September, Sore throat J02.9 ; Dysuria R30.0 ; Strep throat J02.0 and Acute cystitis with hematuria N30.[address] [address] September, Cervicalgia M54.2 and Pain in thoracic spine M54.6 [place] [address] [address] Aug, [address] [address] Aug, High risk bisexual behavior Z72.53 and Acute vaginitis N76.[address] [address] May, Internal hemorrhoids K64.8 ; Lower abdominal pain R10.30 ; HTN (hypertension) I10 ; Bipolar depression F31.30 ; Hypercholesteremia E78.0 and Other hyperlipidemia E78.[address] [address] Apr, Hypercholesteremia E78.0 [facility] [address] [address] Apr, Dysuria R30.0 ; Lumbago with sciatica, left side M54.42 and Lumbago with sciatica, right side M54.[address] [address] Apr, HTN (hypertension) I10 ; Hypercholesteremia E78.0 ; Bipolar depression F31.30 ; Atherosclerosis of coronary artery of [place]' heart without angina pectoris, unspecified vessel or lesion type I25.10 ; Wellness examination Z00.00 ; Other hyperlipidemia E78.4 ; Acquired hypothyroidism E03.9 and Other viral warts B07.8 [facility] IN [address] [address] Feb, Encounter for immunization Z23 [facility] IN [address] [address] 27 Sep, 2016 Bronchitis J40 and Sore throat J02.9 [facility] IN [facility] [address] [address] 07 Jan, 2016 URI, acute J06.9 [place] [address] [address] September, Other hyperlipidemia E78.4 [place] [address] [address] September, HTN (hypertension) I10 ; Hypercholesteremia E78.0 ; Bipolar depression F31.30 ; Atherosclerosis of coronary artery of [place]' heart without angina pectoris, unspecified vessel or lesion type I25.10 ; Acute recurrent maxillary sinusitis J01.01 and Wellness examination Z00.00 [facility] [place] [address] [address] Aug, Acute allergic serous otitis media of both ears H65.113 and Acute sinusitis J01.90 [place] [address] [address] Jul, Encounter for PPD test Z11.1 [facility] [address] [address] May, Acute bacterial sinusitis J01.90 [place] [id number] [place] [address] May, [place] [address] [address] Apr, [place] [address] [address] 08 Apr, 2015 RUQ pain R10.11 and Exposure to strep throat Z20.818 [place] [address] [address] 17 Mar, 2015 Right upper quadrant abdominal pain R10.11 [place] [address] [address] 14 Mar, 2015 Encounter for immunization Z23 [facility] [place] [id number] [place] [address] Mar, Dysuria R30.0 [place] [address] [address] Feb, [place] [address] [address] Feb, Right upper quadrant pain R10.11 and Hematuria R31.9 [place] [address] [address] Jan, RUQ pain 789.01 and Obesity 278.00 [place] [address] [address]- [address] Dec, [place] [address] [address] Dec, [place] [address] [address] Nov, Edema 782.3 and Gastritis 535.50 [place] [address] 8[address]- 21[address] Nov, Hypertension 401.9 [place] [address] 7[address]- [address] Nov, [place] [address] [address] Nov, Edema 782.3 [place] [address] [address]- 1030 Nov, [place] [address] [address] Nov, Hypertension 401.9 ; Hyperlipemia 272.4 ; Edema of lower extremity 782.3 and CAD (coronary artery disease) 414.00 [place] [address] 00[address] 5236 Oct, Edema 782.3 [facility] [place] [address], [place] [address] Oct, [facility] [place] [id number] [place] [address] Oct, Urinary incontinence 788.30 ; Weight gain due to medication 783.9 ; Status post foot surgery V45.89 and Bronchitis 490 [facility] [place] [id number] [place] [address] September, Routine physical examination V70.0 [facility] [place] [id number] [place] [address] Aug, Breast cancer screening V76.10 [facility] [place] [address], [place] [address] Aug, [facility] [place] [id number] [place] [address] 9260 Aug, [facility] [place] [address], [place] [address] Jul, [facility] [place] [address], [place] [address] Jul, [facility] [place] [address], [place] [address] Jul, [facility] [place] [address], [place] [address] Jul, [facility] [place] [address], [place] [address] Jul, [facility] [place] [address], [place] [address] Jul, [facility] [place] [address], [place] [address] Jul, [facility] [place] [address] [address] Jul, [facility] [address] [id number] [place] [address] May, [facility] [place] [facility] [address] [id number] [place] [address]- 78[address] May, [facility] [place] [facility] [address] [id number] [place] [address] May, [facility] [place] [facility] [address] [id number] [place] [address]- 2268 May, [facility] [place] [facility] [address] [id number] [place] [address]- 8954 Apr, [facility] [place] [facility] [address] [id number] [place] [address] Apr, [facility] [place] [facility] [address] [id number] [place] [address]- 6332 Apr, [facility] [place] [facility] [address] [id number] [place] [address]- 7838 Apr, [facility] [place] [facility] [address] [id number] [place] [address]- 6[address] Apr, [facility] [place] [facility] [address] [id number] [place] [address]- 8579 Apr, [facility] [place] [facility] [address] [id number] [place] [address] 83[address] Mar, [facility] [place] [facility] [address] [id number], [place] [address] Mar, [facility] [place] [facility] [address] [id number] [place] [address]- 238[address] Mar, [facility] [place] [facility] [address] [id number] [place] [address]- 9485 Mar, [facility] [place] [facility] [address] [id number] [place] [address]- 1686 Mar, [facility] [place] [facility] [address] [id number], [place] [address] Mar, [facility] [place] [facility] [address] [id number] [place] [address]- 0796 Feb, [facility] [place] [facility] [address] [id number] [place] [address]- 5416 Feb, [facility] [place] [facility] [address] [id number] [place] [address]- 4893 Feb, [facility] [place] [facility] [address] [id number] [place] [address]- 5964 Feb, [facility] [place] [facility] [address] [id number] [place] [address]- 8297 Feb, [facility] [place] [facility] [address] [id number] [place] [address]- 0456 Feb, [facility] [place] [facility] [address] [id number] [place] [address]- 7326 Jan, [facility] [place] [facility] [address] [id number] [place] [address]- 3521 Jan, [facility] [place] [facility] [address] [id number] [place] [address]- 1411 Jan, [facility] [place] [facility] [address] [id number] [place] [address]- 4869 Jan, [facility] [place] [facility] [address] [id number] [place] [address]- 5118 Jan, [facility] [place] [facility] [address] [id number] [place] [address]- 4086 Jan, [facility] [place] [facility] [address] [id number] [place] [address]- 6180 Dec, [facility] [place] [facility] [address] [id number] [place] [address]- 5935 Dec, [facility] [place] [facility] [address] [id number] [place] [address]- 8850 Dec, [facility] [place] [facility] [address] [id number] [place] [address]- 7776 Dec, [facility] [place] [facility] [address] [id number] [place] [address]- 8531 Dec, [facility] [place] [facility] [address] [id number] [place] [address]- 4359 Dec, [facility] [place] [facility] [address] [id number] [place] [address]- 6055 Dec, [facility] [place] [facility] [address] [id number] [place] [address]- 8838 Dec, [facility] [place] [facility] [address] [id number] [place] [address]- 9067 Nov, [facility] [place] [facility] [address] [id number] [place] [address]- 4694 Nov, [facility] [place] [facility] [address] [id number] [place] [address]- 9480 Nov, [facility] [place] [facility] [address] [id number] [place] [address]- 3136 Nov, [facility] [place] [facility] [address] [id number] [place] [address]- 7592 Nov, [facility] [place] [facility] [address] [id number] [place] [address]- 7359 Nov, [facility] [place] [facility] [address] [id number] [place] [address]- 2031 Oct, [facility] [place] [facility] [address] [id number] [place] [address]- 3082 Oct, [facility] [place] [facility] [address] [id number] [place] [address]- 6799 Oct, [facility] [place] [facility] [address] [id number] [place] [address]- 3496 Oct, [facility] [place] [facility] [address] [id number] [place] [address]- 3018 Oct, [facility] [place] [facility] [address] [id number] [place] [address] Oct, [facility] [place] [facility] [address] [id number] [place] [address]- 6062 September, [facility] [place] [facility] [address] [id number] [place] [address]- 3452 September, [facility] [place] [facility] [address] [id number] [place] [address]- 9103 Aug, [facility] [place] [facility] [address] [id number] [place] [address]- 3697 Aug, [facility] [place] [facility] [address] [id number] [place] [address]- 4094 Jul, [facility] [place] [facility] [address] [id number] [place] [address]- 9325 Jul, [facility] [place] [facility] [address] [id number] [place] [address]- 2965 Jul, [facility] [place] [facility] [address] [id number] [place] [address]- 1237 Jul, [facility] [place] [facility] [address] [id number] [place] [address]- 7346 Jul, [facility] [place] [facility] [address] [id number] [place] [address]- 4919 Jul, [facility] [place] [facility] [address] [id number] [place] [address]- 1361 Jul, [facility] [place] [facility] [address] [id number] [place] [address]- 1030 Jul, [facility] [place] [facility] [address] [id number] [place] [address] May, [facility] [place] [facility] [address] [id number] [place] [address] May, [facility] [place] [facility] [address] [id number] [place] [address]- 0303 24 Apr, 2013 [facility] [address] [id number] [place] [address]60 24 Apr, 2013 [facility] [address] [id number] [place] [address] 16 Apr, 2013 [facility] [address] [id number] [place] [address]- 8213 16 Apr, 2013 [facility] [address] [id number] [place] [address]- 9773 12 Apr, 2013 [facility] [address] [id number] [place] [address] Apr, [facility] [address] [id number] [place] [address]- 0238 Apr, [facility] [address] [id number] [place] [address]- 8097 Apr, [facility] [address] [id number] [place] [address]- 4196 Apr, [facility] [address] [id number] [place] [address]- 7261 Mar, [facility] [address] [id number] [place] [address]- 7268 Mar, [facility] [place] [facility] [address] [id number] [place] [address]- 2170 Mar, [facility] [address] [id number] [place] [address]- 2362 Mar, [facility] [place] [facility] [address] [id number] [place] [address]- 5633 29 Feb, 2013 [facility] [place] [facility] [address] [id number] [place] [address]- 4566 29 Feb, 2013 [facility] [place] [facility] [address] [id number] [place] [address]- 5249 Jan, [facility] [address] [id number] [place] [address]- 8352 Dec, [facility] [place] [facility] [address] [id number] [place] [address]- 3130 Dec, [facility] [place] [facility] [address] [id number] [place] [address]- 6998 Dec, [facility] [place] [facility] [address] [id number] [place] [address]- 1098 Nov, [facility] [place] [facility] [address] [id number] [place] [address]- 7815 Nov, [facility] [place] [facility] [address] [id number] [place] [address]- 3981 Nov, [facility] [place] [facility] [address] [id number] [place] [address]- 5822 Oct, [facility] [place] [facility] [address] [id number] [place] [address]- 4866 Aug, [facility] [place] [facility] [address] [id number] [place] [address]- 4472 Jul, [facility] [place] [facility] [address] [id number] [place] [address]- 9995 Jul, [facility] [place] [facility] [address] [id number] [place] [address]- 0061 Jul, [facility] [place] [facility] [address] [id number] [place] [address]- 5655 Jul, [facility] [place] [facility] [address] [id number] [place] [address]- 7245 Jul, [facility] [place] [facility] [address] [id number] [place] [address]- 5898 Jul, [facility] [place] [facility] [address] [id number] [place] [address]- 7097 Jul, [facility] [place] [facility] [address] [id number] [place] [address]- 5698 14 Jul, 2012 [facility] [address] [id number] [place] [address]- 7006 07 Jul, 2012 [facility] [address] [id number] [place] [address] 2546 04 Jul, [address] [facility] [address] [id number] [place] [address] 2546 04 Jul, 2012 [facility] [address] [id number] [place] [address] 254 Jul, [facility] [address] [id number] [place] [address]- [address] Jul, [facility] [address] [id number] [place] [address]- 39[address] May, [facility] [address] [id number] [place] [address]- [address] May, [facility] [address] [id number] [place] [address]- 6946 May, [facility] [address] [id number] [place] [address]- [address] May, [facility] [address] [id number] [place] [address]- [address] May, [facility] [address] [id number] [place] [address] [address], [facility] [address] [id number] [place] [address] 2549 May, [facility] [address] [id number] [place] [address]- [address] May, [facility] [address] [id number] [place] [address] 254 Apr, [facility] [address] [id number] [place] [address] Apr, [facility] [place] [address] [facility] [id number], [place] [address] Apr, [facility] [address] [facility] [id number], [place] [address] Apr, [facility] [address] [facility] [id number], [place] [address] Apr, [facility] [address] [facility] [id number] [address] Apr, [facility] [address] [facility] [id number] [place] [address] Apr, [facility] [address] [facility] [id number], [place] [address] Apr, [facility], [place], [facility] [id number] [address] Apr, [facility], [place], [facility] [id number], [place] [address] Apr, [facility], [place], [facility] [address] [id number], [place] [address] Apr, [facility], [place], [facility] [id number], [place] [address] Mar, [facility], [place], [facility] [id number], [place] [address] Mar, [facility], [place], [facility] [id number], [place] [address] Mar, [facility], [place], [facility] [address] [facility] [id number] [address] Mar, [facility], [place], [facility] [id number], [place] [address] Feb, [facility], [place], [facility] [address] [id number], [place] [address] Feb, IMMUNIZATIONS No Known Immunizations SOCIAL HISTORY Never Assessed REASON FOR VISIT Lower left abd pain- dairrhea x2 weeks- bladder sling feels like bladder is spasming-- no energy and nausea JStrasserRN PLAN OF CARE Activity Details Follow Up prn Reason: VITAL SIGNS Height 66 in 2017-02-08 Weight 241.4 lbs 2017-02-08 Temperature 97.9 degrees Fahrenheit 2017-02-08 Heart Rate 88 bpm 2017-02-08 Respiratory Rate 20 2017-02-08 BMI 38.96 kg/m2 2017-02-08 Blood pressure systolic 120 mmHg 2017-02-08 Blood pressure diastolic 78 mmHg 2017-02-08 MEDICATIONS Medication Instructions Dosage Frequency Start Date End Date Duration Status Metoprolol Tartrate 50 MG Orally Once a day 1 tablet 24h Active Ditropan XL 5 MG Orally Once a day 1 tablet 24h Jan, Feb, 30 day(s) Active Premarin 0.3 MG Orally Once a day 1 tablet 24h Nov, 30 day(s) Active RESULTS No Results PROCEDURES Procedure Date Ordered Result Body Site URINALYSIS, AUTO, W/O SCOPE Feb 08, 2017 INSTRUCTIONS MEDICATIONS ADMINISTERED No Known Medications [...]
--- OUTSIDE RECORDS SUMMARY | 2018-09-21 06:01 | XMS REPORT | Continuity of Care Document ---
Author Organization Unknown Address Unknown Allergies Active Description Code Type Severity Reaction Onset Reported/Identified Relationship to Patient Clinical Status Yes plastic tape OA N/A N/A 06/20/2012 Yes prednisone Drug Allergy N/A N/A 06/20/2012 Yes plastic tape OA 06/20/2012 Yes prednisone Drug Allergy 06/20/2012 Yes STEROIDS STEROIDS Mild N/A 04/08/2014 Yes tomato [id number] Drug Allergy Unknown HIVES 05/17/2014 Yes tomato [...] 296.52 MO BIPOLAR I DEPRESSED MODERATE 04/08/2012 MARIAH SMITH, BLAYNE Nowak 296.52 MO BIPOLAR I DEPRESSED MODERATE 04/08/[address] BETTS 296.52 MO BIPOLAR I DEPRESSED MODERATE 04/08/2012 ALFONSO NIELSEN MD 296.52 MO BIPOLAR I DEPRESSED MODERATE 04/08/2012 PETRA STOLL, MARSHAL S 296.52 MO BIPOLAR I DEPRESSED MODERATE 04/08/2012 PETRA STOLL, MARSHAL S 296.52 MO BIPOLAR I DEPRESSED MODERATE 04/08/[address] PK ALPESH 296.52 MO BIPOLAR I DEPRESSED MODERATE 04/08/2012 PEÑA DO, AMARILYS K 296.52 MO BIPOLAR I DEPRESSED MODERATE 04/08/2012 DESHPANDERUBEN STOLL, PK BETTS 296.52 MO BIPOLAR I DEPRESSED MODERATE 04/08/2012 CHARLEE STOLL, PK BETTS 296.52 MO BIPOLAR I [...] PETRA STOLL MARSHAL S 272.0 HYPERCHOLESTEROLEMIA 05/02/2012 SUNNY LAMBERT APRNNDA S 305.1 NONDEPENDENT TOBACCO USE DISORDER 05/02/2012 NEREIDA JONES DO 256.4 POLYCYSTIC OVARIAN SYNDROME 05/02/2012 NEREIDA JONES DO F 272.0 HYPERCHOLESTEROLEMIA 05/02/2012 NEREIDA JONES DO 305.1 [...] POLYCYSTIC OVARIAN SYNDROME 05/02/2012 NEREIDA JONES DO F 272.0 HYPERCHOLESTEROLEMIA 05/02/2012 NEREIDA JONES DO 305.1 NONDEPENDENT TOBACCO USE DISORDER 05/02/2012 NEREIDA JONES DO 256.4 POLYCYSTIC OVARIAN SYNDROME 05/02/2012 NEREIDA JONES DO F 272.0 HYPERCHOLESTEROLEMIA 05/02/2012 NEREIDA JONES DO F 305.1 NONDEPENDENT TOBACCO USE DISORDER 05/02/2012 ESTRELLA [...] 05/02/2012 NEREIDA JONES DO 272.0 HYPERCHOLESTEROLEMIA 05/02/2012 WERDER DO, NEREIDA F 305.1 NICOTINE DEPENDENCE 05/02/2012 256.4 POLYCYSTIC OVARIAN [...] PETRA STOLL, MARSHAL S 272.0 HYPERCHOLESTEROLEMIA 05/02/2012 PETRACOTY STOLL, MARHSAL S 305.1 NICOTINE DEPENDENCE 05/02/2012 PK DESHPANDE APRN 256.4 POLYCYSTIC OVARIAN SYNDROME 05/02/2012 PK DESHPANDE APRN 272.0 HYPERCHOLESTEROLEMIA 05/02/2012 PK DESHPANDE APRN 305.1 NICOTINE DEPENDENCE 05/02/2012 PEÑA DO, AMARILYS K 256.4 POLYCYSTIC OVARIAN SYNDROME 05/02/2012 PEÑA DO, AMARILYS K 272.0 HYPERCHOLESTEROLEMIA 05/02/2012 PEÑA DO, AMARILYS K 305.1 NICOTINE DEPENDENCE 05/02/2012 CHARLEE STOLL, PK BETTS 256.4 POLYCYSTIC OVARIAN SYNDROME 05/02/2012 DESHPANDE MACHINE STAKER, PK BETTS 272.0 HYPERCHOLESTEROLEMIA 05/02/2012 CHARLEE WEBBN, PK BETTS 305.1 NICOTINE DEPENDENCE 05/02/2012 DESHPANDE MACHINE STAKER, PK BETTS 256.4 POLYCYSTIC OVARIAN SYNDROME 05/02/2012 DESHPANDE MACHINE STAKER, PK BETTS 272.0 HYPERCHOLESTEROLEMIA 05/02/2012 CHARLEE WEBBN, PK BETTS 305.1 NICOTINE DEPENDENCE 05/02/2012 PETRACOTY STOLL MARSHAL S 256.4 POLYCYSTIC OVARIAN SYNDROME 05/02/2012 [...] DPM, KOLE 305.1 NICOTINE DEPENDENCE 05/02/2012 PETRA STOLL MARSHAL S 256.4 POLYCYSTIC OVARIAN SYNDROME 05/02/2012 PETRA DODIE, MARSHAL S 272.0 HYPERCHOLESTEROLEMIA 05/02/2012 PETRA DODIE, MARSHAL S 305.1 NICOTINE DEPENDENCE 05/02/2012 PETRA MACHINE STAKER, MARSHAL S 256.4 POLYCYSTIC OVARIAN SYNDROME 05/02/2012 PETRA MACHINE STAKER, MARSHAL S 272.0 HYPERCHOLESTEROLEMIA 05/02/2012 PETRA DODIE, MARSHAL S 305.1 NICOTINE DEPENDENCE 05/02/2012 FELIX [...] NEREIDA JONES DO 244.9 HYPOTHYROIDISM 05/05/2012 MYKEL ZAMBRANO, ESTRELLA Ramirez 244.9 HYPOTHYROIDISM 05/05/2012 244.9 HYPOTHYROIDISM 05/05/2012 244.9 HYPOTHYROIDISM 05/05/2012 244.9 HYPOTHYROIDISM 05/05/2012 NEREIDA JONES DO 244.9 HYPOTHYROIDISM 05/05/2012 244.9 HYPOTHYROIDISM 05/05/2012 244.9 HYPOTHYROIDISM 05/05/2012 244.9 HYPOTHYROIDISM 05/05/2012 244.9 HYPOTHYROIDISM 05/05/2012 AMARILYS PEÑA DO 244.9 HYPOTHYROIDISM 05/05/2012 BLAYNE LEMUS DDS 244.9 HYPOTHYROIDISM 05/05/2012 CHARLEE STOLL, PK BETTS 244.9 HYPOTHYROIDISM 05/05/2012 GIA GRIJALVA, ALFONSO 244.9 HYPOTHYROIDISM 05/05/2012 EREN LAMBERT APRNA S 244.9 HYPOTHYROIDISM 05/05/2012 CHARLEE WEBBN, PK BETTS 244.9 HYPOTHYROIDISM 05/05/2012 PEÑA DO, AMARILYS K 244.9 HYPOTHYROIDISM 05/05/2012 DESHPANDE MACHINE STAKER, PK BETTS 244.9 HYPOTHYROIDISM 05/05/2012 CHARLEE WEBBN, PK BETTS 244.9 HYPOTHYROIDISM 05/05/2012 PETRA STOLL, MARSHAL S 244.9 HYPOTHYROIDISM 05/05/2012 PEÑA DO, AMARILYS K 244.9 HYPOTHYROIDISM 05/05/2012 FELIX DPM, KOLE 244.9 [...] APRN S 300.23 AN SOCIAL PHOBIA 05/19/2012 NEREIDA JONES DO 296.80 BIPOLAR DISORDER UNSPECIFIED 05/19/2012 NEREIDA JONES DO 300.23 AN SOCIAL PHOBIA 05/19/2012 NEREIDA JONES DO 296.80 BIPOLAR DISORDER UNSPECIFIED 05/19/2012 NEREIDA JONES DO F 300.23 AN SOCIAL PHOBIA 05/19/2012 ESTRELLA HOGUE PHD 296.80 BIPOLAR DISORDER UNSPECIFIED 05/19/2012 SETRELLA HOGUE PHD 300.23 AN SOCIAL PHOBIA 05/19/2012 296.80 BIPOLAR DISORDER UNSPECIFIED 05/19/2012 300.23 AN SOCIAL PHOBIA 05/19/2012 296.80 BIPOLAR DISORDER UNSPECIFIED 05/19/2012 300.23 AN SOCIAL PHOBIA 05/19/2012 296.80 BIPOLAR DISORDER UNSPECIFIED 05/19/2012 300.23 AN SOCIAL PHOBIA 05/19/2012 NEREIDA JONES DO F 296.80 BIPOLAR DISORDER UNSPECIFIED 05/19/2012 NEREIDA JONES DO F 300.23 AN SOCIAL PHOBIA 05/19/2012 296.80 BIPOLAR DISORDER UNSPECIFIED 05/19/2012 300.23 AN SOCIAL PHOBIA 05/19/2012 296.80 BIPOLAR DISORDER UNSPECIFIED 05/19/2012 300.23 AN SOCIAL PHOBIA 05/19/2012 296.80 BIPOLAR DISORDER UNSPECIFIED 05/19/2012 300.23 AN SOCIAL PHOBIA 05/19/2012 296.80 BIPOLAR DISORDER UNSPECIFIED 05/19/2012 300.23 AN SOCIAL PHOBIA 05/19/2012 PEÑA DOAMARILYS K 296.80 BIPOLAR DISORDER UNSPECIFIED 05/19/2012 PEÑA DOAMARILYS K 300.23 AN SOCIAL PHOBIA 05/19/2012 BLAYNE LEMUS DDS 296.80 BIPOLAR DISORDER UNSPECIFIED 05/19/2012 BLAYNE LEMUS DDS 300.23 AN SOCIAL PHOBIA 05/19/2012 PK DESPHANDE APRN 296.80 BIPOLAR DISORDER UNSPECIFIED 05/19/2012 PK [...] DESHPANDE APRN 300.23 AN SOCIAL PHOBIA 05/19/2012 PEÑA DO, AMARILYS K 296.80 BIPOLAR DISORDER UNSPECIFIED 05/19/2012 PEÑA DO, AMARILYS K 300.23 AN SOCIAL PHOBIA 05/19/2012 DESHPANDE MACHINE STAKER, PK BETTS 296.80 BIPOLAR DISORDER UNSPECIFIED 05/19/2012 DESHPANDE MACHINE STAKER, PK BETTS 300.23 AN SOCIAL PHOBIA 05/19/2012 DESHPANDE MACHINE STAKER, PK BETTS 296.80 BIPOLAR DISORDER UNSPECIFIED 05/19/2012 DESHPANDE MACHINE STAKER, PK BETTS 300.23 AN SOCIAL PHOBIA 05/19/2012 SUNNY LAMBERT APRNNDA S 296.80 BIPOLAR DISORDER UNSPECIFIED 05/19/2012 PETRA [...] DPM, KOLE 300.23 AN SOCIAL PHOBIA 05/19/2012 SUNNY LAMBERT APRNNDA S 296.80 BIPOLAR DISORDER UNSPECIFIED 05/19/2012 PETRA STOLL MARSHAL S 300.23 AN SOCIAL PHOBIA 05/19/2012 SUNNY LAMBERT APRNNDA S 296.80 BIPOLAR DISORDER UNSPECIFIED 05/19/2012 PETRA [...] ERUPTION 06/20/2012 EREN LAMBERT APRNA S V72.31 SENIOR CONTROLS TECHNICIAN EXAM, ROUTINE 06/20/2012 SUNNY LAMBERT APRNNDA S V76.10 BREAST CANCER SCREENING 06/20/2012 SUNNY LAMBERT APRNNDA S V76.2 CERVICAL CANCER SCREENING (PAP SMEAR) 06/20/2012 NEREIDA JONES DO 782.1 RASH AND OTHER NONSPECIFIC SKIN ERUPTION 06/20/2012 NEREIDA JONES DO V72.31 SENIOR CONTROLS TECHNICIAN EXAM, ROUTINE 06/20/2012 NEREIDA JONES DO V76.10 BREAST CANCER SCREENING 06/20/2012 NEREIDA JONES DO V76.2 CERVICAL CANCER SCREENING (PAP SMEAR) 06/20/2012 NEREIDA JONES DO 782.1 RASH AND OTHER NONSPECIFIC SKIN ERUPTION 06/20/2012 NEREIDA JONES DO V72.31 SENIOR CONTROLS TECHNICIAN EXAM, ROUTINE 06/20/2012 NEREIDA JONES DO V76.10 BREAST CANCER SCREENING 06/20/2012 NEREIDA JONES DO V76.2 CERVICAL CANCER SCREENING (PAP SMEAR) 06/20/2012 ESTRELLA HOGUE PHD 782.1 RASH AND OTHER NONSPECIFIC SKIN ERUPTION 06/20/2012 ESTRELLA HOGUE PHD V72.31 SENIOR CONTROLS TECHNICIAN EXAM, ROUTINE 06/20/2012 ESTRELLA HOGUE PHD V76.10 BREAST CANCER SCREENING 06/20/2012 ESTRELLA HOGUE PHD V76.2 CERVICAL CANCER SCREENING (PAP SMEAR) 06/20/2012 782.1 RASH AND OTHER NONSPECIFIC SKIN ERUPTION 06/20/2012 V72.31 SENIOR CONTROLS TECHNICIAN EXAM, ROUTINE 06/20/2012 V76.10 BREAST CANCER SCREENING 06/20/2012 V76.2 CERVICAL CANCER SCREENING (PAP SMEAR) 06/20/2012 782.1 RASH AND OTHER NONSPECIFIC SKIN ERUPTION 06/20/2012 V72.31 SENIOR CONTROLS TECHNICIAN EXAM, ROUTINE 06/20/2012 V76.10 BREAST CANCER SCREENING 06/20/2012 V76.2 CERVICAL CANCER SCREENING (PAP SMEAR) 06/20/2012 782.1 RASH AND OTHER NONSPECIFIC SKIN ERUPTION 06/20/2012 V72.31 SENIOR CONTROLS TECHNICIAN EXAM, ROUTINE 06/20/2012 V76.10 BREAST CANCER SCREENING 06/20/2012 V76.2 CERVICAL CANCER SCREENING (PAP SMEAR) 06/20/2012 NEREIDA JONES DO F 782.1 RASH AND OTHER NONSPECIFIC SKIN ERUPTION 06/20/2012 NEREIDA JONES DO F V72.31 SENIOR CONTROLS TECHNICIAN EXAM, ROUTINE 06/20/2012 KAREN WOLFE NEREIDA F V76.10 BREAST CANCER SCREENING 06/20/2012 KAREN WOLFE NEREIDA F V76.2 CERVICAL CANCER SCREENING (PAP SMEAR) 06/20/2012 782.1 RASH AND OTHER NONSPECIFIC SKIN ERUPTION 06/20/2012 V72.31 SENIOR CONTROLS TECHNICIAN EXAM, ROUTINE 06/20/2012 V76.10 BREAST CANCER SCREENING 06/20/2012 V76.2 CERVICAL CANCER SCREENING (PAP SMEAR) 06/20/2012 782.1 RASH AND OTHER NONSPECIFIC SKIN ERUPTION 06/20/2012 V72.31 SENIOR CONTROLS TECHNICIAN EXAM, ROUTINE 06/20/2012 V76.10 BREAST CANCER SCREENING 06/20/2012 V76.2 CERVICAL CANCER SCREENING (PAP SMEAR) 06/20/2012 782.1 RASH AND OTHER NONSPECIFIC SKIN ERUPTION 06/20/2012 V72.31 SENIOR CONTROLS TECHNICIAN EXAM, ROUTINE 06/20/2012 V76.10 BREAST CANCER SCREENING 06/20/2012 V76.2 CERVICAL CANCER SCREENING (PAP SMEAR) 06/20/2012 782.1 RASH AND OTHER NONSPECIFIC SKIN ERUPTION 06/20/2012 V72.31 SENIOR CONTROLS TECHNICIAN EXAM, ROUTINE 06/20/2012 V76.10 BREAST CANCER SCREENING 06/20/2012 V76.2 CERVICAL CANCER SCREENING (PAP SMEAR) 06/20/2012 AMARILYS PEÑA DO 782.1 RASH AND OTHER NONSPECIFIC SKIN ERUPTION 06/20/2012 AMARILYS PEÑA DO K V72.31 SENIOR CONTROLS TECHNICIAN EXAM, ROUTINE 06/20/2012 AMARILYS PEÑA DO V76.10 BREAST CANCER SCREENING 06/20/2012 AMARILYS PEÑA DO K V76.2 CERVICAL CANCER SCREENING (PAP SMEAR) 06/20/2012 BLAYNE LEMUS DDS 782.1 RASH AND OTHER NONSPECIFIC SKIN ERUPTION 06/20/2012 BLAYNE LEMUS DDS V72.31 SENIOR CONTROLS TECHNICIAN EXAM, ROUTINE 06/20/2012 BLAYNE LEMUS DDS V76.10 BREAST CANCER SCREENING 06/20/2012 BLAYNE LEMUS DDS V76.2 CERVICAL CANCER SCREENING (PAP SMEAR) 06/20/2012 PK DESHPANDE APRN 782.1 RASH AND OTHER NONSPECIFIC SKIN ERUPTION 06/20/2012 PK DESHPANDE APRN V72.31 SENIOR CONTROLS TECHNICIAN EXAM, ROUTINE 06/20/2012 PK DESHPANDE APRN V76.10 BREAST CANCER SCREENING 06/20/2012 PK DESHPANDE APRN V76.2 CERVICAL CANCER SCREENING (PAP SMEAR) 06/20/2012 ALFONSO NIELSEN MD 782.1 RASH AND OTHER NONSPECIFIC SKIN ERUPTION 06/20/2012 ALFONSO NIELSEN MD V72.31 SENIOR CONTROLS TECHNICIAN EXAM, ROUTINE 06/20/2012 ALFONSO NIELSEN MD V76.10 BREAST CANCER SCREENING 06/20/2012 ALFONSO NIELSEN MD V76.2 CERVICAL CANCER SCREENING (PAP SMEAR) 06/20/2012 EREN LAMBERT APRNA S 782.1 RASH AND OTHER NONSPECIFIC SKIN ERUPTION 06/20/2012 MARSHAL LAMBERT APRN S V72.31 SENIOR CONTROLS TECHNICIAN EXAM, ROUTINE 06/20/2012 EREN LAMBERT APRNA S V76.10 BREAST CANCER SCREENING 06/20/2012 EREN LAMBERT APRNA S V76.2 CERVICAL CANCER SCREENING (PAP SMEAR) 06/20/2012 PK DESHPANDE APRN 782.1 RASH AND OTHER NONSPECIFIC SKIN ERUPTION 06/20/2012 PK DESHPANDE APRN V72.31 SENIOR CONTROLS TECHNICIAN EXAM, ROUTINE 06/20/2012 PK DESHPANDE APRN V76.10 BREAST CANCER SCREENING 06/20/2012 PK DESHPANDE APRN V76.2 CERVICAL CANCER SCREENING (PAP SMEAR) 06/20/2012 KIAN PEÑA DOA K 782.1 RASH AND OTHER NONSPECIFIC SKIN ERUPTION 06/20/2012 MARIANA WOLFE AMARILYS K V72.31 SENIOR CONTROLS TECHNICIAN EXAM, ROUTINE 06/20/2012 PEÑA DO AMARILYS K V76.10 BREAST CANCER SCREENING 06/20/2012 MARIANA WOLFE AMARILYS K V76.2 CERVICAL CANCER SCREENING (PAP SMEAR) 06/20/2012 DESHPANDE MACHINE STAKER, PK ALPESH 782.1 RASH AND OTHER NONSPECIFIC SKIN ERUPTION 06/20/[address]BBJ[address] PK BETTS V72.31 SENIOR CONTROLS TECHNICIAN EXAM, ROUTINE 06/20/[address] PK BETTS V76.10 BREAST CANCER SCREENING 06/20/[address] WEBBJ[address] PK BETTS V76.2 CERVICAL CANCER SCREENING (PAP SMEAR) 06/20/[address] WEBBJ[address] PK BETTS 782.1 RASH AND OTHER NONSPECIFIC SKIN ERUPTION 06/20/[address] PK BETTS V72.31 SENIOR CONTROLS TECHNICIAN EXAM, ROUTINE 06/20/[address] WEBBJal[address] PK BETTS V76.10 BREAST CANCER SCREENING 06/20/[address] WEBBJalyn PK BETTS V76.2 CERVICAL CANCER SCREENING (PAP SMEAR) 06/20/2012 EREN LAMBERT APRNA S 782.1 RASH AND OTHER NONSPECIFIC SKIN ERUPTION 06/20/2012 SUNNY LAMBERT APRNNDA S V72.31 SENIOR CONTROLS TECHNICIAN EXAM, ROUTINE 06/20/2012 SUNNY LAMBERT APRNNDA S V76.10 BREAST CANCER SCREENING 06/20/2012 PETRA STOLL MARSHAL S V76.2 CERVICAL CANCER SCREENING (PAP SMEAR) 06/20/2012 PEÑA DO AMARILYS K 782.1 RASH AND OTHER NONSPECIFIC SKIN ERUPTION 06/20/2012 PEÑA DO AMARILYS K V72.31 SENIOR CONTROLS TECHNICIAN EXAM, ROUTINE 06/20/2012 MARIANA WOLFE AMARILYS K V76.10 BREAST CANCER SCREENING 06/20/2012 PEÑA DO AMARILYS K V76.2 CERVICAL CANCER SCREENING (PAP SMEAR) 06/20/2012 FELIX DPM, KOLE 782.1 RASH AND OTHER NONSPECIFIC SKIN ERUPTION 06/20/2012 FELIX DPM, KOLE V72.31 SENIOR CONTROLS TECHNICIAN EXAM, ROUTINE 06/20/2012 FELIX DPM, KOLE V76.10 BREAST CANCER SCREENING 06/20/2012 FELIX DPM, KOLE V76.2 CERVICAL CANCER SCREENING (PAP SMEAR) 06/20/2012 FELIX DPM, KOLE 782.1 RASH AND OTHER NONSPECIFIC SKIN ERUPTION 06/20/2012 FELIX DPM, KOLE V72.31 SENIOR CONTROLS TECHNICIAN EXAM, ROUTINE 06/20/2012 FELIX DPM, KOLE V76.10 BREAST CANCER SCREENING 06/20/2012 FELIX DPM, KOLE V76.2 CERVICAL CANCER SCREENING (PAP SMEAR) 06/20/2012 FELIX DPM, KOLE 782.1 RASH AND OTHER NONSPECIFIC SKIN ERUPTION 06/20/2012 EFLIX DPM, KOLE V72.31 SENIOR CONTROLS TECHNICIAN EXAM, ROUTINE 06/20/2012 FELIX DPM, KOLE V76.10 BREAST CANCER SCREENING 06/20/2012 FELIX DPM, KOLE V76.2 CERVICAL CANCER SCREENING (PAP SMEAR) 06/20/2012 FELIX DPM, KOLE 782.1 RASH AND OTHER NONSPECIFIC SKIN ERUPTION 06/20/2012 FELIX DPM, KOLE V72.31 SENIOR CONTROLS TECHNICIAN EXAM, ROUTINE 06/20/2012 FELIX DPM, KOLE V76.10 BREAST CANCER SCREENING 06/20/2012 FELIX DPM, KOLE V76.2 CERVICAL CANCER SCREENING (PAP SMEAR) 06/20/2012 PETRA STOLL MARSHAL S 782.1 RASH AND OTHER NONSPECIFIC SKIN ERUPTION 06/20/2012 SUNNY LAMBERT APRNNDA S V72.31 SENIOR CONTROLS TECHNICIAN EXAM, ROUTINE 06/20/2012 PETRA MACHINE STAKER, MARSHAL S V76.10 BREAST CANCER SCREENING 06/20/2012 PETRA MACHINE STAKER, MARSHAL S V76.2 CERVICAL CANCER SCREENING (PAP SMEAR) 06/20/2012 PETRA MACHINE STAKER, MARSHAL S 782.1 RASH AND OTHER NONSPECIFIC SKIN ERUPTION 06/20/2012 PETRA STOLL MARSHAL S V72.31 SENIOR CONTROLS TECHNICIAN EXAM, ROUTINE 06/20/2012 PETRA MACHINE STAKER, MARSHAL S V76.10 BREAST CANCER SCREENING 06/20/2012 PETRA STOLL MARSHAL S V76.2 CERVICAL CANCER SCREENING (PAP SMEAR) 06/20/2012 FELIX DPM, KOLE 782.1 RASH AND OTHER NONSPECIFIC SKIN ERUPTION 06/20/2012 FELIX DPM, KOLE V72.31 SENIOR CONTROLS TECHNICIAN EXAM, ROUTINE 06/20/2012 FELIX DPM, KOLE V76.10 BREAST CANCER SCREENING 06/20/2012 FELIX DPM, KOLE V76.2 CERVICAL CANCER SCREENING (PAP SMEAR) 06/20/2012 OMAIRA CARDENAS APRN 782.1 RASH AND OTHER NONSPECIFIC SKIN ERUPTION 06/20/2012 OMAIRA CARDENAS APRN V72.31 SENIOR CONTROLS TECHNICIAN EXAM, ROUTINE 06/20/2012 OMAIRA CARDENAS APRN V76.10 BREAST CANCER SCREENING 06/20/2012 OMAIRA CARDENAS APRN V76.2 CERVICAL CANCER SCREENING (PAP SMEAR) 06/20/2012 OMAIRA CARDENAS APRN 782.1 RASH AND OTHER NONSPECIFIC SKIN ERUPTION 06/20/2012 OMAIRA CARDENAS APRN V72.31 SENIOR CONTROLS TECHNICIAN EXAM, ROUTINE 06/20/2012 OMAIRA CARDENAS APRN V76.10 [...] ESTRELLA Ramirez 553.3 HIATAL HERNIA 07/01/2012 MYKEL ZAMBRANO, ESTRELLA Ramirez V58.69 MEDICATION HIGH RISK 07/01/2012 [...] DESHPANDE APRN V58.69 MEDICATION HIGH RISK 07/01/2012 GIA GRIJAVLA, ALFONSO V58.69 MEDICATION HIGH RISK 07/01/2012 PETRA STOLL, MARSHAL S V58.69 MEDICATION HIGH RISK 07/01/2012 CHARLEE MACHINE STAKER, PK BETTS V58.69 MEDICATION HIGH RISK 07/01/2012 PEÑA DO, AMARILYS K V58.69 MEDICATION HIGH RISK 07/01/2012 DESHPANDE MACHINE STAKER, PK BETTS V58.69 MEDICATION HIGH RISK 07/01/2012 DESHPANDE MACHINE STAKER, PK BETTS V58.69 MEDICATION HIGH RISK 07/01/2012 [...] PEÑA DO K 461.9 SINUSITIS ACUTE 08/09/2012 MARIAH SMITH, BLAYNE Nowak 461.9 SINUSITIS ACUTE 08/09/2012 CHARLEE STOLL, PK ALPESH 461.9 SINUSITIS ACUTE 08/09/2012 ALFONSO NIELSEN MD 461.9 SINUSITIS ACUTE 08/09/2012 PETRA MACHINE STAKER, MARSHAL S 461.9 SINUSITIS ACUTE 08/09/2012 DESHPANDE MACHINE STAKER, PK BETTS 461.9 SINUSITIS ACUTE 08/09/2012 PEÑA DO, AMARILYS K 461.9 SINUSITIS ACUTE 08/09/2012 DESHPANDE MACHINE STAKER, PK BETTS 461.9 SINUSITIS ACUTE 08/09/2012 DESHPANDE MACHINE STAKER, PK BETTS 461.9 SINUSITIS ACUTE 08/09/2012 PETRA MACHINE STAKER, MARSHAL S 461.9 SINUSITIS ACUTE 08/09/2012 PEÑA DOKIANA K 461.9 SINUSITIS ACUTE 08/09/2012 FELIX DPM, KOLE 461.9 SINUSITIS ACUTE 08/09/2012 FELIX DPM, KOLE 461.9 SINUSITIS ACUTE 08/09/2012 FELIX DPM, KOLE 461.9 SINUSITIS ACUTE 08/09/2012 FELIX DPM, KOLE 461.9 SINUSITIS ACUTE 08/09/2012 PETRA MACHINE STAKER, MARSHAL S 461.9 SINUSITIS ACUTE 08/09/2012 PETRA MACHINE STAKER, MARSHAL S 461.9 SINUSITIS ACUTE 08/09/2012 FELIX DPM, KOLE 461.9 SINUSITIS ACUTE 08/09/2012 OMAIRA CARDENAS APRN D 461.9 SINUSITIS ACUTE 08/09/2012 OMIARA CARDENAS APRN D 461.9 SINUSITIS ACUTE 08/25/2012 296.55 MO BIPOLAR [...] DEPRESSED IN PART OR UNSPECIFIED REMISSION 08/25/2012 AMARILYS PEÑA DO K 466.0 BRONCHITIS, ACUTE 08/25/2012 MARIAH SMITH, BLAYNE Nowak 296.55 MO BIPOLAR I DEPRESSED IN PART OR UNSPECIFIED REMISSION 08/25/2012 MARIAH DDS, BLAYNE M 466.0 BRONCHITIS, ACUTE 08/25/2012 DESHPANDE MACHINE STAKER, PK ALPESH 296.55 MO BIPOLAR I DEPRESSED IN PART OR UNSPECIFIED REMISSION 08/25/2012 DESHPANDE MACHINE STAKER, PK ALPESH 466.0 BRONCHITIS, ACUTE 08/25/2012 ALFONSO NIELSEN MD 296.55 MO BIPOLAR I DEPRESSED IN PART OR UNSPECIFIED REMISSION 08/25/2012 ALFONSO NIELSEN MD 466.0 BRONCHITIS, ACUTE 08/25/2012 PETRA MACHINE STAKER, MARSHAL S 296.55 MO BIPOLAR I DEPRESSED IN PART OR UNSPECIFIED REMISSION 08/25/2012 PETRA MACHINE STAKER, MARSHAL S 466.0 BRONCHITIS, ACUTE 08/25/[address] PK ALPESH 296.55 MO BIPOLAR I DEPRESSED IN PART OR UNSPECIFIED REMISSION 08/25/2012 CHARLEE MACHINE STAKER, PK ALPESH 466.0 BRONCHITIS, ACUTE 08/25/2012 PEÑA DO, AMARILYS K 296.55 MO BIPOLAR I DEPRESSED IN PART OR UNSPECIFIED REMISSION 08/25/2012 PEÑA DO, AMARILYS K 466.0 BRONCHITIS, ACUTE 08/25/2012 DESHPANDE MACHINE STAKER, PK ALPESH 296.55 MO BIPOLAR I DEPRESSED IN PART OR UNSPECIFIED REMISSION 08/25/2012 DESHPANDE MACHINE STAKER, PK ALPESH 466.0 BRONCHITIS, ACUTE 08/25/2012 DESHPANDE MACHINE STAKER, PK ALPESH 296.55 MO BIPOLAR I DEPRESSED IN PART OR UNSPECIFIED REMISSION 08/25/2012 DESHPANDE MACHINE STAKER, PK ALPESH 466.0 BRONCHITIS, ACUTE 08/25/2012 PETRA WEBBN, MARSHAL S 296.55 MO BIPOLAR I DEPRESSED IN PART OR UNSPECIFIED REMISSION 08/25/2012 PETRA MACHINE STAKER, MARSHAL S 466.0 BRONCHITIS, ACUTE 08/25/2012 PEÑA [...] DPM, KOLE 466.0 BRONCHITIS, ACUTE 08/25/2012 PETRA MACHINE STAKER, MARSHAL S 296.55 MO BIPOLAR I DEPRESSED IN PART OR UNSPECIFIED REMISSION 08/25/2012 PETRA MACHINE STAKER, MARSHAL S 466.0 BRONCHITIS, ACUTE 08/25/2012 PETRA MACHINE STAKER, MARSHAL S 296.55 MO BIPOLAR I DEPRESSED IN PART OR UNSPECIFIED REMISSION 08/25/2012 PETRA MACHINE STAKER, MARSHAL S 466.0 BRONCHITIS, ACUTE 08/25/2012 FELIX DPM, KOLE 296.55 MO BIPOLAR I DEPRESSED IN PART OR UNSPECIFIED REMISSION 08/25/2012 FELIX DPM, KOLE 466.0 BRONCHITIS, ACUTE 08/25/2012 CARDENAS MACHINE STAKER, OMAIRA D 296.55 MO BIPOLAR I DEPRESSED IN PART OR UNSPECIFIED REMISSION 08/25/2012 CARDENAS MACHINE STAKER, OMAIRA D 466.0 BRONCHITIS, ACUTE 08/25/2012 CARDENAS MACHINE STAKER, OMAIRA D 296.55 MO BIPOLAR I DEPRESSED IN PART OR UNSPECIFIED REMISSION 08/25/2012 CARDENAS MACHINE STAKER, OMAIRA D 466.0 BRONCHITIS, ACUTE 02/03/2013 008.8 GASTROENTERITIS, VIRAL 02/03/2013 AMARILYS PEÑA DO 008.8 GASTROENTERITIS, VIRAL 02/03/2013 BLAYNE LEMUS DDS 008.8 GASTROENTERITIS, VIRAL 02/03/2013 PK DESHPANDE APRN 008.8 GASTROENTERITIS, VIRAL 02/03/2013 ALFONSO NIELSEN MD 008.8 GASTROENTERITIS, VIRAL 02/03/2013 SUNNY LAMBERT APRNNDA S 008.8 GASTROENTERITIS, VIRAL 02/03/2013 PK DESHPANDE APRN 008.8 GASTROENTERITIS, VIRAL 02/03/2013 AMARILYS PEÑA DO 008.8 GASTROENTERITIS, VIRAL 02/03/2013 PK DESHPANDE APRN 008.8 GASTROENTERITIS, VIRAL 02/03/2013 CHARLEE STOLL, PK HARMANH 008.8 GASTROENTERITIS, VIRAL 02/03/2013 PETRA MACHINE STAKER, MARSHAL S 008.8 GASTROENTERITIS, VIRAL 02/03/2013 PEÑA DO, AMARILYS K 008.8 GASTROENTERITIS, VIRAL 02/03/2013 FELIX DPM, KOLE 008.8 GASTROENTERITIS, VIRAL 02/03/2013 FELIX DPM, KOLE 008.8 GASTROENTERITIS, VIRAL 02/03/2013 FELIX DPM, KOLE 008.8 GASTROENTERITIS, VIRAL 02/03/2013 FELIX DPM, KOLE 008.8 GASTROENTERITIS, VIRAL 02/03/2013 PETRA MACHINE STAKER, MARSHAL S 008.8 GASTROENTERITIS, VIRAL 02/03/2013 PETRA MACHINE STAKER, MARSHAL S 008.8 GASTROENTERITIS, VIRAL 02/03/2013 FELIX DPM, KOLE 008.8 GASTROENTERITIS, VIRAL 02/03/2013 OMAIRA CARDENAS APRN D 008.8 GASTROENTERITIS, VIRAL 02/03/2013 CARDENAS MACHINE STAKER, OMAIRA D 008.8 GASTROENTERITIS, VIRAL 05/09/2013 GIA GRIJALVA, ALFONSO 729.5 PAIN- HAND 05/09/2013 PETRA STOLL, MARSHAL S 729.5 PAIN- HAND 05/09/2013 CHARLEE STOLL, PK HARMANH 729.5 PAIN- HAND 05/09/2013 PEÑA AMARILYS WOLFE K 729.5 PAIN- HAND 05/09/2013 CHARLEE STOLL, PK HARMANH 729.5 PAIN- HAND 05/09/2013 CHARLEE STOLL PK ALPESH 729.5 PAIN- HAND 05/09/2013 PETRA STOLL, MARSHAL S 729.5 PAIN- HAND 05/09/2013 PEÑA AMARILYS WOLFE K 729.5 PAIN- HAND 05/09/2013 FELIX DPM, KOLE 729.5 PAIN- HAND 05/09/2013 FELIX DPM, KOLE 729.5 PAIN- HAND 05/09/2013 FELIX DPM, KOLE 729.5 PAIN- HAND 05/09/2013 FELIX DPM, KOLE 729.5 PAIN- HAND 05/09/2013 PETRA STOLL, MARSHAL S 729.5 PAIN- HAND 05/09/2013 PETRA STOLL, MARSHAL S 729.5 PAIN- HAND 05/09/2013 FELIX DPM, KOLE 729.5 PAIN- HAND 05/09/2013 CARDENAS MACHINE STAKER, OMAIRA D 729.5 PAIN- HAND 05/09/2013 CARDENAS MACHINE STAKER, OMAIRA D 729.5 PAIN- HAND 07/10/2013 PEÑA DO, AMARILYS K 599.0 URINARY TRACT INFECTION 07/10/2013 PEÑA DO, AMARILYS K V72.31 SENIOR CONTROLS TECHNICIAN EXAM, ROUTINE 07/10/2013 DESHPANDE MACHINE STAKER, PK ALPESH 599.0 URINARY TRACT INFECTION 07/10/2013 DESHPANDE MACHINE STAKER, PK BETTS V72.31 SENIOR CONTROLS TECHNICIAN EXAM, ROUTINE 07/10/2013 DESHPANDE MACHINE STAKER, PK BETTS 599.0 URINARY TRACT INFECTION 07/10/2013 DESHPANDE MACHINE STAKER, PK BETTS V72.31 SENIOR CONTROLS TECHNICIAN EXAM, ROUTINE 07/10/2013 PETRA MACHINE STAKER, MARSHAL S 599.0 URINARY TRACT INFECTION 07/10/2013 PETRA MACHINE STAKER, MARSHAL S V72.31 SENIOR CONTROLS TECHNICIAN EXAM, ROUTINE 07/10/2013 PEÑA DO, AMARILYS K 599.0 URINARY TRACT INFECTION 07/10/2013 PEÑA DO, AMARILYS K V72.31 SENIOR CONTROLS TECHNICIAN EXAM, ROUTINE 07/10/2013 FELIX DPM, KOLE 599.0 URINARY TRACT INFECTION 07/10/2013 FELIX DPM, KOLE V72.31 SENIOR CONTROLS TECHNICIAN EXAM, ROUTINE 07/10/2013 FELIX DPM, KOLE 599.0 URINARY TRACT INFECTION 07/10/2013 FELIX DPM, KOLE V72.31 SENIOR CONTROLS TECHNICIAN EXAM, ROUTINE 07/10/2013 FELIX DPM, KOLE 599.0 URINARY TRACT INFECTION 07/10/2013 FELIX DPM, KOLE V72.31 SENIOR CONTROLS TECHNICIAN EXAM, ROUTINE 07/10/2013 FELIX DPM, KOLE 599.0 URINARY TRACT INFECTION 07/10/2013 FELIX DPM, KOLE V72.31 SENIOR CONTROLS TECHNICIAN EXAM, ROUTINE 07/10/2013 EPTRA MACHINE STAKER, MARSHAL S 599.0 URINARY TRACT INFECTION 07/10/2013 PETRA MACHINE STAKER, MARSHAL S V72.31 SENIOR CONTROLS TECHNICIAN EXAM, ROUTINE 07/10/2013 PETRA MACHINE STAKER, MARSHAL S 599.0 URINARY TRACT INFECTION 07/10/2013 EREN LAMBERT APRNA S V72.31 SENIOR CONTROLS TECHNICIAN EXAM, ROUTINE 07/10/2013 FELIX DPM, KOLE 599.0 URINARY TRACT INFECTION 07/10/2013 FELIX DPM, KOLE V72.31 SENIOR CONTROLS TECHNICIAN EXAM, ROUTINE 07/10/2013 CARDENAS MACHINE STAKEROMAIRA Gunderson 599.0 URINARY TRACT INFECTION 07/10/2013 CARDENAS MACHINE STAKER, OMAIRA D V72.31 SENIOR CONTROLS TECHNICIAN EXAM, ROUTINE 07/10/2013 CARDENAS MACHINE STAKEROMAIRA D 599.0 URINARY TRACT INFECTION 07/10/2013 CARDENAS MACHINE STAKER, OMAIRA Ramirez V72.31 SENIOR CONTROLS TECHNICIAN EXAM, ROUTINE 12/28/2013 EREN LAMBERT APRNA S 389.9 UNSPECIFIED HEARING LOSS 12/28/2013 SUNNY LAMBERT APRNNDA S 719.40 ARTHRAIGIA UNSPEC 12/28/2013 EREN LAMBERT APRNA S 719.47 PAIN- FOOT 12/28/2013 PEÑA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 RUTH CORTEZ MD [facility] RAD STONES [id number] 03/14/2015 09:12:00 03/14/2015 23:59:59 CLS Outpatient MARSHAL LAMBERT [facility] RAD RUQ PAIN [id number] 03/07/2015 21:13:00 03/07/2015 22:53:00 DIS Emergency JIMENEZ DO, KELLY K [facility] ER ABD PAIN [id number] 12/16/2014 13:06:00 12/16/2014 13:31:00 DIS Emergency BLAKE KIDD APRN [facility] ER R FOOT INJ [id number] 11/04/2014 19:01:00 11/04/2014 19:36:00 DIS Emergency BLAKE KIDD MACHINE STAKER [facility] ER SOA;COUGH [id number] 10/08/2014 07:56:00 10/08/2014 15:15:00 DIS Outpatient FELIX DPM, KOLE Q [facility] PLANTAR FIBROMYTOSIS LEFT FOOT [id number] 10/02/2014 09:14:00 10/02/2014 23:59:59 CLS Outpatient FELIX DPM, KOLE Q [facility] PREOP PLANTAR FIBROMYTOSIS LEFT FOOT [id number] 10/01/2014 14:37:00 10/01/2014 23:59:59 CLS Outpatient VERO HURT MACHINE STAKER [facility] RAD SCREENING [id number] 05/17/2014 18:56:00 05/18/2014 20:30:00 DIS Outpatient MISAEL GRIJALVA FACC, RACHELLE CARTWRIGHT CCDS [facility] [id number] 04/08/2014 12:31:00 04/08/2014 18:03:00 DIS Emergency JEROME ASH [facility] ER [id number] 04/04/2014 10:53:00 04/04/2014 13:00:00 DIS Outpatient NEW GRIJALVA, RENE Beard (DDU) [facility] REHAB RA IN ALL JOINTS ;SEVERE TEST ANXIETY;BIPOLAR DISOR [id number] 03/15/2013 14:41:00 03/15/2013 23:59:59 CLS Outpatient [id number] 02/15/2013 14:30:00 02/15/2013 23:59:59 CLS Outpatient [id number] 01/23/2013 10:56:00 01/23/2013 23:59:59 CLS Outpatient [id number] 09/21/2018 08:00:00 PEN Preadmit TOM GUTIERREZ DO [facility] LOWER LIP LESION [id number] 08/23/2014 15:36:00 08/23/2014 23:59:59 CLS Outpatient OMAIRA CARDENAS APRN [id number] 07/05/2014 14:38:00 07/05/2014 23:59:59 CLS Outpatient OMAIRA CARDENAS APRN [id number] 06/08/2014 08:30:00 06/08/2014 23:59:59 CLS Outpatient KOLE WASHINGTON DPM [id number] 05/22/2014 10:27:00 05/22/2014 23:59:59 CLS Outpatient MARSHAL LAMBERT APRN [id number] 04/24/2014 07:47:00 04/24/2014 23:59:59 CLS Outpatient MARSHAL LAMBERT APRN [id number] 04/20/2014 08:36:00 04/20/2014 23:59:59 CLS Outpatient KOLE WASHINGTON DPM [id number] 03/09/2014 07:51:00 03/09/2014 23:59:59 CLS Outpatient FELIX DPMKOLE [id number] 02/26/2014 00:00:00 02/26/2014 23:59:59 CLS Outpatient FELIX DPMKOLE [id number] 02/16/2014 10:32:00 02/16/2014 23:59:59 CLS Outpatient FELIX DPKOLE [place] [id number] 01/03/2014 00:00:00 01/03/2014 23:59:59 CLS Outpatient AMARILYS PEÑA DO [id number] 01/01/2014 11:14:00 01/01/2014 23:59:59 CLS Outpatient MARSHAL LAMBERT APRN Victorino [id number] 12/19/2013 13:42:00 12/19/2013 23:59:59 CLS Outpatient CHARLEE MACHINE STAKERPK Gunderson [id number] 08/30/2013 09:09:00 08/30/2013 23:59:59 CLS Outpatient DESHPANDEPK BELTRAN APRN [id number] 07/12/2013 07:58:00 07/12/2013 23:59:59 CLS Outpatient AMARILYS PEÑA DO [id number] 06/28/2013 10:44:00 06/28/2013 23:59:59 CLS Outpatient PK DESHPANDE APRN [id number] 05/23/2013 09:43:00 05/23/2013 23:59:59 CLS Outpatient MARSHAL LAMBERT APRN [place] [id number] 05/10/2013 07:46:00 05/10/2013 23:59:59 CLS Outpatient ALFONSO NIELSEN MD [id number] 04/21/2013 11:47:00 04/21/2013 23:59:59 CLS Outpatient DESHPANDE MACHINE STAKERPK Gunderson [id number] 02/23/2013 15:39:00 02/23/2013 23:59:59 CLS Outpatient BLAYNE LEMUS DDS [id number] 08/30/2012 12:59:00 08/30/2012 23:59:59 CLS Outpatient [id number] 08/25/2012 09:56:00 08/25/2012 23:59:59 CLS Outpatient [id number] 08/09/2012 10:23:00 08/09/2012 23:59:59 CLS Outpatient [id number] 07/29/2012 12:54:00 07/29/2012 23:59:59 CLS Outpatient [id number] 07/28/2012 08:46:00 07/28/2012 23:59:59 CLS Outpatient [id number] 07/14/2012 13:49:00 07/14/2012 23:59:59 CLS Outpatient ESTRELLA HOGUE PHD [id number] 07/04/2012 08:04:00 07/04/2012 23:59:59 CLS Outpatient AMARILYS PEÑA DO [id number] 07/04/2012 08:04:00 07/04/2012 23:59:59 CLS Outpatient NEREIDA JONES DO [id number] 07/01/2012 14:25:00 07/01/2012 23:59:59 CLS Outpatient NEREIDA JONES DO [id number] 07/01/2012 14:25:00 07/01/2012 23:59:59 CLS Outpatient NEREIDA JONES DO [id number] 06/20/2012 12:28:00 06/20/2012 23:59:59 CLS Outpatient MARSHAL LAMBERT APRN [id number] 06/16/2012 13:50:00 06/16/2012 23:59:59 CLS Outpatient ESTRELLA HOGUE PHD [id number] 06/08/2012 14:40:00 06/08/2012 23:59:59 CLS Outpatient [id number] 05/19/2012 14:49:00 05/19/2012 23:59:59 CLS Outpatient NEREIDA JONES DO [id number] 05/05/2012 07:48:00 05/05/2012 23:59:59 CLS Outpatient MARSHAL LAMBERT APRN [id number] 04/08/2012 07:56:00 04/08/2012 23:59:59 CLS Outpatient MARSHAL LAMBERT APRN [id number] 02/03/2013 11:52:00 Document Registration [id number] 11/23/2012 11:15:00 Document Registration
[2018-09-21] MEDS ORDERED: LACTATED RINGERS 1,000 ML IV PRN (06:42)
[2018-09-21] MEDS ORDERED: FAMOTIDINE 20MG/2ML IV (PEPCID) IV ONE (06:45)
[2018-09-21] MEDS ORDERED: ONDANSETRON 4 MG/2 ML (SDV) Z0FRAN IV ONE (06:45)
[2018-09-21] MEDS ORDERED: SCOPOLAMINE 1.5 MG (TRANSDERM-SCOP) PATCH TOP ONE (06:45)
[2018-09-21] MEDS ORDERED: ceFAZolin 2 GM IV Premixed 50 ML IV ONE (06:45)
[2018-09-21] MEDS ORDERED: MIDAZOLAM 2 MG/2 ML (VERSED) VIAL ONE ×2 (06:49)
[2018-09-21] MEDS ORDERED: PROPOFOL INJECTION 50 ML IV ONE (06:49)
[2018-09-21] MEDS ORDERED: CATHETER FLUSH 10 ML SYR IV PRN (07:00)
[2018-09-21] MEDS ORDERED: LIDOCAINE 1% INJ 20 ML 20 ML VIAL ONE (07:12)
[2018-09-21] MEDS ORDERED: BUP/EPI 0.5% 1:200,000 (SENSORCAINE) 30 ML VIAL ONE (07:12)
--- NOTE | 2018-09-21 07:45 | Progress Note-Pre Operative ---
Pre-Operative Progress Note H&P Reviewed The H&P was reviewed, patient examined and no changes noted. Date Seen by Provider: Sep 21, 2018 Time Seen by Provider: 07: Date H&P Reviewed: Sep 21, 2018 Time H&P Reviewed: : Pre-Operative Diagnosis: lesion right lower inner lip TOM GUTIERREZ DO Sep 21, 2018 07:45
--- NOTE | 2018-09-21 08:15 | Progress Note-Post Operative ---
Post-Operative Progess Note Surgeon (s)/Buhr Mill Operator (s) Surgeon TOM GUTIERREZ DO Buhr Mill Operator: na Pre-Operative Diagnosis lesion right lower inner lip Post-Operative Diagnosis same Procedure & Operative Findings Date of Procedure 09/21/18 Procedure Performed/Findings excision mucosal right lower lip lesion Anesthesia Type mac c local 4.5 mL 1% lidocaine Estimated Blood Loss Estimated blood loss (mL): min Specimens/Packing Specimens Removed oral mucosal lesion right lower lip TOM GUTIERREZ DO Sep 21, 2018 08:15
--- NOTE | 2018-09-21 08:17 | Discharge Inst-Simple/Standard ---
Discharge Inst-Standard Patient Instructions/Follow Up Plan of Care/Instructions/FU: 2 weeks Lucas Activity as Tolerated: Yes Discharge Diet: Regular Diet (stick to more liquids and easy food to chew) TOM GUTIERREZ DO Sep 21, 2018 08:17
[2018-09-21] MEDS ORDERED: ONDANSETRON 4 MG/2 ML (SDV) Z0FRAN IVP PRN (08:30)
[2018-09-21] MEDS ORDERED: morphine INJ 10 MG/ML 1ML (SYR OR VIAL) IVP ONE (08:30)
--- NOTE | 2018-09-21 13:43 | Anesthesia-General Post-Op ---
General Patient Condition Mental Status/LOC: Same as Preop Cardiovascular: Satisfactory Nausea/Vomiting: Absent Respiratory: Satisfactory Pain: Controlled Complications: Absent Post Op Complications Complications None Follow Up Care/Instructions Patient Instructions None needed. Anesthesia/Patient Condition Patient Condition Patient is doing well, no complaints, stable vital signs, no apparent adverse anesthesia problems. No complications reported per nursing. OMAIRA AGUILAR CRNA Sep 21, 2018 13:43
--- NOTE | 2018-09-22 05:26 | OPERATIVE REPORT ---
DATE OF SERVICE: 09/21/2018 PREOPERATIVE DIAGNOSIS: Right lower lip mucosal lesion. POSTOPERATIVE DIAGNOSIS: Right lower lip mucosal lesion. PROCEDURE: Excision of mucosal right lower lip lesion 1 x 2 cm. SURGEON: Tom Zavala DO. ANESTHESIA: MAC with local. ESTIMATED BLOOD LOSS: Minimal. COMPLICATIONS: None. INDICATIONS: The patient is a 43-year-old female with recurrent right lower lip mucosal lesion. She understands risks and benefits of having it excised and wishes to proceed. Consent was signed and on the chart. DESCRIPTION OF PROCEDURE: The patient was taken to the operating suite. She was provided MAC sedation with local anesthetic of 1% lidocaine. A timeout was performed after she was prepped and draped. Local anesthetic was infiltrated around the lesion in amount of 4.5 mL. A 15 blade scalpel was used to make an elliptical incision measuring 1.2 cm around the lesion, which was then grasped and elevated and mucosal lesion was removed. The mucosa was then reapproximated using 3-0 chromic in simple interrupted fashion. The patient tolerated the procedure well without any complications. She was taken to the recovery room in stable condition. Job ID: [id number] DocumentID: [id number] Dictated Date: 09/21/2018 21:29:24 Shooter Helper Date: 09/22/2018 05:25:14 Dictated By: TOM ZAVALA DO
== END 2018-09-21 10:05 | disposition home or self-care (01) ==
LOC: SDC 05:48
PROVIDERS: ATTEND Surgery
DX: L57.0 Actinic keratosis (principal); Z11.2 Encounter for screening for other bacterial diseases; F41.9 Anxiety disorder, unspecified; M19.91 Primary osteoarthritis, unspecified site; E78.5 Hyperlipidemia, unspecified; K21.9 Gastro-esophageal reflux disease without esophagitis; E28.2 Polycystic ovarian syndrome; F43.10 Post-traumatic stress disorder, unspecified; F31.9 Bipolar disorder, unspecified; Z79.899 Other long term (current) drug therapy; Z87.891 Personal history of nicotine dependence
CPT/HCPCS: 87081

== ENCOUNTER 2018-10-30 00:30 | Emergency (ER) | payer BC ==
[~2018-10-30] VITALS: Ht 167.6 cm; Wt 93.9 kg
--- NOTE | 2018-10-30 00:48 | ED Lower Extremity ---
General Stated Complaint: PAIN IN LOWER LEG Source: patient, other Exam Limitations: no limitations History of Present Illness Date Seen by Provider: Oct 30, 2018 Time Seen by Provider: 00:35 Initial Comments Patient presents to ER by private conveyance with chief complaint of mildly tender discoloration in the posterior portion of the left calf starting just above the ankle and with a red streak going calf. She denies fevers chills swelling, surgery, periods of inactivity or immobility, history of DVTs, pulmonary embolisms in herself or primary family. She does not smoke but uses a vaporizer. She denies any recent injury or, to the leg explain her symptoms. She rates the pain as a 6/10. Allergies and Home Medications Allergies Coded Allergies: prednisone (Verified Allergy, Mild, "MAKES HER MEAN", 09/20/18) tomato (Unverified Allergy, Unknown, HIVES, 05/17/14) Home Medications Amitriptyline HCl 50 Mg Tablet, 50 MG PO HS PRN for INSOMNIA, (Reported) Atorvastatin Calcium 80 Mg Tablet, 80 MG PO HS, (Reported) Cetirizine HCl 10 Mg Capsule, 10 MG PO DAILY, (Reported) Metformin HCl 500 Mg Tab.er.24h, 500 MG PO DAILY, (Reported) Venlafaxine HCl 150 Mg Cap.er.24h, 150 MG PO DAILY, (Reported) Patient Home Medication List Home Medication List Reviewed: Yes Review of Systems Constitutional: No chills, No diaphoresis EENTM: No ear discharge, No hearing loss, No ear pain Respiratory: No cough, No short of breath Cardiovascular: No chest pain, No edema, No Hx of Intervention, No palpitations Gastrointestinal: No abdominal pain, No constipation, No diarrhea Genitourinary: No discharge, No dysuria Musculoskeletal: No back pain, No joint pain Past Vdxyivy-Mfurna-Lpiude Hx Patient Social History Alcohol Use: Rarely Uses Recreational Drug Use: No Smoking Status: Never a Smoker Type Used: Electronic/Vapor 2nd Hand Smoke Exposure: Yes Recent Foreign Travel: No Contact w/Someone Who Travel: No Recent Hopitalizations: No Immunizations Up To Date Tetanus Booster (TDap): Unknown Date of Pneumonia Vaccine: Mar 31, 2014 Date of Influenza Vaccine: Mar 07, 2018 Seasonal Allergies Seasonal Allergies: No Past Medical History Surgeries: Yes (PLANTAR FACSIITIS, SHOULDER, KNEE SCOPE, DX LAP X2- ENOMETRIOSIS/ADHESIONS) Abdominal, Bladder Surgery, Cardiac, Gallbladder, Hysterectomy, Oophorectomy, Orthopedic Respiratory: No Cardiac: Yes (CLEAN HEART CATH 2013) High Cholesterol Neurological: No Reproductive Disorders: No Female Reproductive Disorders: Polycystic Ovarian Dis 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 Sexually Transmitted Disease: No HIV/AIDS: No Genitourinary: Yes Kidney Stones Gastrointestinal: Yes (IRR BOWELS) Gastroesophageal Reflux Musculoskeletal: Yes Arthritis Endocrine: No (TAKES METFORMIN FOR OVARIES) HEENT: Yes (CONTACTS) Loss of Vision: Bilateral Hearing Impairment: Denies Cancer: No Psychosocial: Yes (EXTENSIVE PSYCH ISSUES) Sleep Difficulties, Anxiety, PTSD, Bipolar, Depression Integumentary: No Blood Disorders: No Adverse Reaction/Blood Tranf: No (N/A) Family Medical History Alcoholism 19 FATHER, Onset:20's - 25 Cardiovascular disease 19 MOTHER, Onset:40's - 50 G8 SISTER, Onset:30's - 40 G8 SISTER, Onset:40's - 50 G8 SISTER, Onset:40's - 50 G8 SISTER, Onset:40's - 50 G8 SISTER, Onset:40's - 50 Gastroenteritis 19 MOTHER, Onset:50's - 60 Hypercholesterolemia 19 MOTHER, Onset:50's - 60 G8 SISTER, Onset:30's - 40 G8 SISTER, Onset:40's - 50 G8 SISTER, Onset:40's - 50 G8 SISTER, Onset:40's - 50 G8 SISTER, Onset:40's - 50 Neoplasm 19 FATHER, Onset:50's - 60 Heart Disease, Stroke Physical Exam Vital Signs Vital Signs - First Documented 10/30/18 00:32 Temp 97.8 Pulse 69 Resp 18 B/P (MAP) 117/67 (84) Pulse Ox 96 O2 Delivery Room Air Capillary Refill : Height, Weight, BMI Height: 5'6.00" Weight: 207lbs. 0.0oz. 93.309277lw; 33.4 BMI Method:Stated General Appearance: WD/WN, no apparent distress HEENT: PERRL/EOMI, pharynx normal Cardiovascular: normal peripheral pulses, regular rate, rhythm Respiratory: no respiratory distress, no accessory muscle use Legs: right leg non-tender, right leg normal inspection; bilateral leg normal range of motion; right leg no evidence of injury; left leg abrasions, left leg ecchymosis (minor 3 cm diameter irregular horizontal stripe shaped ecchymoses versus abrasion on the posterior lower calf.), left leg soft tissue tenderness Progress/Results/Core Measures Results/Orders Lab Results Laboratory Tests Test 10/30/18 00:53 Range/Units D-Dimer 0.32 0.00-0.49 UG/ML My Orders Orders - SINDY TOPETE Fibrin Degradation Products (10/30/18 00:40) Vital Signs/I&O 10/30/18 00:32 Temp 97.8 Pulse 69 Resp 18 B/P (MAP) 117/67 (84) Pulse Ox 96 O2 Delivery Room Air Progress Progress Note : Time: 00:47 Progress Note Appears to be more consistent with an abrasion or superficial injury resulting in ecchymoses. There is no red streaking appreciated on examination. Calf diameter appears to be similar to the contralateral leg. She would be low risk that we will obtain a d-dimer. Departure Impression Primary Impression: Ankle bruise Qualified Codes: S90.02XA - Contusion of left ankle, initial encounter Disposition: HOME, SELF-CARE Condition: Stable Departure-Patient Inst. Decision time for Depature: 01:17 Referrals: [facility] (PCP) Primary Care Physician [address] APRN (Family) Primary Care Physician Patient Instructions: Contusion (DC) Add. Discharge Instructions: Apply ice 20 minutes every 4 hours for the first couple days. You may also use heating pads or topical creams such as icy hot, Biofreeze etc. Tylenol 1000 mg and ibuprofen 800 mg every 8 hours each as necessary for pain control. This should resolve on its own in the next 2 weeks however if it continues to grow or does not resolve by that time then you should follow-up with primary care for reevaluation. SINDY TOPETE Oct 30, 2018 00:48
[2018-10-30 01:20] VITALS: BP 0/0
== END 2018-10-30 01:20 | disposition home or self-care (01) ==
LOC: EDUNIT# 00:30 → ER 00:33
DX: S90.02XA Contusion of left ankle, initial encounter (principal); K21.9 Gastro-esophageal reflux disease without esophagitis; K58.9 Irritable bowel syndrome, unspecified; F41.9 Anxiety disorder, unspecified; F31.9 Bipolar disorder, unspecified; F43.10 Post-traumatic stress disorder, unspecified; E78.00 Pure hypercholesterolemia, unspecified; Z88.8 Allergy status to other drugs, medicaments and biological substances; Z82.49 Family history of ischemic heart disease and other diseases of the circulatory system; Z79.84 Long term (current) use of oral hypoglycemic drugs; Z95.9 Presence of cardiac and vascular implant and graft, unspecified; Z77.22 Contact with and (suspected) exposure to environmental tobacco smoke (acute) (chronic); Z87.442 Personal history of urinary calculi; Z98.890 Other specified postprocedural states; Z90.710 Acquired absence of both cervix and uterus; X58.XXXA Exposure to other specified factors, initial encounter
CPT/HCPCS: 36415; 85379; 99283

== ENCOUNTER → 2019-02-07 | Outpatient (CLI) | payer BC ==
[~2019-02-07] MED LIST changes: +RANI-613 PO; -RANI150T46 PO
--- NOTE | 2019-02-07 14:32 | Diagnostic Imaging Report ---
EXAMINATION: Magnetic resonance imaging of the right knee without intravenous contrast. DATE: February 07, 2019. COMPARISON: None. INDICATION: 43-year-old female, acute onset right knee pain after injury in December with persistent pain. TECHNIQUE: Multiplanar/multisequence noncontrast enhanced MR imaging was accomplished. FINDINGS: MENISCI: The medial meniscus is intact. The lateral meniscus is intact. LIGAMENTS AND TENDONS: The anterior and posterior cruciate ligaments are intact. The medial collateral ligament is intact. The iliotibial band, mid third lateral capsular ligament, fibular collateral ligament, biceps femoris tendon, and conjoined tendon are intact. The quadriceps tendon and patella ligament are intact. JOINT: There is mild superficial irregularity of the cartilage of the median patellar ridge. The medial and lateral compartment cartilage appears grossly intact. There is no knee joint effusion, prominent synovitis, or intra-articular body. BONE: There is subcortical cystic change within the anterior aspect of the lateral femoral condyle with adjacent marrow edema. This may be arthritic related. There is no acute fracture. There is no evidence of osteonecrosis. There is no bone contusion. BURSAE AND SOFT TISSUES: There is no Conn's cyst. There is nonspecific anterior subcutaneous edema. IMPRESSION: 1. Intact menisci and cruciate ligaments. Additional ligaments and tendons are also intact. 2. Mild patellofemoral compartment osteoarthritis. No knee joint effusion. 3. No acute fracture or bone contusion. 4. Nonspecific anterior subcutaneous edema. Dictated by: Dictated on workstation # [id number]
== END ==
LOC: RAD 08:14
PROVIDERS: ATTEND Nurse Practitioner Primary Care
DX: S89.91XA Unspecified injury of right lower leg, initial encounter (principal); M17.11 Unilateral primary osteoarthritis, right knee
CPT/HCPCS: 73721

== ENCOUNTER 2019-04-18 17:10 | Observation (INO) | payer BC, OTHER ==
[~2019-04-18] VITALS: Ht 167.7 cm; Wt 103.0 kg
--- NOTE | 2019-04-18 17:40 | NUR ---
Pt placed in family room d/t bed availability. Pt , Venus, @ side. Pt makes verbal commitment to this RN while in ED care to not attempt to harm self in any way.
[2019-04-18 18:27] LABS: BILIRUBIN,URINE NEGATIVE (NEGATIVE); CLARITY,URINE CLEAR; COLOR,URINE YELLOW; GLUCOSE, URINE (UA) NEGATIVE (NEGATIVE); KETONES,URINE NEGATIVE (NEGATIVE); LEUKOCYTE ESTERASE ,URINE NEGATIVE (NEGATIVE); NITRITE,URINE NEGATIVE (NEGATIVE); PROTEIN,URINE NEGATIVE (NEGATIVE)
--- NOTE | 2019-04-18 18:32 | ED Psychosocial ---
General Chief Complaint: Suicidal Ideation Risk Stated Complaint: SUICIDAL Nursing Triage Note: PT STATES SUICIDAL FOR ABOUT A WEEK, OUT OF MEDS FOR 3 DAYS. Source: patient, spouse Exam Limitations: no limitations History of Present Illness Date Seen by Provider: Apr 18, 2019 Time Seen by Provider: 18:00 Initial Comments The patient presents to ER by private conveyance with her spouse and chief complaint that she has been suicidal for the past couple weeks and today was making some posts on Facebook they were intentionally cryptic and when her some bouts confront her about this she denied that she remembers writing them. She says she has been suicidal for the past couple days with multiple plans and has history of suicide attempts in the past of attempted hanging herself in 2002. She denies having done anything to harm herself yet. She does have a history of self-harm behavior cutting many years in the past but nothing recently. She would like to go inpatient to see a psychiatrist. She has an appointment with her psychiatrist tomorrow. She's been out of her medicines InVega and Trileptal for the past 3 days. She has missed several appointments with her counselor lately because the counselor has had to reschedule. 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 At this time however she is voluntary to go. A major stressor lately is that is going through a divorce presently. She has been to [facility] in the past and said that this worked very well for her. She denies any pain, nausea, dysuria, fever, chills. Allergies and Home Medications Allergies Coded Allergies: prednisone (Verified Allergy, Mild, "MAKES HER MEAN", 09/20/18) tomato (Unverified Allergy, Unknown, HIVES, 05/17/14) Home Medications Amitriptyline HCl 50 Mg Tablet, 50 MG PO HS PRN for INSOMNIA, (Reported) Atorvastatin Calcium 80 Mg Tablet, 80 MG PO HS, (Reported) Cetirizine HCl 10 Mg Capsule, 10 MG PO DAILY, (Reported) Metformin HCl 500 Mg Tab.er.24h, 500 MG PO DAILY, (Reported) Venlafaxine HCl 150 Mg Cap.er.24h, 150 MG PO DAILY, (Reported) Patient Home Medication List Home Medication List Reviewed: Yes Review of Systems Constitutional: No chills, No diaphoresis EENTM: No ear discharge, No hearing loss Respiratory: No cough, No short of breath Cardiovascular: No chest pain, No edema Gastrointestinal: No abdominal pain, No constipation, No diarrhea, No nausea Genitourinary: No discharge, No dysuria : No All Other Systems Reviewed Negative Unless Noted: Yes Past Rtvhmhw-Hrblqm-Bvybow Hx Patient Social History Alcohol Use: Denies Use Recreational Drug Use: No Smoking Status: Current Everyday Smoker Type Used: Electronic/Vapor 2nd Hand Smoke Exposure: Yes Recent Foreign Travel: No Contact w/Someone Who Travel: No Recent Infectious Disease Expo: No Recent Hopitalizations: No Physical Abuse: No Sexual Abuse: No Immunizations Up To Date Tetanus Booster (TDap): Unknown Date of Pneumonia Vaccine: Mar 31, 2014 Date of Influenza Vaccine: Mar 07, 2018 Seasonal Allergies Seasonal Allergies: No Past Medical History Surgeries: Yes (PLANTAR FACSIITIS, SHOULDER, KNEE SCOPE, DX LAP X2- ENOMETRIOSIS/ADHESIONS) Abdominal, Bladder Surgery, Cardiac, Gallbladder, Hysterectomy, Oophorectomy, Orthopedic Respiratory: No Cardiac: Yes (CLEAN HEART CATH 2013) High Cholesterol Neurological: No : No Reproductive Disorders: No Female Reproductive Disorders: Polycystic Ovarian Dis 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 Pt makes verbal commitment to this RN while in ED care to not self harm in any way. Integumentary: No Blood Disorders: No Adverse Reaction/Blood Tranf: No (N/A) Family Medical History Alcoholism 19 FATHER, Onset:20's - 25 Cardiovascular disease 19 MOTHER, Onset:40's - 50 G8 SISTER, Onset:30's - 40 G8 SISTER, Onset:40's - 50 G8 SISTER, Onset:40's - 50 G8 SISTER, Onset:40's - 50 G8 SISTER, Onset:40's - 50 Gastroenteritis 19 MOTHER, Onset:50's - 60 Hypercholesterolemia 19 MOTHER, Onset:50's - 60 G8 SISTER, Onset:30's - 40 G8 SISTER, Onset:40's - 50 G8 SISTER, Onset:40's - 50 G8 SISTER, Onset:40's - 50 G8 SISTER, Onset:40's - 50 Neoplasm 19 FATHER, Onset:50's - 60 Heart Disease, Stroke Physical Exam Vital Signs - First Documented 04/18/19 17:24 Temp 36.9 Pulse 78 Resp 20 B/P (MAP) 114/77 (89) Pulse Ox 96 O2 Delivery Room Air Capillary Refill : Less Than 3 Seconds Height, Weight, BMI Height: 5'6.00" Weight: 207lbs. 0.0oz. [id number]; 38.00 BMI Method:Stated General Appearance: WD/WN, no apparent distress, other (depressed affect) HEENT: PERRL/EOMI, pharynx normal Neck: full range of motion, normal inspection Respiratory: no respiratory distress, no accessory muscle use Cardiovascular: regular rate, rhythm, no edema Extremities: normal range of motion, normal inspection, no pedal edema Neurologic/Psychiatric: alert, oriented x 3, other (depressed affect) Appearance/Memory: appropriate appearance, appropriate insight Behavior/Eye Contact: cooperative, good eye contact, normal speech Thoughts/Hallucinations: normal thought pattern, no apparent hallucination Skin: normal color, warm/dry Progress/Results/Core Measures Results/Orders Lab Results Laboratory Tests Test 04/18/19 17:58 Range/Units White Blood Count 10.3 4.3-11.0 10^3/uL Red Blood Count 5.08 4.35-5.85 10^6/uL Hemoglobin 14.8 11.5-16.0 G/DL Hematocrit 44 35-52 % Mean Corpuscular Volume 86 80-99 FL Mean Corpuscular Hemoglobin 29 25-34 PG Mean Corpuscular Hemoglobin Concent 34 32-36 G/DL Red Cell Distribution Width 13.4 10.0-14.5 % Platelet Count 342 130-400 10^3/uL Mean Platelet Volume 9.9 7.4-10.4 FL Neutrophils (%) (Auto) 56 42-75 % Lymphocytes (%) (Auto) 32 12-44 % Monocytes (%) (Auto) 8 0-12 % Eosinophils (%) (Auto) 4 0-10 % Basophils (%) (Auto) 0 0-10 % Neutrophils # (Auto) 5.8 1.8-7.8 X 10^3 Lymphocytes # (Auto) 3.3 1.0-4.0 X 10^3 Monocytes # (Auto) 0.8 0.0-1.0 X 10^3 Eosinophils # (Auto) 0.4 H 0.0-0.3 10^3/uL Basophils # (Auto) 0.0 0.0-0.1 10^3/uL Urine Color YELLOW Urine Clarity CLEAR Urine pH 6.0 5-9 Urine Specific [place] 1.020 1.016-1.022 Urine Protein NEGATIVE NEGATIVE Urine Glucose (UA) NEGATIVE NEGATIVE Urine Ketones NEGATIVE NEGATIVE Urine Nitrite NEGATIVE NEGATIVE Urine Bilirubin NEGATIVE NEGATIVE Urine Urobilinogen 0.2 < = 1.0 MG/DL Urine Leukocyte Esterase NEGATIVE NEGATIVE Urine RBC (Auto) TRACE-I NEGATIVE Urine RBC 0-2 /HPF Urine WBC NONE /HPF Urine Squamous Epithelial Cells 0-2 /HPF Urine Crystals NONE /LPF Urine Bacteria MODERATE H /HPF Urine Casts NONE /LPF Urine Mucus NEGATIVE /LPF Urine Culture Indicated NO Sodium Level 140 135-145 MMOL/L Potassium Level 3.9 3.6-5.0 MMOL/L Chloride Level 101 98-107 MMOL/L Carbon Dioxide Level 24 21-32 MMOL/L Anion Gap 15 H 5-14 MMOL/L Blood Urea Nitrogen 13 7-18 MG/DL Creatinine 0.92 0.60-1.30 MG/DL Estimat Glomerular Filtration Rate > 60 BUN/Creatinine Ratio 14 Glucose Level 99 70-105 MG/DL Calcium Level 9.5 8.5-10.1 MG/DL Corrected Calcium 9.3 8.5-10.1 MG/DL Total Bilirubin 0.3 0.1-1.0 MG/DL Aspartate Amino Transf (AST/SGOT) 23 5-34 U/L Alanine Aminotransferase (ALT/SGPT) 32 0-55 U/L Alkaline Phosphatase 64 40-136 U/L Total Protein 8.0 6.4-8.2 GM/DL Albumin 4.2 3.2-4.5 GM/DL Salicylates Level < 5.0 L 5.0-20.0 MG/DL Urine Opiates Screen NEGATIVE NEGATIVE Urine Oxycodone Screen NEGATIVE NEGATIVE Urine Methadone Screen NEGATIVE NEGATIVE Urine Propoxyphene Screen NEGATIVE NEGATIVE Acetaminophen Level < 10 L 10-30 UG/ML Urine Barbiturates Screen NEGATIVE NEGATIVE Ur Tricyclic Antidepressants Screen NEGATIVE NEGATIVE Urine Phencyclidine Screen NEGATIVE NEGATIVE Urine Amphetamines Screen NEGATIVE NEGATIVE Urine Methamphetamines Screen NEGATIVE NEGATIVE Urine Benzodiazepines Screen NEGATIVE NEGATIVE Urine Cocaine Screen NEGATIVE NEGATIVE Urine Cannabinoids Screen NEGATIVE NEGATIVE Serum Alcohol < 10 <10 MG/DL My Orders Orders - SINDY TOPETE Ua Culture If Indicated (04/18/19 17:42) Cbc With Automated Diff (04/18/19 17:42) Comprehensive Metabolic Panel (04/18/19 17:42) Alcohol (04/18/19 17:42) Drug Screen Stat (Urine) (04/18/19 17:42) Acetaminophen (04/18/19 17:42) Salicylate (04/18/19 17:42) Ekg Tracing (04/18/19 17:42) Bh Status Checks/Observation Q15M (04/18/19 17:42) Urine Bedside (04/18/19 17:42) Ondansetron Oral Dissolve Tab (Zofran (04/18/19 20:00) General/Regular (04/18/19 Dinner) Medications Given in ED Current Medications Medications Dose Ordered Sig/Em Route Start Time Stop Time Status Last Admin Dose Admin Ondansetron HCl 4 mg ONCE ONCE PO 04/18/19 20:00 04/18/19 20:01 DC 04/18/19 20:13 4 MG Vital Signs/I&O 04/18/19 17:24 Temp 36.9 Pulse 78 Resp 20 B/P (MAP) 114/77 (89) Pulse Ox 96 O2 Delivery Room Air Blood Pressure Mean: 89 POS Progress Progress Note #1: Time: 19:03 Progress Note Medical and laboratory the patient is stable for inpatient psychiatric treatment which is what she still wants. Contacted [facility] and they would like us to fax over information and they will get back with us. The patient says her daughter is willing to give her a ride to [facility] in the morning. Progress Note #2: Time: 20:30 Progress Note [facility]: [place] calls us back and tells us that the patient would be accepted in the morning but they do not have bed availability tonight. They're given a start on doctor's orders and when they have a room assignment in the morning would be happy to call. We will seek observation overnight in the hospital. The patient is in agreement with this. She says that her daughter austin wong be willing to give her a ride in the morning to [facility]. Initial ECG Impression Date: Apr 18, 2019 Initial ECG Impression Time: 17:58 Initial ECG Rate: 76 Initial ECG Rhythm: Normal Sinus Initial ECG Intervals: Normal Initial ECG Impression: Normal Comment Normal sinus rhythm without ST elevation or depression. Departure Communication (Admissions) Time/Spoke to Admitting Phy: 20:[address] Galvan and she agrees to observe the patient overnight. Impression Primary Impression: Suicidal ideation Additional Impression: Depression Qualified Codes: F32.9 - Major depressive disorder, single episode, unspecified Disposition: 01 HOME, SELF-CARE Condition: Stable Admissions Decision to Admit Reason: Admit from ER (General) Decision to Admit/Date: Apr 18, 2019 Time/Decision to Admit Time: 20:30 Departure-Patient Inst. Referrals: [facility] (PCP) Primary Care Physician [address] APRN (Family) Primary Care Physician Patient Instructions: OUTPT MENT[facility] SERVICES SINDY TOPETE Apr 18, 2019 18:32 POS
[2019-04-18 18:40] LABS: BASOPHILS % (AUTO) 0 % (0-10); EOSINOPHILS # (AUTO) 0.4 10^3/uL (0.0-0.3); EOSINOPHILS % (AUTO) 4 % (0-10); HEMATOCRIT 44 % (35-52); HEMOGLOBIN 14.8 G/DL (11.5-16.0); LYMPHOCYTES # (AUTO) 3.3 X 10^3 (1.0-4.0); LYMPHOCYTES % (AUTO) 32 % (12-44); MEAN CORPUSCULAR HEMOGLOBIN 29 PG (25-34); MEAN CORPUSCULAR HGB CONC 34 G/DL (32-36); MEAN CORPUSCULAR VOLUME 86 FL (80-99); MEAN PLATELET VOLUME 9.9 FL (7.4-10.4); MONOCYTES # (AUTO) 0.8 X 10^3 (0.0-1.0); MONOCYTES % (AUTO) 8 % (0-12); NEUTROPHILS # (AUTO) 5.8 X 10^3 (1.8-7.8); NEUTROPHILS % (AUTO) 56 % (42-75); PLATELET COUNT 342 10^3/uL (130-400); RED CELL DISTRIBUTION WIDTH 13.4 % (10.0-14.5); WHITE BLOOD COUNT 10.3 10^3/uL (4.3-11.0)
[2019-04-18 18:44] LABS: BACTERIA,URINE MODERATE /HPF; RBC,URINE 0-2 /HPF; SQUAMOUS EPITHELIAL CELL,UR 0-2 /HPF
--- NOTE | 2019-04-18 18:45 | NUR ---
Visual check on pt in family room. Voices no c/o or concerns @ this time. Venus @ side. Will continue to monitor.
[2019-04-18 18:55] LABS: ALANINE AMINOTRANSFERASE 32 U/L (0-55); ALBUMIN 4.2 GM/DL (3.2-4.5); ALKALINE PHOSPHATASE 64 U/L (40-136); AMPHETAMINE SCREEN, URINE NEGATIVE (NEGATIVE); BARBITURATE SCREEN URINE NEGATIVE (NEGATIVE); BENZODIAZEPINES SCREEN URINE NEGATIVE (NEGATIVE); BILIRUBIN,TOTAL 0.3 MG/DL (0.1-1.0); BUN/CREATININE RATIO 14; CALCIUM 9.5 MG/DL (8.5-10.1); CANNABINOID SCREEN, URINE NEGATIVE (NEGATIVE); CARBON DIOXIDE 24 MMOL/L (21-32); CHLORIDE 101 MMOL/L (98-107); COCAINE SCREEN URINE NEGATIVE (NEGATIVE); CREATININE SERUM 0.92 MG/DL (0.60-1.30); GFR ESTIMATED > 60; GLUCOSE 99 MG/DL (70-105); METHADONE STAT NEGATIVE (NEGATIVE); METHAMPHETAMINE SCREEN URINE S NEGATIVE (NEGATIVE); OPIATE SCREEN URINE NEGATIVE (NEGATIVE); OXYCODONE STAT NEGATIVE (NEGATIVE); POTASSIUM 3.9 MMOL/L (3.6-5.0); PROPOXYPHENE STAT NEGATIVE (NEGATIVE); SALICYLATE < 5.0 MG/DL (5.0-20.0); SODIUM 140 MMOL/L (135-145); TRICYCLIC ANTIDEPRESSANTS SCRE NEGATIVE (NEGATIVE)
[2019-04-18 18:58] LABS: ACETAMINOPHEN < 10 UG/ML (10-30)
--- NOTE | 2019-04-18 19:45 | NUR ---
Visual check on pt. Pt reports she has been unable to eat food in >24hrs d/t nausea. Provider notified.
[2019-04-18] MEDS ORDERED: ONDANSETRON 4 MG (ZOFRAN) ORAL DISSOLVE TAB PO ONE (20:00)
--- NOTE | 2019-04-18 20:23 | NUR ---
Pt amb to restroom. , Venus, @ side.
--- NOTE | 2019-04-18 20:27 | NUR ---
Pt moved to room #8 @ this time per room availability. Pt remains A&OX4. Voices no c/o or concerns @ this time. Pt , Venus, remains @ side. Will continue to monitor.
[2019-04-18 21:40] VITALS: BP 116/68
--- NOTE | 2019-04-18 21:40 | NUR ---
VIKKI NDIAYE admitted to room 427-1, with an admitting diagnosis of SI, on 04/18/19 from ED via WHEELCHAIR, accompanied by STAFF.VIKKI NDIAYE introduced to surroundings, call light, bed controls, phone, TV, temperature control, lights, meal times, smoking policy, visitor policy, side rail policy, bathrooms and showers. Patient Rights given to patient in the handbook. VIKKI NDIAYE verbalizes understanding that [facility] is not responsible for the loss or damage to any personal effects or valuables that are kept in the patients posession during their hospitalization. T
[2019-04-18] MEDS ORDERED: PRAZOSIN 1 MG CAPSULE (MINIPRESS) NON-FORMULARY PO SCH (21:52)
[2019-04-18] MEDS ORDERED: ACETAMINOPHEN 500 MG TAB (TYLENOL) PO PRN (22:00)
[2019-04-18] MEDS ORDERED: IBUPROFEN 800 MG (MOTRIN) TAB PO PRN (22:00)
[2019-04-18] MEDS ORDERED: LORazepam 1 MG (ATIVAN) TAB PO PRN (22:00)
[2019-04-18] MEDS ORDERED: ONDANSETRON 4 MG (ZOFRAN) ORAL DISSOLVE TAB PO PRN (22:00)
[2019-04-18 22:03] VITALS: BP 116/68
[2019-04-18] MEDS: OXcarbazepine (TRILEPTAL) 300 MG TAB PO SCH (23:00)
[2019-04-18] MEDS ORDERED: ANTACID SUSP 30 ML UDC (MYLANTA) PO PRN (23:30)
[2019-04-18 23:45] VITALS: BP 103/57
[2019-04-19 03:29] VITALS: BP 110/55
[2019-04-19] MEDS ORDERED: FLU QUADRIvalent (5+ YOA) 2019-2020 (AFLURIA) 0.5 ML IM ONE ×2 (07:30→11:12)
[2019-04-19 08:00] VITALS: BP 106/58
[2019-04-19] MEDS: OXcarbazepine (TRILEPTAL) 300 MG TAB PO SCH (08:36)
[2019-04-19] MEDS ORDERED: PRAZ1CAP2 PO (08:43)
[2019-04-19] MEDS ORDERED: PRAZOSIN HCL 3 MG PO SCH (09:00)
[2019-04-19] MEDS ORDERED: OXCA150T3 PO (09:17)
[2019-04-19] MEDS ORDERED: PRAZ2CAP2 PO (09:17)
[2019-04-19] MEDS ORDERED: PALI9TAB PO (09:17)
--- NOTE | 2019-04-19 09:26 | NUR ---
SPOKE WITH THE PATIENT ABOUT HER MEDICATIONS. SHE LISTED WHAT SHE IS TAKING. I CALLED [facility] TO VERIFY. [facility] FILLED: 03-16-19 TRILEPTAL 150MG BID 03-16-19 INVEGA 9MG HS 03-16-19 PRAZOSIN 1MG HS 03-16-19 PRAZOSIN 2MG HS WHEN I ASKED HER ABOUT THE FOLLOWING SHE STATES SHE IS SUPPOSED TO TAKE THEM BUT IS OUT. [facility] LAST FILLED THEM: 10-27-18 LIPITOR 80MG #30 METFORMIN (NOT OF FILE AT [facility]) THEY HAVE BEEN FILLED MORE RECENTLY AT [facility] ACCORDING TO THE EXT MED HX: LIPITOR 80MG #14 01-25-19 METFORMIN ER 500MG #30 12-31-18 I PUT THEM ON THE MED REC AND NOTED THE PAST DUE FILL DATES SHE TAKES ZYRTEC DAILY NEEDED FOR ALLERGIES
[2019-04-19] MEDS ORDERED: ATOR80TA76 PO (09:30)
[2019-04-19] MEDS ORDERED: METF500T8 PO (09:30)
--- NOTE | 2019-04-19 10:09 | NUR ---
Pt asked about home med Prazosin, she said she does take the medication but is unable to have someone bring it at this time. Pharmacy notified
--- NOTE | 2019-04-19 10:16 | Short Stay Summary-Hospitalist ---
History of Present Illness HPI/Chief Complaint CC: Suicidal Ideation HPI: This is a 44yoWF who has a PMH of suicidal Ideation requiring admission to a psych facility in [place] who presents to the ER with similar complaints and pt was deemed stable from a medical standpoint but needed admission and arrangements were made to DC to psych facility. Source: patient Exam Limitations: no limitations Date Seen 04/19/19 Time Seen by a Provider: 09:45 Attending Physician Marlin Anguiano DO [facility] [place] Referring Physician Date of Admission Apr 18, 2019 at 20:46 Home Medications & Allergies Home Medications Reviewed patient Home Medication Reconciliation performed by pharmacy medication reconciliations health type technician and/or nursing. Patients Allergies have been reviewed. Allergies Allergies Coded Allergies prednisone (Verified Allergy, Mild, "MAKES HER MEAN", 09/20/18) tomato (Unverified Allergy, Unknown, HIVES, 05/17/14) Past Tktzeif-Vsgnam-Dsafah Hx Past Med/Social Hx: Reviewed Nursing Past Med/Soc Hx, Reviewed and Corrections made Patient Social History Marrital Status: Employed/Student: employed Alcohol Use: Denies Use Recreational Drug Use: No Smoking Status: Current Everyday Smoker Type Used: Electronic/Vapor 2nd Hand Smoke Exposure: Yes Recent Foreign Travel: Yes ([place] in August 2018) Contact w/other who traveled: Yes (/trip to [place] August 2018 (Cruise)) Recent Hopitalizations: No Recent Infectious Disease Expo: No Immunizations Up To Date Tetanus Booster (TDap): Unknown Date of Pneumonia Vaccine: Mar 31, 2014 Date of Influenza Vaccine: Mar 07, 2018 Seasonal Allergies Seasonal Allergies: No Past Medical History Surgeries: Abdominal, Bladder Surgery, Cardiac, Gallbladder, Hysterectomy, Oophorectomy, Orthopedic Cardiac: High Cholesterol : No Reproductive: No Sexually Transmitted Disease: No HIV/AIDS: No Female Reproductive Disorders: Polycystic Ovarian Dis Hysterectomy, Menopausal Genitourinary: Kidney Stones Gastrointestinal: Gastroesophageal Reflux Musculoskeletal: Arthritis Loss of Vision: Bilateral Hearing Impairment: Denies Psychosocial: Sleep Difficulties, Anxiety, PTSD, Bipolar, Depression History of Blood Disorders: No Adverse Reaction to Blood Wilson: No (N/A) Family History Alcoholism 19 FATHER, Onset:20's - 25 Cardiovascular disease 19 MOTHER, Onset:40's - 50 G8 SISTER, Onset:30's - 40 G8 SISTER, Onset:40's - 50 G8 SISTER, Onset:40's - 50 G8 SISTER, Onset:40's - 50 G8 SISTER, Onset:40's - 50 Gastroenteritis 19 MOTHER, Onset:50's - 60 Hypercholesterolemia 19 MOTHER, Onset:50's - 60 G8 SISTER, Onset:30's - 40 G8 SISTER, Onset:40's - 50 G8 SISTER, Onset:40's - 50 G8 SISTER, Onset:40's - 50 G8 SISTER, Onset:40's - 50 Neoplasm 19 FATHER, Onset:50's - 60 Heart Disease, Stroke Review of Systems Constitutional: see HPI Psychiatric/Neurological: Depressed Physical Exam Physical Exam Vital Signs Vital Signs - First Documented 04/18/19 17:24 Temp 36.9 Pulse 78 Resp 20 B/P (MAP) 114/77 (89) Pulse Ox 96 O2 Delivery Room Air Capillary Refill : Less Than 3 Seconds Height, Weight, BMI Height: 5'6.00" Weight: 207lbs. 0.0oz. 93.018196gv; 36.62 BMI Method:Stated General Appearance: No Apparent Distress, WD/WN Eyes: Bilateral Eye Normal Inspection, Bilateral Eye PERRL HEENT: PERRL/EOMI, TMs Normal, Normal ENT Inspection, Pharynx Normal Neck: Full Range of Motion, Normal Inspection, Non Tender, Supple, Carotid Bruit Respiratory: Chest Non Tender, Lungs Clear, Normal Breath Sounds, No Accessory Muscle Use, No Respiratory Distress Cardiovascular: Regular Rate, Rhythm, No Edema, No Gallop, No JVD, No Murmur, Normal Peripheral Pulses Gastrointestinal: Normal Bowel Sounds, No Organomegaly, No Pulsatile Mass, Non Tender, Soft Back: Normal Inspection, No CVA Tenderness, No Vertebral Tenderness Extremity: Normal Capillary Refill, Normal Inspection, Normal Range of Motion, Non Tender, No Calf Tenderness, No Pedal Edema Neurologic/Psychiatric: Alert, Oriented x3, No Motor/Sensory Deficits, Normal Mood/Affect Skin: Normal Color, Warm/Dry Lymphatic: No Adenopathy Results Results/Procedures Labs Laboratory Tests 04/18/19 17:58 Patient resulted labs reviewed. Short Stay Diagnosis Discharge Diagnosis-Short Stay Admission Diagnosis Suicidal ideation Final Discharge Diagnosis Resolved suicidal ideation Conclusion Plan No longer suicidal so DC home Diagnosis/Problems Diagnosis/Problems (1) Suicidal ideation Status: Acute Clinical Quality Measures DVT/VTE Risk/Contraindication: Risk Factor Score Per Nursin RFS Level Per Nursing on Admit: 2=Moderate MARLIN ANGUIANO DO Apr 19, 2019 10:16 POS
--- NOTE | 2019-04-19 10:55 | NUR ---
This CM/SS and ALICIA Rasmussen spoke with the patient due to a referral for SI. The patient was laying in bed during the visit. The patient states that the ER staff last night called [facility] to find an inpatient bed. This CM/SS sent over referral information to [facility] this morning and they declined due to "capability". This CM/SS called [facility] ([phone]) for bed availability. [facility] stated they have a bed available. Information was sent to them ( ) and awaiting approval. Will continue to follow.
[2019-04-19 12:00] VITALS: BP 111/51
--- NOTE | 2019-04-19 14:17 | NUR ---
CM/SS visited patient per patient request. The patient wanted to visit with this CM/SS to talk about leaving without having to go to [facility]. This CM/SS consulted Pamela Jones. Pamela called [facility] and talked with martin who is sending over someone to screen the patient. The patient verbalized understanding. The patient states that she has a refill of her medications and she has a place to stay with her daughter Millie. The patient states that her daughter will watch over her and keep her safe. The patient reports that she plans to move to [place] with her aunt eventually to get away from her trigger (). Will continue to follow.
[2019-04-19 16:21] VITALS: BP 114/56
--- NOTE | 2019-04-19 17:02 | NUR ---
Pt willing to talk with [facility] Counselor Martha and together made a Safety Plan if pt again experiences suicidal ideation, Pt wants to be discharged to the care of her daughter Millie where she has been living for several months.Millie is also wiling to be responsible for pt and will seek help through Emergency Services if pt again becomes anxious and depressed.[facility] by a Dr. Cox and she states that she has her mood stabilizer medicatioi which helps. Pt has been followed by [facility] for years and has an open case there also. Pt apparently has been stable for over ten years but began having anxiety and depression in October of this year when she began having difficulty in her relationship with her estranged . Currently pt denies suicidal ideation and is requesting discharge to the care of her daughter Millie. Pt states she will make her own followup appt. with her therapist Dr. Farias and will access the Emergency [facility] if the need arises. copy of safety plan in chart.
--- NOTE | 2019-04-19 17:10 | NUR ---
Dr Anguiano notified of pt's psych eval. Pt ok to dc home per [facility]
--- NOTE | 2019-04-19 17:27 | NUR ---
Pt dc'd home with family Millie (daughter). Pt instructed to make follow up appointment with Dr. Farias and to take her meds as prescribed. Pt agrees to do so, and is in no distress at this time. All questions answered, pt taken to ground level with staff.
[2019-04-19 17:32] VITALS: BP 114/56
--- NOTE | 2019-04-19 17:34 | NUR ---
VIKKI NDIAYE demonstrates understanding of discharge instructions and accurately returns instructions upon questioning. Copy of Post-Discharge Instructions and Medication Discharge Instructions given to pt. VIKKI NDIAYE is able to manage continuing needs after discharge. Patients belongings returned to pt. Skin dry and intact; no breakdown noted. Patient discharged from [facility] on 04/19/19 at 1728. VIKKI NDIAYE left floor via ambulation, accompanied by staff.
== END 2019-04-19 17:08 | disposition home or self-care (01) ==
LOC: EDUNIT# 17:10 → ER 17:11 → 4TH 20:46 → UNDOADMOB 20:46 → 4TH 21:40 → UNDODISOB 04-19 17:28
PROVIDERS: ADMIT Internal Medicine; ATTEND Internal Medicine
DX: R45.851 Suicidal ideations (principal); F43.10 Post-traumatic stress disorder, unspecified; F41.9 Anxiety disorder, unspecified; F31.9 Bipolar disorder, unspecified; F17.299 Nicotine dependence, other tobacco product, with unspecified nicotine-induced disorders; E78.00 Pure hypercholesterolemia, unspecified; K21.9 Gastro-esophageal reflux disease without esophagitis; M19.90 Unspecified osteoarthritis, unspecified site; G47.9 Sleep disorder, unspecified; Z91.5 Personal history of self-harm; Z88.8 Allergy status to other drugs, medicaments and biological substances; Z91.018 Allergy to other foods; Z79.84 Long term (current) use of oral hypoglycemic drugs; Z90.710 Acquired absence of both cervix and uterus; Z79.82 Long term (current) use of aspirin; Z82.49 Family history of ischemic heart disease and other diseases of the circulatory system; Z82.3 Family history of stroke; Z80.9 Family history of malignant neoplasm, unspecified
CPT/HCPCS: 36415; 80053; 80306; 80320; 80329; 81000; 84703; 85025; 93005; G0378